=== PATIENT | male | born 1960 | race Caucasian/White ===

== ENCOUNTER → 2016-11-22 | Outpatient (CLI) | payer BC ==
--- NOTE | 2016-11-22 21:10 | XR ---
EXAMINATION TYPE: XR cervical spine comp DATE OF EXAM: 11/22/2016 4:54 PM TECHNIQUE: Frontal, lateral, oblique, and open mouth view of the cervical spine are obtained. HISTORY: Cervicalgia per order COMPARISON: MRI cervical spine May 28, 2015. FINDINGS: The cervical spine is visualized in its entirety from C1 thru the top of T1 level, it is s atisfactory in alignment without evidence of acute fracture or dislocation. The pre-vertebral soft t issue appears within normal limits. The C1-C2 articulation is within normal limits on the open mouth view. Vertebral body heights are maintained. There is mild to moderate multilevel spurring centered in the mid cervical spine. There is mild disc space narrowing at C6-C7 level. There are multilevel u ncovertebral facet degenerative changes seen bilaterally. The oblique images are within normal limits . Overlying soft tissue is unremarkable. IMPRESSION: Multilevel degenerative change as detailed above.
--- NOTE | 2016-11-22 21:14 | XR ---
EXAMINATION TYPE: XR lumbar spine 2 or 3V DATE OF EXAM: 11/22/2016 4:54 PM CLINICAL HISTORY: Low back pain for months. TECHNIQUE: Frontal and lateral images of the lumbar spine are obtained. COMPARISON: CT abdomen and pelvis January 26, 2015 FINDINGS: There are 5 lumbar type vertebral bodies identified. The lumbar spine shows persistent gr yessy 1 anterolisthesis L4 on L5 without evidence of acute fracture or dislocation. Vertebral body heig hts are within normal limits. There is mild disc space narrowing at L3-L4 and L4-L5 levels . Mild anterior spurring L3-L4 level is seen. Multilevel facet arthropathy is noted at lower lumbar levels. Some vascular calcification in the overlying soft tissue is seen. IMPRESSION: Multilevel degenerative changes in the lumbar spine as detailed above, no significant suellen nge from prior CT is identified.
== END | disposition home or self-care (01) ==
LOC: RADXRMAIN 16:21
PROVIDERS: ATTEND Physician Assistant
DX: M47.816 Spondylosis without myelopathy or radiculopathy, lumbar region (principal); M47.812 Spondylosis without myelopathy or radiculopathy, cervical region
CPT/HCPCS: 72050; 72100

== ENCOUNTER → 2017-03-01 | Outpatient (CLI) | payer BC ==
--- NOTE | 2017-03-01 13:08 | MR ---
EXAMINATION TYPE: MR cervical spine wo con DATE OF EXAM: 03/01/2017 9:45 AM COMPARISON: Previous exam 28 May 2015 HISTORY: Cervical disc degeneration TECHNIQUE: Multiplanar, multisequence images of the cervical spine were acquired. C2-C3: There is foraminal encroachment right greater than left. No evident disc herniation or central canal stenosis. C3-C4: Small central posterior disc protrusion causes minimal anterior mass effect on the thecal sac. Bilateral foraminal encroachment is present, some loss of disc height and signal noted. C4-C5: Bilateral foraminal encroachment is present. Broad-based posterior disc bulge causes only mini mal anterior mass effect on the thecal sac, loss of disc height is present C5-C6: Posterior extension of central disc herniation causes anterior mass effect on the thecal sac. No significant central stenosis. There is some loss of disc height and signal compatible with disc de siccation and degenerative disc disease. Foraminal encroachment is stable right greater than left. C6-C7: Similar to prior exam there is posterior extension of endplate disc complex resulting in moder ate to severe central canal stenosis, bilateral foraminal encroachment is present lateral extension e ndplate disc complex, loss of disc height and signal, there is associated spondylosis. C7-T1: No evidence for degenerative disc disease. No disc bulge/herniation or protrusion. No Canal stenosis. Foramina are patent bilaterally. Cervical segments are intact. There is normal alignment. Cervical spinal cord is of normal signal. Craniovertebral junction relationships are within normal limits. Cervical vertebral bodies show pre served height and alignment. IMPRESSION: Findings are essentially stable. Multilevel degenerative disc disease and facet arthropathy. Spinal s tenosis greatest at C6-7 as on prior exam.
== END | disposition home or self-care (01) ==
LOC: RADMRIMAIN 09:17
PROVIDERS: ATTEND Family Medicine
DX: M48.02 Spinal stenosis, cervical region (principal); M50.30 Other cervical disc degeneration, unspecified cervical region; M46.92 Unspecified inflammatory spondylopathy, cervical region
CPT/HCPCS: 72141

== ENCOUNTER → 2017-09-11 | Outpatient (CLI) | payer BC ==
--- NOTE | 2017-09-11 07:31 | MR ---
EXAMINATION TYPE: MR lumbar spine wo con DATE OF EXAM: 09/11/2017 COMPARISON: X-ray dated 11/22/2016 HISTORY: Lumbago TECHNIQUE: T1 and T2 axial and sagittal images of the lumbar spine are submitted. FINDINGS: There is no abnormal signal seen within the visualized spinal cord or paraspinal soft tissu es. Vertebral hemangioma T12 and L1. At L1-2 there is no disc herniation or canal stenosis. No foraminal encroachment. Vertebral body felicita ngioma of L1. At L2-3 there is hypertrophic change of the facets with no disc herniation or canal stenosis. No fora edith encroachment. At L3-4 there is degenerative disc disease and facet arthropathy. Broad-based central disc bulging. M ild effacement of thecal sac. There is mild bilateral foraminal encroachment. At L4-5 there is facet arthropathy there is marked. Remote trauma involving the left facet joint not excluded. There is diffuse circumferential disc bulging. Moderate bilateral foraminal encroachment an d borderline to mild central stenosis. At L5-S1 there is marked facet arthropathy. There is circumferential disc bulging and mild bilateral foraminal encroachment. No Canal stenosis. IMPRESSION: 1. Multilevel degenerative disc disease with facet arthropathy particularly noted at L4-5 and L5-S1 a s discussed above. Results in grade 1 anterolisthesis of L4 on L5 with bilateral foraminal encroachme nt and borderline to mild canal stenosis. 2. Multilevel foraminal encroachment as discussed above with no evidence of discrete herniation.
== END | disposition home or self-care (01) ==
LOC: RADMRIMAIN 06:32
PROVIDERS: ATTEND Psychiatry & Neurology Pain Medicine
DX: M48.061 Spinal stenosis, lumbar region without neurogenic claudication (principal); M43.16 Spondylolisthesis, lumbar region; M51.37 Other intervertebral disc degeneration, lumbosacral region; M46.97 Unspecified inflammatory spondylopathy, lumbosacral region; Z88.2 Allergy status to sulfonamides
CPT/HCPCS: 72148

== ENCOUNTER → 2018-03-28 | Outpatient (CLI) | payer BC ==
--- NOTE | 2018-03-28 11:02 | XR ---
EXAMINATION TYPE: XR chest 2V DATE OF EXAM: 03/28/2018 COMPARISON: 01/26/2015 HISTORY: Cough and wheezing for 4 months TECHNIQUE: Frontal and lateral views of the chest are obtained. FINDINGS: There is no focal air space opacity, pleural effusion, or pneumothorax seen. The cardiac silhouette size is within normal limits. The osseous structures are intact. Degenerative changes of the thoracic spine are slightly progressed in comparison to the prior. IMPRESSION: No acute cardiopulmonary process.
== END | disposition home or self-care (01) ==
LOC: RADXRMAIN 10:30
PROVIDERS: ATTEND Physician Assistant
DX: R05 Cough (principal)
CPT/HCPCS: 71046

== ENCOUNTER → 2018-09-19 | Outpatient (CLI) | payer BC ==
--- NOTE | 2018-09-19 14:51 | XR ---
EXAMINATION TYPE: XR tibia fibula LT DATE OF EXAM: 09/19/2018 CLINICAL HISTORY: pain TECHNIQUE: AP and lateral images of the left tibia and fibula are obtained. COMPARISON: None. FINDINGS: There is no acute fracture/dislocation evident. The joint spaces appear within normal garcia its. The overlying soft tissue appears unremarkable. IMPRESSION: There is no acute fracture or dislocation seen. ICD 10 NO FRACTURE, INITIAL EVALUATION
== END ==
LOC: RADXRMAIN 13:47
PROVIDERS: ATTEND Physician Assistant
DX: M79.605 Pain in left leg (principal)

== ENCOUNTER → 2018-10-15 | Outpatient (CLI) | payer BC ==
--- NOTE | 2018-10-15 10:54 | US ---
EXAMINATION TYPE: US liver DATE OF EXAM: 10/15/2018 COMPARISON: CT 2014. CLINICAL HISTORY: R94.5 Abnormal results of liver function studies. EXAM MEASUREMENTS: Liver Length: 11.5 cm Gallbladder Wall: 0.3 cm CBD: 0.5 cm Right Kidney: 11.1 x 6.3 x 5.4 cm Pancreas: not visualized due to midline bowel gas Liver: Increased attenuation Gallbladder: No stones seen Evidence for sonographic Fried's sign: No CBD: wnl Right Kidney: No hydronephrosis or masses seen Suboptimal evaluation of pancreas on images saved secondary to shadowing from overlying bowel gas. Vi sualized liver is heterogeneously hyperechoic in appearance. Evaluation for focal masses is suboptima l due to the heterogeneity. No intrahepatic ductal dilatation is seen. IMPRESSION: Marked heterogeneous hyperechoic appearance of liver identified could reflect product of diffuse fatty infiltration or underlying hepatocellular disease. Imaging guided random biopsy for tis norris analysis can be performed if desired.
== END ==
LOC: RADUSWWP 10:26
PROVIDERS: ATTEND Family Medicine
DX: R94.5 Abnormal results of liver function studies (principal)
CPT/HCPCS: 76705

== ENCOUNTER → 2018-11-06 | Outpatient (CLI) | payer BC ==
[2018-11-06 15:29] VITALS: BMI 30.4
== END | disposition home or self-care (01) ==
LOC: LABWHC1 13:01
PROVIDERS: ATTEND Family Medicine
DX: E78.5 Hyperlipidemia, unspecified (principal)
CPT/HCPCS: 97802

== ENCOUNTER 2019-07-09 19:07 | Observation (INO) | payer BC ==
[2019-07-09] MEDS ORDERED: ONDANSETRON 4 MG/2 ML VIAL IVP STA (20:54)
[2019-07-09] MEDS ORDERED: KETOROLAC 30 MG/ML 1 ML VIAL IVP STA (20:54)
[2019-07-09] MEDS ORDERED: SODIUM CHLORIDE 0.9% 1,000 ML IV ONE (20:54)
--- NOTE | 2019-07-09 21:37 | XR ---
EXAMINATION TYPE: XR chest 2V DATE OF EXAM: 07/09/2019 COMPARISON: 03/28/2018 HISTORY: The right of the breathing TECHNIQUE: Frontal and lateral views of the chest are obtained. FINDINGS: Heart and mediastinum are normal. Lungs are clear. Diaphragm is normal. There are chest le ads. Bony thorax is intact. IMPRESSION: Normal chest. No change.
[2019-07-09 21:38] LABS: Basophils # (A) 0.3 k/uL (0-0.2); Basophils % (A) 2 %; Eosinophils # (A) 0.1 k/uL (0-0.7); Eosinophils % (A) 1 %; HCT 46.1 % (39.0-53.0); HGB 15.3 gm/dL (13.0-17.5); Lymphocytes # (A) 0.7 k/uL (1.0-4.8); Lymphocytes % (A) 6 %; MCH 29.6 pg (25.0-35.0); MCHC 33.1 g/dL (31.0-37.0); MCV 89.4 fL (80.0-100.0); Mean Platelet Volume 7.1; Monocytes # (A) 0.8 k/uL (0-1.0); Monocytes % (A) 7 %; Neutrophils # (A) 10.3 k/uL (1.3-7.7); Neutrophils % (A) 84 %; Platelet Count 310 k/uL (150-450); RBC 5.16 m/uL (4.30-5.90); RDW 12.9 % (11.5-15.5); WBC 12.3 k/uL (3.8-10.6)
[2019-07-09 21:52] LABS: D-Dimer 0.35 mg/L FEU (<0.60); INR 0.9 (<1.2); Partial Thromboplastin Time 22.6 sec (22.0-30.0); Prothrombin Time 9.4 sec (9.0-12.0)
[2019-07-09 22:02] LABS: ALT 34 U/L (21-72); AST 34 U/L (17-59); African American GFR (CKD) >90 (>60 ml/min/1.73 sqM); Albumin 4.9 g/dL (3.5-5.0); Alkaline Phosphatase 93 U/L (38-126); Amylase 41 U/L (30-110); Anion Gap 11 mmol/L; Blood Urea Nitrogen 22 mg/dL (9-20); Calcium 9.9 mg/dL (8.4-10.2); Carbon Dioxide 26 mmol/L (22-30); Chloride 104 mmol/L (98-107); Glucose 128 mg/dL (74-99); Potassium 4.9 mmol/L (3.5-5.1); Sodium 141 mmol/L (137-145); Total Bilirubin 0.3 mg/dL (0.2-1.3); Total Protein 8.1 g/dL (6.3-8.2)
[2019-07-09] MEDS ORDERED: HYDROcodone/APAP 10-325MG 1 EACH TAB PO ONE (23:58)
--- NOTE | 2019-07-09 23:59 | CT ---
EXAMINATION TYPE: CT brain wo con DATE OF EXAM: 07/09/2019 COMPARISON: None HISTORY: Headache CT DLP: mGycm Automated exposure control for dose reduction was used. FINDINGS: Ventricles have normal size. There is no mass effect nor midline shift. There is no sign of intracran ial hemorrhage. The calvarium is intact. IMPRESSION: NEGATIVE HEAD CT SCAN.
[2019-07-10] MEDS ORDERED: NALOXONE 0.4 MG/ML 1 ML VIAL IV PRN (00:05)
[2019-07-10] MEDS ORDERED: ONDANSETRON 4 MG/2 ML VIAL IVP PRN (00:05)
--- NOTE | 2019-07-10 00:05 | ED ---
SOB HPI - General Chief Complaint: Shortness of Breath Stated Complaint: syncope Time Seen by Provider: 07/09/19 20:00 Source: patient Mode of arrival: wheelchair Limitations: no limitations - History of Present Illness Initial Comments: 59-year-old male patient presents to the emergency department today for evaluation after experiencing episode of shortness of breath at work. Patient states that around 7 PM this evening he developed acute onset of dizziness, sweats, shortness of breath, chest pain, and vomiting. Patient states he is having discomfort and bloating in his abdomen. He states that he is currently being treated for upper respiratory infection with Augmentin and prednisone. Patient states he took these medications approximately 2 hours prior to symptom onset. Patient states that he left work and went to his car where he passed out. Patient is unsure how long he was out for. Patient is also reporting severe headache. Denies history of headaches. Denies recent head injury. Denies any blurred or double vision. States he is dizzy. Denies any numbness or tingling to his extremities. Patient denies any recent rash, back pain, numbness, tingling, dizziness, weakness, hematuria, dysuria, urinary urgency, urinary frequency, or any other complaints. - Related Data Home Medications Medication Instructions Recorded Confirmed amLODIPine [Norvasc] 10 mg PO DAILY 02/06/15 07/09/19 Amoxic-Pot Clav 875-125Mg 1 tab PO Q12HR 07/09/19 07/09/19 [Augmentin 875-125] Cyclobenzaprine [Flexeril] 10 mg PO TID 07/09/19 07/09/19 Hydrocodone Bitartrate [Hysingla 40 mg PO BID 07/09/19 07/09/19 ER] Losartan Potassium 50 mg PO HS 07/09/19 07/09/19 methylPREDNISolone [Medrol Dose See Taper PO DIRECTED 07/09/19 07/09/19 Pack] Previous Rx's Medication Instructions Recorded Metoprolol Tartrate [Lopressor] 50 mg PO BID #60 tab 01/30/15 Allergies Allergy/AdvReac Type Severity Reaction Status Date / Time Sulfa (Sulfonamide Allergy Severe Anaphylaxis Verified 07/09/19 20:06 Antibiotics) Review of Systems ROS Statement: Those systems with pertinent positive or pertinent negative responses have been documented in the HPI. ROS Other: All systems not noted in ROS Statement are negative. Past Medical History Past Medical History: Cancer, GERD/Reflux, Hyperlipidemia, Hypertension, Osteoarthritis (OA), Skin Disorder Additional Past Medical History / Comment(s): PSORIASIS. HAD REACTION TO SULFA AFTER DOG BITE, he developed Alzo-Juan Manuel syndrome. History of Any Multi-Drug Resistant Organisms: None Reported Past Surgical History: Appendectomy, Tonsillectomy Additional Past Surgical History / Comment(s): RT HAND I&D D/T DOG BITE. NOSE FX REPAIR. EGD 01/2015. skin cancer to thumb with rmoval Past Anesthesia/Blood Transfusion Reactions: No Reported Reaction Past Psychological History: Depression Smoking Status: Never smoker Past Alcohol Use History: Occasional Past Drug Use History: None Reported - Past Family History Father Family Medical History: Cancer, Coronary Artery Disease (CAD) General Exam Limitations: no limitations General appearance: alert, in no apparent distress, other (This is a well- developed, well-nourished adult male patient in no acute distress. Vital signs upon presentation are temperature 98.6F, pulse 112, respirations 20, blood pressure 146/98, pulse ox 99% on room air.) Eye exam: Present: normal appearance, PERRL, EOMI. Absent: scleral icterus, conjunctival injection, periorbital swelling ENT exam: Present: normal exam, normal oropharynx, mucous membranes moist Respiratory exam: Present: normal lung sounds bilaterally. Absent: respiratory distress, wheezes, rales, rhonchi, stridor Cardiovascular Exam: Present: regular rate, normal rhythm, normal heart sounds. Absent: systolic murmur, diastolic murmur, rubs, gallop, clicks GI/Abdominal exam: Present: soft, normal bowel sounds. Absent: distended, tenderness, guarding, rebound, rigid Neurological exam: Present: alert, oriented X3, CN II-XII intact, other (Strength in all 4 extremities is 5/5) Psychiatric exam: Present: normal affect, normal mood Skin exam: Present: warm, dry, intact, normal color. Absent: rash Course Vital Signs 07/09/19 07/09/19 07/09/19 19:40 20:06 21:24 Temperature 98.6 F Pulse Rate 112 H 107 H 93 Respiratory 20 18 18 Rate Blood Pressure 146/98 114/64 134/95 O2 Sat by Pulse 99 99 96 Oximetry 07/09/19 07/09/19 23:00 23:30 Temperature Pulse Rate 105 H 101 H Respiratory 17 19 Rate Blood Pressure 137/97 134/96 O2 Sat by Pulse 98 99 Oximetry Medical Decision Making - Medical Decision Making 59-year-old male patient presents to the emergency department today for multiple complaints. Chief among them are headache, shortness of breath, and chest discomfort. Patient also reports vomiting, abdominal distention, and abdominal tenderness. Physical examination revealed mild tenderness over the lower abdomen. White blood cell count at 12. Chest x-ray showed no acute cardiopulmonary process. CT brain without contrast was unremarkable. Labs r eviewed and did reveal evidence for dehydration. I did discuss findings and results with the patient. Upon reevaluation he states he is not feeling any better. Continue 6 red shortness of breath and headache. He'll be admitted for serial troponins evaluation by cardiology. He verbalizes understanding and agrees with this plan. - Lab Data Result diagrams: 07/09/19 21:15 07/09/19 21:15 Lab Results 07/09/19 07/09/19 07/09/19 Range/Units 21:15 21:15 21:15 WBC 12.3 H (3.8-10.6) k/uL RBC 5.16 (4.30-5.90) m/uL Hgb 15.3 (13.0-17.5) gm/dL Hct 46.1 (39.0-53.0) % MCV 89.4 (80.0-100.0) fL MCH 29.6 (25.0-35.0) pg MCHC 33.1 (31.0-37.0) g/dL RDW 12.9 (11.5-15.5) % Plt Count 310 (150-450) k/uL Neutrophils % 84 % Lymphocytes % 6 % Monocytes % 7 % Eosinophils % 1 % Basophils % 2 % Neutrophils # 10.3 H (1.3-7.7) k/uL Lymphocytes # 0.7 L (1.0-4.8) k/uL Monocytes # 0.8 (0-1.0) k/uL Eosinophils # 0.1 (0-0.7) k/uL Basophils # 0.3 H (0-0.2) k/uL PT 9.4 (9.0-12.0) sec INR 0.9 (<1.2) APTT 22.6 (22.0-30.0) sec D-Dimer 0.35 (<0.60) mg/L FEU Sodium 141 (137-145) mmol/L Potassium 4.9 (3.5-5.1) mmol/L Chloride 104 (98-107) mmol/L Carbon Dioxide 26 (22-30) mmol/L Anion Gap 11 mmol/L BUN 22 H (9-20) mg/dL Creatinine 0.89 (0.66-1.25) mg/dL Est GFR (CKD-EPI)AfAm >90 (>60 ml/min/1.73 sqM) Est GFR (CKD-EPI)NonAf >90 (>60 ml/min/1.73 sqM) Glucose 128 H (74-99) mg/dL Calcium 9.9 (8.4-10.2) mg/dL Total Bilirubin 0.3 (0.2-1.3) mg/dL AST 34 (17-59) U/L ALT 34 (21-72) U/L Alkaline Phosphatase 93 (38-126) U/L Troponin I (0.000-0.034) ng/mL Total Protein 8.1 (6.3-8.2) g/dL Albumin 4.9 (3.5-5.0) g/dL Amylase 41 (30-110) U/L Lipase 50 (23-300) U/L 07/09/19 Range/Units 21:15 WBC (3.8-10.6) k/uL RBC (4.30-5.90) m/uL Hgb (13.0-17.5) gm/dL Hct (39.0-53.0) % MCV (80.0-100.0) fL MCH (25.0-35.0) pg MCHC (31.0-37.0) g/dL RDW (11.5-15.5) % Plt Count (150-450) k/uL Neutrophils % % Lymphocytes % % Monocytes % % Eosinophils % % Basophils % % Neutrophils # (1.3-7.7) k/uL Lymphocytes # (1.0-4.8) k/uL Monocytes # (0-1.0) k/uL Eosinophils # (0-0.7) k/uL Basophils # (0-0.2) k/uL PT (9.0-12.0) sec INR (<1.2) APTT (22.0-30.0) sec D-Dimer (<0.60) mg/L FEU Sodium (137-145) mmol/L Potassium (3.5-5.1) mmol/L Chloride (98-107) mmol/L Carbon Dioxide (22-30) mmol/L Anion Gap mmol/L BUN (9-20) mg/dL Creatinine (0.66-1.25) mg/dL Est GFR (CKD-EPI)AfAm (>60 ml/min/1.73 sqM) Est GFR (CKD-EPI)NonAf (>60 ml/min/1.73 sqM) Glucose (74-99) mg/dL Calcium (8.4-10.2) mg/dL Total Bilirubin (0.2-1.3) mg/dL AST (17-59) U/L ALT (21-72) U/L Alkaline Phosphatase (38-126) U/L Troponin I <0.012 (0.000-0.034) ng/mL Total Protein (6.3-8.2) g/dL Albumin (3.5-5.0) g/dL Amylase (30-110) U/L Lipase (23-300) U/L - EKG Data -: EKG Interpreted by Nm EKG Comments: EKG obtained at 2108 shows normal sinus rhythm with a ventricular rate of 89, MI interval 138, QRS duration 102, QT 348, QTC 423. No evidence of ST elevation or depression. - Radiology Data Radiology results: report reviewed, image reviewed Two-view x-ray of the chest is obtained. Report was reviewed in its entirety. Impression by Dr. Palacios shows normal chest with no change. CT brain without contrast was obtained. Report was reviewed in its entirety. Impression by Dr. Palacios shows negative head CT scan. Disposition Clinical Impression: Chest pain, Dyspnea, Headache Disposition: ADMITTED IP TO THIS [facility] Condition: Serious Referrals: Dayo Luo MD [Primary Care Provider] - 1-2 days Decision to Admit Reason: Admit from EC Decision Date: 07/10/19 Decision Time: 00:05
[2019-07-10 07:00] VITALS: BMI 30.8
--- NOTE | 2019-07-10 08:12 | P.CRDCN ---
History of Present Illness Consult date: 07/10/19 Requesting physician: Dayo Luo Chief complaint: diaphoresis, dizziness History of present illness: This is a pleasant 59-year-old gentleman with multiple medical issues. The patient states he has disc problems in his back for which she is treated at the pain clinic, he also has some nerve issues in his fingers and toes, also states he has several ALLERGIES to medications. He states he was told to have had a myocardial infarction in the past however he never underwent cardiac catheterization or intervention. Patient states that he has been dealing with an upper respiratory infection, he's been coughing up green sputum, and was initiated on Augmentin. Prior to this patient states he was also started on any medication at the pain clinic, he forgets the name. Patient was at work yesterday, states that he got extremely diaphoretic, developed chills and was shaking. Patient also states that he had a headache which initially started on Monday. He states that he walked out to his car to change his shirt because it was soaking wet, he knows that he needed to the car, but the next thing he recalls is waking up to one of his coworkers. Patient was then brought to the emergency room. On arrival to the emergency room, patient states he had some lower abdominal pain and continues to have chills. He denies having any chest discomfort. Patient does state that he felt short of breath, he's not sure if it was related to anxiety but he was unable to take a deep breath. Chest x-ray on admission was normal. CAT scan of the brain was negative. EKG shows normal sinus rhythm with no acute changes. Blood pressure ranges from 120 systolic to 160s systolic over 90, heart rate in the 70s, 99% on room air. White blood cell count 12.3, hemoglobin 15.3, beta count 310. D-dimer 0.3. Sodium 141, potassium 4.9, BUN 22, creatinine 0.8. Troponins are negative 2. Past Medical History Past Medical History: Cancer, GERD/Reflux, Hyperlipidemia, Hypertension, Osteoarthritis (OA), Skin Disorder Additional Past Medical History / Comment(s): PSORIASIS. HAD REACTION TO SULFA AFTER DOG BITE, he developed Lazo-Juan Manuel syndrome. History of Any Multi-Drug Resistant Organisms: None Reported Past Surgical History: Appendectomy, Tonsillectomy Additional Past Surgical History / Comment(s): RT HAND I&D D/T DOG BITE. NOSE FX REPAIR. EGD 01/2015. skin cancer to thumb with rmoval Past Anesthesia/Blood Transfusion Reactions: No Reported Reaction Past Psychological History: Depression Additional Psychological History / Comment(s): IN PAST Smoking Status: Never smoker Past Alcohol Use History: Occasional Past Drug Use History: None Reported - Past Family History Father Family Medical History: Cancer, Coronary Artery Disease (CAD) Medications and Allergies Home Medications Medication Instructions Recorded Confirmed Type Metoprolol Tartrate [Lopressor] 50 mg PO BID #60 tab 01/30/15 07/09/19 Rx amLODIPine [Norvasc] 10 mg PO DAILY 02/06/15 07/09/19 History Amoxic-Pot Clav 875-125Mg 1 tab PO Q12HR 07/09/19 07/09/19 History [Augmentin 875-125] Cyclobenzaprine [Flexeril] 10 mg PO TID 07/09/19 07/09/19 History Hydrocodone Bitartrate [Hysingla 40 mg PO BID 07/09/19 07/09/19 History ER] Losartan Potassium 50 mg PO HS 07/09/19 07/09/19 History methylPREDNISolone [Medrol Dose See Taper PO DIRECTED 07/09/19 07/09/19 History Pack] Allergies Allergy/AdvReac Type Severity Reaction Status Date / Time Sulfa (Sulfonamide Allergy Severe Anaphylaxis Verified 07/09/19 20:06 Antibiotics) Physical Exam Vitals: Vital Signs Temp Pulse Pulse Resp BP BP Pulse Ox 07/10/19 06:50 97.9 F 79 16 160/97 99 07/10/19 06:17 98.7 F 88 18 123/95 98 07/10/19 05:06 90 19 126/95 100 07/10/19 02:00 99 17 134/94 97 07/10/19 01:00 98 17 135/90 98 07/10/19 00:31 106 H 18 135/90 98 07/10/19 00:00 99 18 134/96 99 07/09/19 23:30 101 H 19 134/96 99 07/09/19 23:00 105 H 17 137/97 98 07/09/19 21:24 93 18 134/95 96 07/09/19 20:06 107 H 18 114/64 99 07/09/19 19:40 98.6 F 112 H 20 146/98 99 Intake and Output 07/09/19 07/10/19 07/10/19 22:59 06:59 14:59 Other: Weight 87.997 kg PHYSICAL EXAMINATION: GENERAL: 59-year-old gentleman in no acute distress at the time of my examination HEENT: Head is atraumatic, normocephalic. Pupils equal, round. Sclera anicteric. Conjunctiva are clear. Mucous membranes of the mouth are moist. Neck is supple. There is no elevated jugular venous pressure. No carotid bruit is heard. HEART EXAMINATION: Heart S1, S2 normal. No murmur or gallop heard. CHEST EXAMINATION: Lungs are clear to auscultation and precussion. No chest wall tenderness is noted on palpation or with deep breathing. ABDOMEN: Soft, mild lower abdominal tenderness . Bowel sounds are heard. No organomegaly noted. EXTREMITIES: 2+ peripheral pulses with no evidence of peripheral edema and no calf tenderness noted. NEUROLOGIC patient is awake, alert and oriented 3 . . Results 07/09/19 21:15 07/09/19 21:15 Cardiac Enzymes 07/09/19 07/09/19 07/10/19 Range/Units 21:15 21:15 03:24 AST 34 (17-59) U/L Troponin I <0.012 <0.012 (0.000-0.034) ng/mL Coagulation 07/09/19 Range/Units 21:15 PT 9.4 (9.0-12.0) sec APTT 22.6 (22.0-30.0) sec CBC 07/09/19 Range/Units 21:15 WBC 12.3 H (3.8-10.6) k/uL RBC 5.16 (4.30-5.90) m/uL Hgb 15.3 (13.0-17.5) gm/dL Hct 46.1 (39.0-53.0) % Plt Count 310 (150-450) k/uL Comprehensive Metabolic Panel 07/09/19 Range/Units 21:15 Sodium 141 (137-145) mmol/L Potassium 4.9 (3.5-5.1) mmol/L Chloride 104 (98-107) mmol/L Carbon Dioxide 26 (22-30) mmol/L BUN 22 H (9-20) mg/dL Creatinine 0.89 (0.66-1.25) mg/dL Glucose 128 H (74-99) mg/dL Calcium 9.9 (8.4-10.2) mg/dL AST 34 (17-59) U/L ALT 34 (21-72) U/L Alkaline Phosphatase 93 (38-126) U/L Total Protein 8.1 (6.3-8.2) g/dL Albumin 4.9 (3.5-5.0) g/dL Current Medications Generic Name Dose Route Start Last Admin Trade Name Freq PRN Reason Stop Dose Admin Hydrocodone Bitart/Acetaminophen 1 each 07/10/19 00:08 [place] 10 PO Q6H PRN Pain Amlodipine Besylate 10 mg 07/10/19 09:00 Norvasc PO DAILY RAJENDRA Losartan Potassium 50 mg 07/10/19 21:00 Cozaar PO HS RAJENDRA Metoprolol Tartrate 50 mg 07/10/19 09:00 Lopressor PO BID RAJENDRA Naloxone HCl 0.2 mg 07/10/19 00:05 Narcan IV Q2M PRN Opioid Reversal Ondansetron HCl 4 mg 07/10/19 00:05 Zofran IVP Q8HR PRN Nausea And Vomiting Intake and Output 07/09/19 07/10/19 07/10/19 22:59 06:59 14:59 Other: Weight 87.997 kg 07/09/19 21:15 07/09/19 21:15 EKG Interpretations (text) EKG shows normal sinus rhythm with no acute changes. Assessment and Plan Plan: Assessment and plan #1 symptoms of diaphoresis with associated chills and shaking, recently started on Augmentin for upper respiratory infection #2 episode of shortness of breath, inability to take a deep breath, no chest discomfort. Troponins negative 2. EKG shows normal sinus rhythm with no acute changes. #3 hypertension #4 chronic back problems, with chronic pain Plan Patient's presentation does not appear to be cardiac in nature. We will obtain an echocardiogram with Doppler study as well as third troponin. Further recommendations to follow. DNP note has been reviewed, I agree with a documented findings and plan of care. Patient was seen and examined.
[2019-07-10] MEDS: HYDROcodone/APAP 10-325MG 1 EACH TAB PO PRN ×3 (08:31→20:29)
[2019-07-10] MEDS: METOPROLOL TARTRATE 50 MG TAB PO SCH ×2 (08:31→20:29)
[2019-07-10] MEDS: amLODIPine 10 MG TAB PO SCH (08:31)
[2019-07-10] MEDS ORDERED: TRIMETHOBENZAMIDE 300 MG CAP PO PRN (11:51)
--- NOTE | 2019-07-10 11:52 | P.HPIM ---
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 Bebe ent was admitted from emergency room for chest pain as per emergency room doctor who discussed the case with me, however on evaluating the patient he states he did not have chest pain in his stated he came because of feeling well. He says about one-week ago he had some neck pain when he takes 3 pills of Medora which usually he takes, however Monday and Monday about 4-5 days ago he started to have it headache with runny nose and cough and with green phlegm, and burning in his throat. patient did not feel well so he went to see his PCP Dr. Luo on Monday about 2 days ago when he prescribed him steroids on Augmentin but he did not become sometime next day which is yesterday, patient states after couple hours from taking his pills he starts feeling pale sweating with shaking. He was at work and wanted to leave but he passed out in his van and has a friend help him out of the van so he came to the hospital where that time he is having headache and slurred just being with light bothering him with a little short of breath. Currently patient feels better with more symptoms improving including headache. But he denies dizziness or chest pain. He denies dyspnea currently. His runny nose has stopped. He still have coughing and he has lower abdominal pain. He states that he feels uncomfortable when he piece with some burning. Patient states is been constipated and his last bowel movement was about 3 days ago, no diarrhea. Patient has decreased appetite. Vitas looks stable. Showing mild leukocytosis of 12.3 K, ptosis of d-dimer were negative at 0.35 and 0.26, creatinine within normal limits at 0.8, serial troponins were negative. Liver enzymes not elevated. Negative CAT scan of the brain and chest x-ray for acute process per Radiologist. EKG showing normal sinus rhythm at [address]-T changes and QTC is 423. In the emergency room he was given fluid resuscitation and Toradol, Medora, Review of Systems CONSTITUTIONAL: No fever, no malaise, no fatigue. HEENT: No recent visual problems or hearing problems. Denied any sore throat. CARDIOVASCULAR: No orthopnea, PND, no palpitations, no syncope. PULMONARY: No shortness of breath, no cough, no hemoptysis. GASTROINTESTINAL: No diarrhea, no nausea, no vomiting, no abdominal pain. Normoactive bowel sounds. NEUROLOGICAL: No headaches, no weakness, no numbness. HEMATOLOGICAL: Denies any bleeding or petechiae. GENITOURINARY: Denies any burning micturition, frequency, or urgency. MUSCULOSKELETAL/RHEUMATOLOGICAL: Denies any joint pain, swelling, or any muscle pain. ENDOCRINE: Denies any polyuria or polydipsia. Past Medical History Past Medical History: Cancer, GERD/Reflux, Hyperlipidemia, Hypertension, Osteoarthritis (OA), Skin Disorder Additional Past Medical History / Comment(s): PSORIASIS. HAD REACTION TO SULFA AFTER DOG BITE, he developed Lazo-Juan Manuel syndrome. History of Any Multi-Drug Resistant Organisms: None Reported Past Surgical History: Appendectomy, Tonsillectomy Additional Past Surgical History / Comment(s): RT HAND I&D D/T DOG BITE. NOSE FX REPAIR. EGD 01/2015. skin cancer to thumb with rmoval Past Anesthesia/Blood Transfusion Reactions: No Reported Reaction Past Psychological History: Depression Additional Psychological History / Comment(s): IN PAST Smoking Status: Never smoker Past Alcohol Use History: Occasional Past Drug Use History: None Reported - Past Family History Father Family Medical History: Cancer, Coronary Artery Disease (CAD) Medications and Allergies Home Medications Medication Instructions Recorded Confirmed Type Metoprolol Tartrate [Lopressor] 50 mg PO BID #60 tab 01/30/15 07/09/19 Rx amLODIPine [Norvasc] 10 mg PO DAILY 02/06/15 07/09/19 History Amoxic-Pot Clav 875-125Mg 1 tab PO Q12HR 07/09/19 07/09/19 History [Augmentin 875-125] Cyclobenzaprine [Flexeril] 10 mg PO TID 07/09/19 07/09/19 History Hydrocodone Bitartrate [Hysingla 40 mg PO BID 07/09/19 07/09/19 History ER] Losartan Potassium 50 mg PO HS 07/09/19 07/09/19 History methylPREDNISolone [Medrol Dose See Taper PO DIRECTED 07/09/19 07/09/19 History Pack] Allergies Allergy/AdvReac Type Severity Reaction Status Date / Time Sulfa (Sulfonamide Allergy Severe Anaphylaxis Verified 07/09/19 20:06 Antibiotics) Physical Exam Vitals: Vital Signs Temp Pulse Pulse Resp BP BP Pulse Ox 07/10/19 08:00 98 F 95 18 166/100 99 07/10/19 06:50 97.9 F 79 16 160/97 99 07/10/19 06:17 98.7 F 88 18 123/95 98 07/10/19 05:06 90 19 126/95 100 07/10/19 02:00 99 17 134/94 97 07/10/19 01:00 98 17 135/90 98 07/10/19 00:31 106 H 18 135/90 98 07/10/19 00:00 99 18 134/96 99 07/09/19 23:30 101 H 19 134/96 99 07/09/19 23:00 105 H 17 137/97 98 07/09/19 21:24 93 18 134/95 96 07/09/19 20:06 107 H 18 114/64 99 07/09/19 19:40 98.6 F 112 H 20 146/98 99 Intake and Output 07/09/19 07/10/19 07/10/19 22:59 06:59 14:59 Other: Weight 87.997 kg GENERAL: The patient is alert and oriented x3, not in any acute distress. Well developed, well nourished. HEENT: Pupils are round and equally reacting to light. EOMI. No scleral icterus. No conjunctival pallor. Normocephalic, atraumatic. No pharyngeal erythema. No thyromegaly. CARDIOVASCULAR: S1 and S2 present. No murmurs, rubs, or gallops. PULMONARY: Chest is clear to auscultation, no wheezing or crackles. -ABDOMEN: Soft, suprapubic tenderness, no rebound tenderness or guarding, nondistended, normoactive bowel sounds. No palpable organomegaly. MUSCULOSKELETAL: No joint swelling or deformity. EXTREMITIES: No cyanosis, clubbing, or pedal edema. NEUROLOGICAL: Gross neurological examination did not reveal any focal deficits. SKIN: No rashes. Results CBC & Chem 7: 07/09/19 21:15 07/09/19 21:15 Labs: Abnormal Lab Results - Last 24 Hours (Table) 07/09/19 07/09/19 Range/Units 21:15 21:15 WBC 12.3 H (3.8-10.6) k/uL Neutrophils # 10.3 H (1.3-7.7) k/uL Lymphocytes # 0.7 L (1.0-4.8) k/uL Basophils # 0.3 H (0-0.2) k/uL BUN 22 H (9-20) mg/dL Glucose 128 H (74-99) mg/dL Thrombosis Risk Factor Assmnt - Choose All That Apply Any of the Below Risk Factors Present?: Yes Each Factor Represents 1 point: Age 41-60 years, Obesity (BMI >25) Thrombosis Risk Factor Assessment Total Risk Factor Score: 2 Thrombosis Risk Factor Assessment Level: Low Risk Assessment and Plan Assessment: Syncope Periods of slurred speech and headache Lower abdominal pain and tenderness with urinary discomfort Hyperlipidemia Hypertension GERD Chronic psoriasis Primary osteoarthritis Previous history of Ben Juan Manuel syndrome secondary to sulfa medication Plan: This is a pleasant 59 years old male who presents with several nonspecific symptoms including syncope, abdominal pain and period Of slurred speech. Call cardiology and neurology consult. We'll check for influenza and urine analysis. Repeat labs. We'll put the patient on telemetry. We'll check carotid duplex as well. Start patient on parenteral hydration . check bladder scan. We'll keep monitoring Labs and medication were reviewed.. Continue same treatment. Continue with symptomatic treatment. Resume home medication. Monitor lytes and vitals. DVT and GI prophylaxis. Further recommendations of the clinical course of the patient DVT prophylaxis: Subcutaneous heparin GI Prophylaxis: Pepcid Prognosis is guarded
[2019-07-10] MEDS: DEXTROSE 5%-0.9% NACL 1,000 ML IV SCH (12:01)
[2019-07-10 12:14] LABS: Basophils # (A) 0.1 k/uL (0-0.2); Basophils % (A) 1 %; Eosinophils # (A) 0.1 k/uL (0-0.7); Eosinophils % (A) 2 %; HCT 44.2 % (39.0-53.0); HGB 14.8 gm/dL (13.0-17.5); Lymphocytes # (A) 1.3 k/uL (1.0-4.8); Lymphocytes % (A) 18 %; MCH 30.7 pg (25.0-35.0); MCHC 33.6 g/dL (31.0-37.0); MCV 91.3 fL (80.0-100.0); Mean Platelet Volume 7.7; Monocytes # (A) 0.4 k/uL (0-1.0); Monocytes % (A) 6 %; Neutrophils # (A) 5.2 k/uL (1.3-7.7); Neutrophils % (A) 72 %; Platelet Count 274 k/uL (150-450); RBC 4.84 m/uL (4.30-5.90); RDW 12.9 % (11.5-15.5); WBC 7.3 k/uL (3.8-10.6)
--- NOTE | 2019-07-10 13:01 | ECHOF ---
Referral Reason:sob MEASUREMENTS -------- HEIGHT: 180.3 cm WEIGHT: 88.0 kg BP: 160/97 IVSd: 1.5 cm (0.6 - 1.1) LVIDd: 4.7 cm (3.9 - 5.3) LVPWd: 1.5 cm (0.6 - 1.1) IVSs: 1.7 cm LVIDs: 2.8 cm LVPWs: 1.8 cm LAESV Index (A-L): 17.50 ml/m Ao Diam: 3.2 cm (2.0 - 3.7) AV Cusp: 2.1 cm (1.5 - 2.6) LA Diam: 3.4 cm (2.7 - 3.8) MV EXCURSION: 16.312 mm (> 18.000) MV EF SLOPE: 115 mm/s (70 - 150) EPSS: 0.7 cm MV E Otilio: 0.60 m/s MV DecT: 188 ms MV A Otilio: 0.83 m/s MV E/A Ratio: 0.72 RAP: 5.00 mmHg RVSP: 21.14 mmHg FINDINGS -------- Sinus rhythm. This was a technically adequate study. The left ventricular size is normal. There is moderate concentric left ventricular hypertrophy. O verall left ventricular systolic function is normal with, an EF between 55 - 60 %. The diastolic fi lling pattern is normal for the age of the patient 11.55. The right ventricle is normal in size. Normal LA size by volume 22+/-6 ml/m2. The right atrial size is normal. Interatrial and interventricular septum intact. The aortic valve is trileaflet, and appears structurally normal. No aortic stenosis or regurgitation. The mitral valve leaflets are mildly thickened. Mild mitral regurgitation is present. The tricuspid valve appears structurally normal. Mild tricuspid regurgitation present. Right vent ricular systolic pressure is normal at < 35 mmHg. There is no pulmonic regurgitation present. The aortic root size is normal. Normal inferior vena cava with normal inspiratory collapse consistent with estimated right atrial pre ssure of 5 mmHg. The flow patterns, measured by Doppler, appear normal. There is no pericardial effusion. CONCLUSIONS -------- 1. Sinus rhythm. 2. This was a technically adequate study. 3. The left ventricular size is normal. 4. There is moderate concentric left ventricular hypertrophy. 5. Overall left ventricular systolic function is normal with, an EF between 55 - 60 %. 6. The diastolic filling pattern is normal for the age of the patient 11.55 7. Normal LA size by volume 22+/-6 ml/m2. 8. The aortic valve is trileaflet, and appears structurally normal. No aortic stenosis or regurgitati on. 9. The mitral valve leaflets are mildly thickened. 10. Mild mitral regurgitation is present. 11. The tricuspid valve appears structurally normal. 12. Mild tricuspid regurgitation present. 13. Right ventricular systolic pressure is normal at < 35 mmHg. 14. There is no pulmonic regurgitation present. 15. The aortic root size is normal. 16. Normal inferior vena cava with normal inspiratory collapse consistent with estimated right atrial pressure of 5 mmHg. 17. The flow patterns, measured by Doppler, appear normal. 18. There is no pericardial effusion. BREAK OFF WORKER: Fiorella Meade RDCS
[2019-07-10 13:02] LABS: African American GFR (CKD) >90 (>60 ml/min/1.73 sqM); Anion Gap 12 mmol/L; Blood Urea Nitrogen 21 mg/dL (9-20); Calcium 9.1 mg/dL (8.4-10.2); Carbon Dioxide 25 mmol/L (22-30); Chloride 103 mmol/L (98-107); Glucose 98 mg/dL (74-99); Potassium 4.2 mmol/L (3.5-5.1); Sodium 140 mmol/L (137-145)
--- NOTE | 2019-07-10 14:04 | US ---
EXAMINATION TYPE: US carotid duplex BILAT DATE OF EXAM: 07/10/2019 COMPARISON: NONE CLINICAL HISTORY: Syncope with slurred speech. Patient states passing out yesterday, HTN controlled w [facility] meds EXAM MEASUREMENTS: RIGHT: Peak Systolic Velocity (PSV) cm/sec ----- Right CCA: 49.4 ----- Right ICA: 59.2 ----- Right ECA: 43.3 ICA/CCA ratio: 1.2 RIGHT: End Diastole cm/sec ----- Right CCA: 16.4 ----- Right ICA: 18.6 ----- Right ECA: 7.8 LEFT: Peak Systolic Velocity (PSV) cm/sec ----- Left CCA: 105.6 ----- Left ICA: 97.8 ----- Left ECA: 62.5 ICA/CCA ratio: 0.9 LEFT: End Diastole cm/sec ----- Left CCA: 34.4 ----- Left ICA: 31.8 ----- Left ECA: 11.9 VERTEBRALS (direction of flow): Right Vertebral: Antegrade Left Vertebral: Antegrade Rhythm: Normal Lazaro scale images show some minimal hyperplasia bilaterally without significant plaque at carotid bul b level. Velocity measurements and ratios in the visualized portions of both internal carotid arterie s is within normal limits. IMPRESSION: No hemodynamically significant stenosis is seen involving either internal carotid artery . Criteria for Assigning % of Stenosis / Diameter reduction (Estimation based on the indirect measurements of the internal carotid artery velocities (ICA PSV). 1. Normal (no stenosis)=ICA PSV < 125 cm/s: ratio < 2.0: ICA EDV<40 cm/s. 2. Less than 50% stenosis=ICA PSV < 125 cm/s: ratio < 2.0: ICA EDV<40 cm/s. 3. 50 to 69% stenosis=ICA PSV of 125 to 230 cm/s: ration 2.0 ? 4.0: ICA EDV 40-100 cm/s. 4. Greater than 70% stenosis to near occlusion= ICA PSV > 230 cm/s: ratio > 4.0: ICA EDV > 100 cm/s. 5. Near occlusion= ICA PSV velocities may be low or undetectable: variable ratio and ICA EDV. 6. Total occlusion=unable to detect flow.
[2019-07-10 14:43] LABS: Appearance,Urine Clear (Clear); Bilirubin,Urine Negative (Negative); Blood,Urine Negative (Negative); Color,Urine Yellow; Glucose,Urine (UA) Trace (Negative); Ketones,Urine Trace (Negative); Leukocyte Esterase,Urine Negative (Negative); Nitrite,Urine Negative (Negative); Protein,Urine Trace (Negative); Urobilinogen,Urine <2.0 mg/dL (<2.0)
--- NOTE | 2019-07-10 14:44 | P.CNNES ---
History of Present Illness Consult date: 07/10/19 Requesting physician: Mynor Yeboah Reason for Consult: Syncope/slurred speech Chief complaint: [place] faint/sick History of Present Illness: This is a 59 RH male who is an excellent historian. He suffers from chronic neck pain for which he took [place]. His opiate was recently switched to a long-acting one. He took it for 3 days, after which he developed rhinorrhea and a productive cough of green sputum. He was at work last Monday07/05/19 and his coworker saw that he looked rather pale. He also developed a pressure-like pain squeezing his entire head. He did not feel well over the weekend, so went to see his PCP who prescribed him Augmentin. He has a sulfa allergy but not a penicillin one, but he states his father did have a severe pencillin allergy from which he almost . He took one Augmentin tablet yesterday and developed uncontrollable chills, shaking, diaphoresis and shortness of breath. There was report that he passed out at the work van and that his speech was slurred. He did not have any antecedent visual, auditory, olfactory, gustatory or visceral aura, tonic-clonic activity, tongue biting, bowel/bladder incontinence or post-ictal confusion. No witnessed repetitive behavior suspicious for automatism. He came to the ER because of how poorly he felt, and continued to feel sick for 7 hours until 0130am today. He is still coughing up green sputum. He did not recall having any fevers. Neurologically, patient denies head or neck trauma, diplopia, amaurosis, facial numbness or droop, vertigo, dysphagia, aphasia, focal numbness/weakness or ataxia. He does feel better overall now. He has been seen by cardiology who feels this presentation is not cardiac in nature. CT head, carotid duplex and TTE have been done. Review of Systems I have performed a 14-point organ ROS with patient; pertinents are as per HPI. Past Medical History Past Medical History: Cancer, GERD/Reflux, Hyperlipidemia, Hypertension, Osteoarthritis (OA), Skin Disorder Additional Past Medical History / Comment(s): PSORIASIS. HAD REACTION TO SULFA AFTER DOG BITE, he developed Lazo-Juan Manuel syndrome. History of Any Multi-Drug Resistant Organisms: None Reported Past Surgical History: Appendectomy, Tonsillectomy Additional Past Surgical History / Comment(s): RT HAND I&D D/T DOG BITE. NOSE FX REPAIR. EGD 01/2015. skin cancer to thumb with rmoval Past Anesthesia/Blood Transfusion Reactions: No Reported Reaction Past Psychological History: Depression Additional Psychological History / Comment(s): IN PAST Smoking Status: Never smoker Past Alcohol Use History: Occasional Past Drug Use History: None Reported - Past Family History Father Family Medical History: Cancer, Coronary Artery Disease (CAD) Medications and Allergies Home Medications Medication Instructions Recorded Confirmed Type Metoprolol Tartrate [Lopressor] 50 mg PO BID #60 tab 01/30/15 07/09/19 Rx amLODIPine [Norvasc] 10 mg PO DAILY 02/06/15 07/09/19 History Amoxic-Pot Clav 875-125Mg 1 tab PO Q12HR 07/09/19 07/09/19 History [Augmentin 875-125] Cyclobenzaprine [Flexeril] 10 mg PO TID 07/09/19 07/09/19 History Hydrocodone Bitartrate [Hysingla 40 mg PO BID 07/09/19 07/09/19 History ER] Losartan Potassium 50 mg PO HS 07/09/19 07/09/19 History methylPREDNISolone [Medrol Dose See Taper PO DIRECTED 07/09/19 07/09/19 History Pack] Allergies Allergy/AdvReac Type Severity Reaction Status Date / Time Sulfa (Sulfonamide Allergy Severe Anaphylaxis Verified 07/09/19 20:06 Antibiotics) Physical Examination - Vital Signs Vital Signs: Vital Signs Temp Pulse Pulse Resp BP BP Pulse Ox 07/10/19 11:34 18 07/10/19 11:32 97.8 F 77 18 153/99 97 07/10/19 08:00 98 F 95 18 166/100 99 07/10/19 06:50 97.9 F 79 16 160/97 99 07/10/19 06:17 98.7 F 88 18 123/95 98 07/10/19 05:06 90 19 126/95 100 07/10/19 02:00 99 17 134/94 97 07/10/19 01:00 98 17 135/90 98 07/10/19 00:31 106 H 18 135/90 98 07/10/19 00:00 99 18 134/96 99 07/09/19 23:30 101 H 19 134/96 99 07/09/19 23:00 105 H 17 137/97 98 07/09/19 21:24 93 18 134/95 96 07/09/19 20:06 107 H 18 114/64 99 07/09/19 19:40 98.6 F 112 H 20 146/98 99 Intake and Output 07/09/19 07/10/19 07/10/19 22:59 06:59 14:59 Other: Weight 87.997 kg Gen NAD Pleasant and cooperative HEENT NCAT Sclera without icterus O/P clear Neck Supple No carotid bruit Cor RRR no m/r/g Lungs CTAB Abd Soft NTND +BS Ext Warm to touch No edema Neuro MS A+Ox4 Normal fluency Able to follow all commands and articulate a detailed medical history CN PERRL VFF no APD EOMI no nystagmus or GREGORY No facial asymmetry Masseter's symmetric Hearing intact to normal voice bilaterally Speech not dysarthric Equal elevation of palate Tongue midline Sym shrug and SCM bilaterally Motor Normal bulk/tone No pronator drift or tremors Strength 5/5 sym throughout Sens Intact to LT x4 No neglect Coord No dysmetria on FTN bilaterally DTRs 2+/4 sym throughout Toes downgoing bilaterally No clonus at achilles Gait Deferred NIHSS 0 Results - Laboratory Findings CBC and BMP: 07/10/19 08:49 07/10/19 08:49 Abnormal Lab Findings: Abnormal Labs 07/09/19 07/09/19 07/10/19 21:15 21:15 08:49 WBC 12.3 H Neutrophils # 10.3 H Lymphocytes # 0.7 L Basophils # 0.3 H BUN 22 H 21 H Glucose 128 H - Diagnostic Findings Additional findings: CT Head wo cont 07/09/19. Normal. Carotid duplex 07/10/19. No BICA stenosis. Antegrade flow in both vertebral arteries. TTE 07/10/19. Sinus rhythm. LV size and function normal EF 55-60%. Normal LA size. Mild MR and TR. I have reviewed neuroimages myself. Assessment and Plan Assessment: Constellation of symptoms including headache, slurred speech, shaking, diaphoresis, shortness of breath, rhinorrhea and productive cough. Agree with patient that he may have had an adverse reaction to his antibiotic and that he likely has been suffering from some type of acute respiratory infection. I do not suspect an acute primary neurological process such as TIA, seizure, migraine, etc. Plan: -Reviewed test results with patient in detail; all essentially unrevealing -Medical management per primary team -Do not recommend further neurological testing. Stable for discharge from my standpoint. Thank you for this consultation. Please call with new ?. Time with Patient: Greater than 30 (Time spent in direct patient care, greater than 50% of which was spent in [id number] counseling and coordination of care: 70 minutes)
[2019-07-10 20:28] VITALS: RESP 20
[2019-07-10] MEDS: FAMOTIDINE 20 MG/2 ML VIAL IV SCH (20:28)
[2019-07-10] MEDS: HEPARIN SODIUM,PORCINE 5,000 UNIT/ML 1 ML VIAL SQ SCH (20:28)
[2019-07-10] MEDS ORDERED: LOSARTAN 50 MG TAB PO SCH (21:00)
[2019-07-11] MEDS: DEXTROSE 5%-0.9% NACL 1,000 ML IV SCH (01:47)
[2019-07-11] MEDS: HYDROcodone/APAP 10-325MG 1 EACH TAB PO PRN ×2 (02:16→08:15)
[2019-07-11] MEDS: amLODIPine 10 MG TAB PO SCH (08:08)
[2019-07-11] MEDS: METOPROLOL TARTRATE 50 MG TAB PO SCH (08:08)
[2019-07-11] MEDS: HEPARIN SODIUM,PORCINE 5,000 UNIT/ML 1 ML VIAL SQ SCH (08:08)
[2019-07-11] MEDS: FAMOTIDINE 20 MG/2 ML VIAL IV SCH (08:08)
[2019-07-11 08:55] VITALS: BP 154/68; PULSE 86; TEMP 98.3
--- NOTE | 2019-07-11 12:12 | P.PN ---
Subjective Progress Note Date: 07/11/19 This is a pleasant 59-year-old gentleman with multiple medical issues. The patient states he has disc problems in his back for which she is treated at the pain clinic, he also has some nerve issues in his fingers and toes, also states he has several ALLERGIES to medications. He states he was told to have had a myocardial infarction in the past however he never underwent cardiac catheterization or intervention. Patient states that he has been dealing with an upper respiratory infection, he's been coughing up green sputum, and was initiated on Augmentin. Prior to this patient states he was also started on any medication at the pain clinic, he forgets the name. Patient was at work yesterday, states that he got extremely diaphoretic, developed chills and was shaking. Patient also states that he had a headache which initially started on Monday. He states that he walked out to his car to change his shirt because it was soaking wet, he knows that he needed to the car, but the next thing he recalls is waking up to one of his coworkers. Patient was then brought to the emergency room. On arrival to the emergency room, patient states he had some lower abdominal pain and continues to have chills. He denies having any chest discomfort. Patient does state that he felt short of breath, he's not sure if it was related to anxiety but he was unable to take a deep breath. Chest x-ray on admission was normal. CAT scan of the brain was negative. EKG shows normal sinus rhythm with no acute changes. Blood pressure ranges from 120 systolic to 160s systolic over 90, heart rate in the 70s, 99% on room air. White blood cell count 12.3, hemoglobin 15.3, beta count 310. D-dimer 0.3. Sodium 141, potassium 4.9, BUN 22, creatinine 0.8. Troponins are negative 2. 07/11/2019 Patient was seen and examined this morning, he's been up ambulating without any difficulty. Echocardiogram with Doppler study revealed a normal left ventricular systolic function. Blood pressure 140/80 with a heart rate in the 80s, 97% on room air. Objective - Vital Signs Vital signs: Vital Signs Temp 98.3 F 07/11/19 08:20 Pulse 86 07/11/19 08:20 Resp 20 09/19/19 08:20 BP 154/68 07/11/19 08:20 Pulse Ox 98 07/11/19 08:20 Intake & Output 07/10/19 07/11/19 07/11/19 18:59 06:59 18:59 Intake Total 120 590 240 Balance 120 590 240 Weight 85.4 kg Intake: Intake, IV Titration 370 Amount Dextrose 5%-0.9% NaCl 1, 370 000 ml @ 75 mls/hr IV . [id number] Rx#:[id number] Oral 120 220 240 Other: # Voids 1 - Exam PHYSICAL EXAMINATION: GENERAL: 59-year-old gentleman in no acute distress at the time of my examination HEENT: Head is atraumatic, normocephalic. Pupils equal, round. Sclera ani cteric. Conjunctiva are clear. Mucous membranes of the mouth are moist. Neck is supple. There is no elevated jugular venous pressure. No carotid bruit is heard. HEART EXAMINATION: Heart S1, S2 normal. No murmur or gallop heard. CHEST EXAMINATION: Lungs are clear to auscultation and precussion. No chest wall tenderness is noted on palpation or with deep breathing. ABDOMEN: Soft, mild lower abdominal tenderness . Bowel sounds are heard. No organomegaly noted. EXTREMITIES: 2+ peripheral pulses with no evidence of peripheral edema and no calf tenderness noted. NEUROLOGIC patient is awake, alert and oriented 3 . - Labs CBC & Chem 7: 07/10/19 08:49 07/10/19 08:49 Labs: Abnormal Lab Results - Last 24 Hours (Table) 07/10/19 07/10/19 Range/Units 08:49 14:24 BUN 21 H (9-20) mg/dL Urine Protein Trace H (Negative) Urine Glucose (UA) Trace H (Negative) Urine Ketones Trace H (Negative) Assessment and Plan Plan: Assessment and plan #1 symptoms of diaphoresis with associated chills and shaking, recently started on Augmentin for upper respiratory infection #2 episode of shortness of breath, inability to take a deep breath, no chest d iscomfort. Troponins negative 2. EKG shows normal sinus rhythm with no acute changes. #3 hypertension #4 chronic back problems, with chronic pain Plan Patient's presentation does not appear to be cardiac in nature. Echo revealed normal left ventricular systolic function. From our perspective the patient may be able to be discharged home today, we'll make him a follow-up appointment in the office post discharge. DNP note has been reviewed, I agree with a documented findings and plan of care. Patient was seen and examined.
--- NOTE | 2019-07-11 21:56 | P.DS ---
Providers Date of admission: 07/10/19 00:56 Attending physician: Dayo Luo Consults: 07/10/19 00:06 Consult Physician Routine Consulting Provider: [facility] Consult Reason/Comments: Chest Pain; Dyspnea Do you want consulting provider notified?: Yes 07/10/19 11:48 Consult Physician Urgent Consulting Provider: Que Neri Consult Reason/Comments: Syncope and. Slurred speech Do you want consulting provider notified?: Yes Primary care physician: Dayo Luo Hospital Course: Diagnoses: Most likely ALLERGIC reaction to Augmentin none specific symptoms like Syncope, Periods of slurred speech and headache. Mostly secondary to above. Resolved Mild abdominal pain and tenderness, could be related to constipation or recent vomiting, improving. 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 Patient most likely presents because of ALLERGIC reaction to Augmentin, after he had upper respiratory signs and symptoms and he wanted to his PCP who prescribed him Augmentin and prednisone and within 2 hours of taking his medication history to have an none specific symptoms of syncope, periods of slurred speech, headache, feeling pale sweating with shaking. He was at work and wanted to leave but he passed out in his van and has a friend help him out of the van so he came to the hospital where at that time he is having headache and slurred just being with light bothering him with a little short of breath. All his symptoms has resolved now and his back to his usual state. Patient has been evaluated by distribution systems serviceperson and the neurologist, both services recommended no further workup and cleared the patient for discharge. He still have some mild abdominal pain and tenderness, with no rebound tenderness or guarding. No nausea vomiting and he tolerated his breakfast this morning with no problems, he had regular bowel movements. I offered to do workup for the patient like CAT scan of the abdomen bu he declined, he also declined other alternative like abdominal x-ray. Patient's wants to be discharged today and he will follow-up with his PCP Dr. Luo/Chasidy whom he sees in the office especially his abdominal pain is improving as per patient. Risks benefits and alternatives were explained to the patient. Patient was instructed to come to emergency room and call 911 if the patient does not resolve or getting worse and he verbalized understanding and acceptance. Based upon my evaluation patient has capacity to make medical decision and he is interested in follow-up with his PCP. No other complaints by the patient and he thinks is back to baseline Problems and management plan were discussed with the patient and he verbalized understanding and acceptance Patient was found stable and can be discharged home however he needs follow-up as an outpatient. an appointment made for him with Chasidy with office on this coming monday07/15/19, he agrees with appointment and its timing and states he will f/u. pt is informed to come to ED (call 911) if abd pain get worse and he agrees pt agree with cardiology appointment as well pt is told he has augmentin allergy and to avoid it and other penicillin in the future Gen: patient is a AAOx3, no distress CVS: S1-S2, RRR, no murmur Lungs: B/L CTA, no wheezing Abdomen: soft, no distention, positive bowel sounds, mild periumbilical tenderness, no rebound tenderness or guarding Extremity: no leg edema or induration Time spent more than 35 minutes Patient Condition at Discharge: Stable Plan - Discharge Summary New Discharge Prescriptions: Continue Metoprolol Tartrate [Lopressor] 50 mg PO BID #60 tab amLODIPine [Norvasc] 10 mg PO DAILY Hydrocodone Bitartrate [Hysingla ER] 40 mg PO BID Losartan Potassium 50 mg PO HS Cyclobenzaprine [Flexeril] 10 mg PO TID Discontinued methylPREDNISolone [Medrol Dose Pack] See Taper PO DIRECTED Amoxic-Pot Clav 875-125Mg [Augmentin 875-125] 1 tab PO Q12HR Discharge Medication List Metoprolol Tartrate [Lopressor] 50 mg PO BID #60 tab 01/30/15 [Rx] amLODIPine [Norvasc] 10 mg PO DAILY 02/06/15 [History] Cyclobenzaprine [Flexeril] 10 mg PO TID 07/09/19 [History] Hydrocodone Bitartrate [Hysingla ER] 40 mg PO BID 07/09/19 [History] Losartan Potassium 50 mg PO HS 07/09/19 [History] Follow up Appointment(s)/Referral(s): Dayo Luo MD [Primary Care Provider] - 07/15/19 1:00 pm (Monday) Anahi Ge MD [STAFF PHYSICIAN] - 07/24/19 8:45 am (Monday) Patient Instructions/Handouts: Syncope (DC) Activity/Diet/Wound Care/Special Instructions: Discharge instructions: -Try to avoid Augmentin as you might be ALLERGIC to it Discharge Disposition: HOME SELF-CARE
== END 2019-07-11 10:34 | disposition home or self-care (01) ==
LOC: EC 19:07 → 1SOBS 07-10 00:56 → 3SCARD 07-10 05:34
PROVIDERS: ADMIT Family Medicine; ATTEND Family Medicine
DX: R55 Syncope and collapse (principal); R47.81 Slurred speech; R51 Headache; R06.02 Shortness of breath; R10.30 Lower abdominal pain, unspecified; R05 Cough; R68.83 Chills (without fever); R11.10 Vomiting, unspecified; R14.0 Abdominal distension (gaseous); D72.829 Elevated white blood cell count, unspecified; E86.0 Dehydration; K59.00 Constipation, unspecified; E78.5 Hyperlipidemia, unspecified; I10 Essential (primary) hypertension; K21.9 Gastro-esophageal reflux disease without esophagitis; L40.9 Psoriasis, unspecified; M19.91 Primary osteoarthritis, unspecified site; G89.29 Other chronic pain; M54.2 Cervicalgia; E66.9 Obesity, unspecified; Z68.27 Body mass index [BMI] 27.0-27.9, adult; R29.700 NIHSS score 0; Z88.0 Allergy status to penicillin; Z88.2 Allergy status to sulfonamides; Z79.891 Long term (current) use of opiate analgesic; Z79.899 Other long term (current) drug therapy; Z87.898 Personal history of other specified conditions; Z85.828 Personal history of other malignant neoplasm of skin; Z82.49 Family history of ischemic heart disease and other diseases of the circulatory system; Z80.9 Family history of malignant neoplasm, unspecified
CPT/HCPCS: 36415; 70450; 71046; 80048; 80053; 81003; 82150; 83690; 84484; 85025; 85379; 85610; 85730; 87502; 93005; 93306; 93880; 94760; 96372; 96374; 96375; 96376; 99285

== ENCOUNTER → 2019-07-26 | Outpatient (CLI) | payer BC ==
[2019-07-26 13:41] LABS: Basophils # (A) 0.1 k/uL (0-0.2); Basophils % (A) 1 %; Eosinophils # (A) 0.4 k/uL (0-0.7); Eosinophils % (A) 4 %; HCT 44.5 % (39.0-53.0); HGB 14.6 gm/dL (13.0-17.5); Lymphocytes # (A) 3.1 k/uL (1.0-4.8); Lymphocytes % (A) 30 %; MCH 30.3 pg (25.0-35.0); MCHC 32.9 g/dL (31.0-37.0); MCV 92.2 fL (80.0-100.0); Mean Platelet Volume 6.2; Monocytes # (A) 0.6 k/uL (0-1.0); Monocytes % (A) 6 %; Neutrophils # (A) 6.1 k/uL (1.3-7.7); Neutrophils % (A) 58 %; Platelet Count 356 k/uL (150-450); RBC 4.82 m/uL (4.30-5.90); RDW 12.4 % (11.5-15.5); WBC 10.4 k/uL (3.8-10.6)
[2019-07-26 18:44] LABS: African American GFR (CKD) 107.2 (60.0-200.0); Albumin 4.5 g/dL (3.80-4.90); Albumin/Globulin Ratio 2.25 (1.60-3.17); Anion Gap 9.2 mmol/L (4.00-12.00); BUN/Creat Ratio 17.78 Ratio (12.00-20.00); Calcium 9.2 mg/dL (8.7-10.3); Carbon Dioxide 25.8 mmol/L (21.6-31.8); Potassium 4.5 mmol/L (3.5-5.5); Total Bilirubin 0.3 mg/dL (0.3-1.2); Total Protein 6.5 g/dL (6.2-8.2)
== END | disposition home or self-care (01) ==
LOC: LABWHC1 13:03
PROVIDERS: ATTEND Psychiatry & Neurology Pain Medicine
DX: Z51.81 Encounter for therapeutic drug level monitoring (principal)
CPT/HCPCS: 36415; 80053; 85025

== ENCOUNTER → 2019-11-16 | Outpatient (CLI) | payer BC ==
--- NOTE | 2019-11-18 13:58 | PE ---
Nuclear medicine PET/CT HISTORY: Squamous cell carcinoma nasopharynx initial, renal lesion Small [id number] imaging obtained through the head and neck. Patient received 11.7 mCi F-18 FDG in travenously in delayed scanning performed through the skull base and through the body into the mid th ighs region. No previous abnormal exams are available for correlation of the patient's renal lesion Head and neck: There is no suspicious hypermetabolic uptake. No evident adenopathy along the cervical or supraclavicular regions. Mild asymmetry in the uptake along the tonsillar pillars left greater th an right. CHEST: No evident mass. No pleural or pericardial effusion. No suspicious uptake. No mediastinal, axi llary, or hilar adenopathy. Coronary calcification is present. ABDOMEN: No evident liver mass, adrenal mass, retroperitoneal adenopathy or suspicious hypermetabolic uptake. No suspicious uptake associated with the kidneys, uptake could be obscured by underlying exc retion of the radiopharmaceutical. There is no ascites. Osseous structures are within normal limits. IMPRESSION: No suspicious hypermetabolic uptake
== END | disposition home or self-care (01) ==
LOC: RADPETMAIN 12:34
PROVIDERS: ATTEND Psychiatry & Neurology Neurology
DX: N28.9 Disorder of kidney and ureter, unspecified (principal); C44.92 Squamous cell carcinoma of skin, unspecified; C11.8 Malignant neoplasm of overlapping sites of nasopharynx
CPT/HCPCS: 78815; A9552

== ENCOUNTER → 2020-02-06 | Outpatient (CLI) | payer BC ==
--- NOTE | 2020-02-06 09:30 | CT ---
EXAMINATION TYPE: CT brain w con DATE OF EXAM: 02/06/2020 COMPARISON: 07/09/2019 HISTORY: Dizziness and giddiness x [address] DLP: 1104.4 mGycm Automated exposure control for dose reduction was used. CONTRAST: CT scan of the head is performed with IV Contrast, patient injected with 100 mL of Isovue M300. FINDINGS: There is no abnormal enhancing mass or midline shift identified. The ventricles and sulci are within normal limits in size. The globes are intact and the visualized sinuses are clear. IMPRESSION: No evidence for enhancing lesion.
[2020-02-06 09:43] LABS: ALT 29 U/L (4-49); AST 34 U/L (17-59); African American GFR (CKD) >90 (>60 ml/min/1.73 sqM); Albumin 3.9 g/dL (3.5-5.0); Alkaline Phosphatase 86 U/L (38-126); Anion Gap 6 mmol/L; Blood Urea Nitrogen 11 mg/dL (9-20); Calcium 8.9 mg/dL (8.4-10.2); Carbon Dioxide 23 mmol/L (22-30); Chloride 106 mmol/L (98-107); Cholesterol 180 mg/dL (<200); Glucose 93 mg/dL (74-99); HDL Cholesterol 54 mg/dL (40-60); LDL Cholesterol,Calculated 79 mg/dL (0-99); Non-African American GFR(CKD) >90 (>60 ml/min/1.73 sqM); Potassium 4.7 mmol/L (3.5-5.1); Sodium 135 mmol/L (137-145); Total Bilirubin 0.3 mg/dL (0.2-1.3); Total Protein 6.6 g/dL (6.3-8.2); Triglycerides 233 mg/dL (<150)
[2020-02-06 10:14] LABS: Basophils # (A) 0.1 k/uL (0-0.2); Basophils % (A) 1 %; Eosinophils # (A) 0.3 k/uL (0-0.7); Eosinophils % (A) 5 %; HCT 41.7 % (39.0-53.0); Lymphocytes # (A) 3.2 k/uL (1.0-4.8); Lymphocytes % (A) 46 %; MCH 29.7 pg (25.0-35.0); MCHC 33.6 g/dL (31.0-37.0); MCV 88.2 fL (80.0-100.0); Mean Platelet Volume 7.7; Monocytes # (A) 0.5 k/uL (0-1.0); Monocytes % (A) 7 %; Neutrophils # (A) 2.6 k/uL (1.3-7.7); Neutrophils % (A) 38 %; Platelet Count 293 k/uL (150-450); RBC 4.73 m/uL (4.30-5.90); RDW 12.5 % (11.5-15.5); WBC 6.9 k/uL (3.8-10.6)
== END | disposition home or self-care (01) ==
LOC: RADCTMAIN 08:39
PROVIDERS: ATTEND Family Medicine
DX: R42 Dizziness and giddiness (principal); E78.5 Hyperlipidemia, unspecified; Z12.5 Encounter for screening for malignant neoplasm of prostate
CPT/HCPCS: 84153; 80061; 80053; 85025; 70460; 36415; Q9967

== ENCOUNTER 2020-06-09 15:02 | Inpatient (IN) | payer BC ==
[2020-06-09] MEDS ORDERED: IPRATROPIUM-ALBUTEROL 3 ML NEB INHALATION STA (15:32)
[2020-06-09] MEDS ORDERED: HYDROcodone/APAP 10-325MG 1 EACH TAB PO ONE (15:33)
--- NOTE | 2020-06-09 15:48 | ED ---
General Adult HPI - General Chief complaint: Shortness of Breath Stated complaint: cough/SOB Time Seen by Provider: 06/09/20 15:13 Source: patient, RN notes reviewed Mode of arrival: wheelchair Limitations: no limitations - History of Present Illness Initial comments: 5-year-old male presents emergency department tingling or shortness breath. Patient states symptoms started this morning. Patient states that he felt some pain in his right lung. Patient states that he's been coughing very hard states he coughed up some blood-tinged material. Patient denies any fevers or chills. Patient denies any sick contacts no prior lung disease. Patient denies any current headache or dizziness no back pain. Patient states that he was treated for cancer of his left thumb in the past no history DVT or PE. - Related Data Home Medications Medication Instructions Recorded Confirmed amLODIPine [Norvasc] 10 mg PO DAILY 02/06/15 07/09/19 Cyclobenzaprine [Flexeril] 10 mg PO TID 07/09/19 07/09/19 Hydrocodone Bitartrate [[place] 40 mg PO BID 07/09/19 07/09/19 ER] Losartan Potassium 50 mg PO HS 07/09/19 07/09/19 Previous Rx's Medication Instructions Recorded Metoprolol Tartrate [Lopressor] 50 mg PO BID #60 tab 01/30/15 Allergies Allergy/AdvReac Type Severity Reaction Status Date / Time Sulfa (Sulfonamide Allergy Severe Anaphylaxis Verified 06/09/20 15:09 Antibiotics) amoxicillin [From Augmentin] AdvReac Severe Unknown Verified 06/09/20 15:09 clavulanic acid AdvReac Severe Unknown Verified 06/09/20 15:09 [From Augmentin] Review of Systems ROS Statement: Those systems with pertinent positive or pertinent negative responses have been documented in the HPI. ROS Other: All systems not noted in ROS Statement are negative. Past Medical History Past Medical History: Cancer, GERD/Reflux, Hyperlipidemia, Hypertension, Osteoarthritis (OA), Skin Disorder Additional Past Medical History / Comment(s): PSORIASIS. HAD REACTION TO SULFA AFTER DOG BITE, he developed Lazo-Juan Manuel syndrome. History of Any Multi-Drug Resistant Organisms: None Reported Past Surgical History: Appendectomy, Tonsillectomy Additional Past Surgical History / Comment(s): RT HAND I&D D/T DOG BITE. NOSE FX REPAIR. EGD 01/2015. skin cancer to thumb with rmoval Past Anesthesia/Blood Transfusion Reactions: No Reported Reaction Past Psychological History: Depression Smoking Status: Never smoker Past Alcohol Use History: Occasional Past Drug Use History: None Reported - Past Family History Father Family Medical History: Cancer, Coronary Artery Disease (CAD) General Exam Limitations: no limitations General appearance: alert, in no apparent distress Head exam: Present: atraumatic, normocephalic, normal inspection Eye exam: Present: normal appearance, PERRL, EOMI. Absent: scleral icterus, conjunctival injection, periorbital swelling ENT exam: Present: normal exam, normal oropharynx, mucous membranes moist Neck exam: Present: normal inspection, full ROM. Absent: tenderness, meningis mus, lymphadenopathy Respiratory exam: Present: wheezes, rhonchi. Absent: normal lung sounds bilaterally, respiratory distress, rales, stridor Cardiovascular Exam: Present: normal rhythm, tachycardia (Heart rate was 96 on exam), normal heart sounds. Absent: systolic murmur, diastolic murmur, rubs, gallop, clicks GI/Abdominal exam: Present: soft, normal bowel sounds. Absent: distended, tenderness, guarding, rebound, rigid Neurological exam: Present: alert, oriented X3 Skin exam: Present: warm, dry, intact, normal color. Absent: rash Course Vital Signs 06/09/20 06/09/20 06/09/20 15:05 15:35 15:44 Temperature 98.2 F Pulse Rate 120 H 86 79 Respiratory 22 16 Rate Blood Pressure 158/115 O2 Sat by Pulse 96 Oximetry 06/09/20 06/09/20 06/09/20 15:55 16:26 16:45 Temperature Pulse Rate 82 87 85 Respiratory 16 18 18 Rate Blood Pressure 133/102 154/105 O2 Sat by Pulse 98 95 Oximetry EKG Findings - EKG Comments: EKG Findings:: EKG performed at 15:42 normal sinus rhythm rate of 78 VT 166/102 QT/ QTC 384/434 Medical Decision Making - Medical Decision Making Patient continues to have wheezing x-ray shows no definite infiltrate. Labs show evidence of mild leukocytosis and lactic acidosis. Patient was started on antibiotics for tracheobronchitis will be admitted for further treatment evaluation. - Lab Data Result diagrams: 06/09/20 15:34 06/09/20 15:34 Lab Results 06/09/20 06/09/20 06/09/20 Range/Units 15:34 15:34 15:34 WBC 11.2 H (3.8-10.6) k/uL RBC 5.41 (4.30-5.90) m/uL Hgb 16.1 (13.0-17.5) gm/dL Hct 49.3 (39.0-53.0) % MCV 91.2 (80.0-100.0) fL MCH 29.8 (25.0-35.0) pg MCHC 32.7 (31.0-37.0) g/dL RDW 12.6 (11.5-15.5) % Plt Count 366 (150-450) k/uL Neutrophils % 68 % Lymphocytes % 23 % Monocytes % 4 % Eosinophils % 3 % Basophils % 1 % Neutrophils # 7.5 (1.3-7.7) k/uL Lymphocytes # 2.5 (1.0-4.8) k/uL Monocytes # 0.5 (0-1.0) k/uL Eosinophils # 0.3 (0-0.7) k/uL Basophils # 0.1 (0-0.2) k/uL PT 9.4 (9.0-12.0) sec INR 0.9 (<1.2) APTT 21.1 L (22.0-30.0) sec D-Dimer 0.37 (<0.60) mg/L FEU Sodium 138 (137-145) mmol/L Potassium 4.0 (3.5-5.1) mmol/L Chloride 103 (98-107) mmol/L Carbon Dioxide 23 (22-30) mmol/L Anion Gap 12 mmol/L BUN 15 (9-20) mg/dL Creatinine 0.82 (0.66-1.25) mg/dL Est GFR (CKD-EPI)AfAm >90 (>60 ml/min/1.73 sqM) Est GFR (CKD-EPI)NonAf >90 (>60 ml/min/1.73 sqM) Glucose 102 H (74-99) mg/dL Plasma Lactic Acid Darrin (0.7-2.0) mmol/L Calcium 10.2 (8.4-10.2) mg/dL Magnesium 1.9 (1.6-2.3) mg/dL Total Bilirubin 0.6 (0.2-1.3) mg/dL AST 31 (17-59) U/L ALT 32 (4-49) U/L Alkaline Phosphatase 93 (38-126) U/L Troponin I (0.000-0.034) ng/mL NT-Pro-B Natriuret Pep pg/mL Total Protein 8.0 (6.3-8.2) g/dL Albumin 5.1 H (3.5-5.0) g/dL 06/09/20 06/09/20 06/09/20 Range/Units 15:34 15:34 15:34 WBC (3.8-10.6) k/uL RBC (4.30-5.90) m/uL Hgb (13.0-17.5) gm/dL Hct (39.0-53.0) % MCV (80.0-100.0) fL MCH (25.0-35.0) pg MCHC (31.0-37.0) g/dL RDW (11.5-15.5) % Plt Count (150-450) k/uL Neutrophils % % Lymphocytes % % Monocytes % % Eosinophils % % Basophils % % Neutrophils # (1.3-7.7) k/uL Lymphocytes # (1.0-4.8) k/uL Monocytes # (0-1.0) k/uL Eosinophils # (0-0.7) k/uL Basophils # (0-0.2) k/uL PT (9.0-12.0) sec INR (<1.2) APTT (22.0-30.0) sec D-Dimer (<0.60) mg/L FEU Sodium (137-145) mmol/L Potassium (3.5-5.1) mmol/L Chloride (98-107) mmol/L Carbon Dioxide (22-30) mmol/L Anion Gap mmol/L BUN (9-20) mg/dL Creatinine (0.66-1.25) mg/dL Est GFR (CKD-EPI)AfAm (>60 ml/min/1.73 sqM) Est GFR (CKD-EPI)NonAf (>60 ml/min/1.73 sqM) Glucose (74-99) mg/dL Plasma Lactic Acid Darrin 3.1 H* (0.7-2.0) mmol/L Calcium (8.4-10.2) mg/dL Magnesium (1.6-2.3) mg/dL Total Bilirubin (0.2-1.3) mg/dL AST (17-59) U/L ALT (4-49) U/L Alkaline Phosphatase (38-126) U/L Troponin I <0.012 (0.000-0.034) ng/mL NT-Pro-B Natriuret Pep 67 pg/mL Total Protein (6.3-8.2) g/dL Albumin (3.5-5.0) g/dL Disposition Clinical Impression: Tracheobronchitis, Bronchospasm, Hemoptysis Disposition: ADMITTED IP TO THIS HOSP Condition: Fair Referrals: Dayo Luo MD [Primary Care Provider] - 1-2 days
[2020-06-09 15:58] LABS: Basophils # (A) 0.1 k/uL (0-0.2); Basophils % (A) 1 %; Eosinophils # (A) 0.3 k/uL (0-0.7); Eosinophils % (A) 3 %; HCT 49.3 % (39.0-53.0); HGB 16.1 gm/dL (13.0-17.5); Lymphocytes # (A) 2.5 k/uL (1.0-4.8); Lymphocytes % (A) 23 %; MCH 29.8 pg (25.0-35.0); MCHC 32.7 g/dL (31.0-37.0); MCV 91.2 fL (80.0-100.0); Mean Platelet Volume 7.9; Monocytes # (A) 0.5 k/uL (0-1.0); Monocytes % (A) 4 %; Neutrophils # (A) 7.5 k/uL (1.3-7.7); Neutrophils % (A) 68 %; Platelet Count 366 k/uL (150-450); RBC 5.41 m/uL (4.30-5.90); RDW 12.6 % (11.5-15.5); WBC 11.2 k/uL (3.8-10.6)
[2020-06-09 16:06] LABS: ALT 32 U/L (4-49); AST 31 U/L (17-59); African American GFR (CKD) >90 (>60 ml/min/1.73 sqM); Albumin 5.1 g/dL (3.5-5.0); Alkaline Phosphatase 93 U/L (38-126); Anion Gap 12 mmol/L; Blood Urea Nitrogen 15 mg/dL (9-20); Calcium 10.2 mg/dL (8.4-10.2); Carbon Dioxide 23 mmol/L (22-30); Chloride 103 mmol/L (98-107); Glucose 102 mg/dL (74-99); Magnesium 1.9 mg/dL (1.6-2.3); Non-African American GFR(CKD) >90 (>60 ml/min/1.73 sqM); Sodium 138 mmol/L (137-145); Total Bilirubin 0.6 mg/dL (0.2-1.3)
--- NOTE | 2020-06-09 16:13 | XR ---
EXAMINATION TYPE: XR chest 2V DATE OF EXAM: 06/09/2020 CLINICAL HISTORY: Difficulty breathing. Shortness of breath and cough for one day. TECHNIQUE: Frontal and lateral views of the chest are obtained. COMPARISON: 07/09/2019 chest radiograph FINDINGS: The cardiomediastinal silhouette is within normal limits for size. Pulmonary vasculature i s normal. There is no focal air space opacity, pleural effusion, or pneumothorax seen. The osseous st ructures are intact. IMPRESSION: No acute cardiopulmonary process.
[2020-06-09 16:17] LABS: D-Dimer 0.37 mg/L FEU (<0.60); INR 0.9 (<1.2); Prothrombin Time 9.4 sec (9.0-12.0)
[2020-06-09 16:25] LABS: Partial Thromboplastin Time 21.1 sec (22.0-30.0)
[2020-06-09] MEDS ORDERED: methylPREDNISolone SOD SUCCI 125 MG/2 ML VIAL IV STA (17:00)
[2020-06-09] MEDS ORDERED: cefTRIAXone IN SWFI 1,000 MG/10 ML SYRINGE IVP STA (17:00)
[2020-06-09] MEDS ORDERED: AZITHROMYCIN 500 MG in SODIUM CHLORIDE 0.9% 250 ML IVPB STA (17:03)
[2020-06-09] MEDS ORDERED: LABETALOL 5 MG/ML VIAL MDV IVP STA (18:10)
[2020-06-09] MEDS: IPRATROPIUM-ALBUTEROL 3 ML NEB INHALATION SCH (19:03)
[2020-06-09] MEDS: HYDROcodone/APAP 10-325MG 1 EACH TAB PO PRN (22:09)
[2020-06-09] MEDS: CYCLOBENZAPRINE 10 MG TAB PO PRN (22:10)
[2020-06-09] MEDS ORDERED: ACETAMINOPHEN TAB 325 MG TAB PO PRN (23:00)
[2020-06-10] MEDS: IPRATROPIUM-ALBUTEROL 3 ML NEB INHALATION PRN (01:29)
[2020-06-10] MEDS: HYDROcodone/APAP 10-325MG 1 EACH TAB PO PRN ×3 (05:16→18:20)
[2020-06-10 06:00] LABS: Basophils % (A) 0 %; Eosinophils % (A) 0 %; HCT 46.4 % (39.0-53.0); HGB 14.9 gm/dL (13.0-17.5); Lymphocytes % (A) 9 %; MCH 29.6 pg (25.0-35.0); MCHC 32.1 g/dL (31.0-37.0); Mean Platelet Volume 7.9; Monocytes # (A) 0.2 k/uL (0-1.0); Monocytes % (A) 2 %; Neutrophils # (A) 10.9 k/uL (1.3-7.7); Neutrophils % (A) 89 %; Platelet Count 320 k/uL (150-450); RBC 5.04 m/uL (4.30-5.90); RDW 12.6 % (11.5-15.5); WBC 12.2 k/uL (3.8-10.6)
[2020-06-10] MEDS: IPRATROPIUM-ALBUTEROL 3 ML NEB INHALATION SCH ×4 (08:15→19:43)
[2020-06-10] MEDS: METOPROLOL TARTRATE 50 MG TAB PO SCH ×2 (09:11→22:07)
[2020-06-10] MEDS: amLODIPine 10 MG TAB PO SCH (09:12)
--- NOTE | 2020-06-10 10:59 | P.HPIM ---
History of Present Illness This is a pleasant 59 years old male with past medical history of hypertension, hyperlipidemia, GERD, osteoarthritis, psoriasis, depression. Presents because of dyspnea on coughing. Yesterday patient started having shortness of breath and he was covering green phlegm and while he was riding he was severe bouts of coughing where he noticed blood in his phlegm. Associated with chest tightness and pain anteriorly, felt like mild increased by deep coughing. Patient has audible wheezing when talking, yesterday he said that given he was worse but now is much better after using a bronchodilator. He said that breathing treatment and follow-up and he feels much better now. He denies leg pain or swelling. No dizziness. Patient denies sick contacts or recent travel. Patient is been tachycardic with heart rate 120-128 this morning, however his heart rate was in the ED yesterday. Breathing rate is 16, saturating 93% on room air. Labs showing leukocytosis of 11.2 on 12.2, rest of CBC is unremarkable, d-dimer is negative as 0.37, BMP is unremarkable, elevated lactic acid 3.1, came back to normal to 1.6. Liver enzymes were not elevated. Troponins negative less than 0.012, proBNP 67. In the emergency room patient was started on Zithromax and ceftriaxone and he got 1 dose of Solu-Medrol 125 mg Review of Systems CONSTITUTIONAL: No fever, no malaise, no fatigue. HEENT: No recent visual problems or hearing problems. Denied any sore throat. CARDIOVASCULAR: No orthopnea, PND, no palpitations, no syncope. PULMONARY: No shortness of breath, no cough, no hemoptysis. GASTROINTESTINAL: No diarrhea, no nausea, no vomiting, no abdominal pain. Normoactive bowel sounds. NEUROLOGICAL: No headaches, no weakness, no numbness. HEMATOLOGICAL: Denies any bleeding or petechiae. GENITOURINARY: Denies any burning micturition, frequency, or urgency. MUSCULOSKELETAL/RHEUMATOLOGICAL: Denies any joint pain, swelling, or any muscle pain. ENDOCRINE: Denies any polyuria or polydipsia. Past Medical History Past Medical History: Cancer, GERD/Reflux, Hyperlipidemia, Hypertension, Osteoarthritis (OA), Skin Disorder Additional Past Medical History / Comment(s): PSORIASIS. HAD REACTION TO SULFA AFTER DOG BITE, he developed Lazo-Juan Manuel syndrome. History of Any Multi-Drug Resistant Organisms: None Reported Past Surgical History: Appendectomy, Tonsillectomy Additional Past Surgical History / Comment(s): RT HAND I&D D/T DOG BITE. NOSE FX REPAIR. EGD 01/2015. skin cancer to left thumb with removal. Past Anesthesia/Blood Transfusion Reactions: No Reported Reaction Past Psychological History: Depression Additional Psychological History / Comment(s): IN PAST, situational Smoking Status: Never smoker Past Alcohol Use History: Occasional Past Drug Use History: None Reported - Past Family History Father Family Medical History: Cancer, Coronary Artery Disease (CAD) Medications and Allergies Home Medications Medication Instructions Recorded Confirmed Type Cyclobenzaprine [Flexeril] 10 mg PO TID PRN 07/09/19 06/09/20 History Acetaminophen [Tylenol] 500 mg PO BID PRN 06/09/20 06/09/20 History Hydrocodone/Acetaminophen [[place] 1 tab PO QID PRN 06/09/20 06/09/20 History 10-325] Metoprolol Tartrate [Lopressor] 100 mg PO BID 06/09/20 06/09/20 History amLODIPine [Norvasc] 10 mg PO DAILY 06/09/20 06/09/20 History Allergies Allergy/AdvReac Type Severity Reaction Status Date / Time Sulfa (Sulfonamide Allergy Severe Anaphylaxis Verified 06/09/20 17:22 Antibiotics) amoxicillin [From Augmentin] AdvReac Severe Unknown Verified 06/09/20 17:22 clavulanic acid AdvReac Severe Unknown Verified 06/09/20 17:22 [From Augmentin] Physical Exam Vitals: Vital Signs Temp Pulse Pulse Resp BP BP Pulse Ox 06/10/20 09:14 97.9 F 120 H 16 117/74 93 L 06/10/20 08:29 124 H 06/10/20 08:15 128 H 06/10/20 03:05 97.9 F 100 18 115/66 95 06/10/20 01:53 84 06/10/20 01:29 96 06/09/20 21:07 98.1 F 86 17 151/96 95 06/09/20 19:40 86 149/95 96 06/09/20 19:35 83 144/94 95 06/09/20 19:30 89 137/94 94 L 06/09/20 19:25 87 149/110 94 L 06/09/20 19:20 83 140/97 96 06/09/20 19:15 82 144/99 97 06/09/20 19:13 81 16 06/09/20 19:10 83 142/100 99 06/09/20 19:05 81 128/100 99 06/09/20 19:03 81 18 06/09/20 19:00 87 12 144/100 95 06/09/20 18:55 82 16 137/100 95 06/09/20 18:50 82 16 140/102 94 L 06/09/20 18:45 89 18 147/104 98 06/09/20 18:40 84 18 152/100 95 06/09/20 18:35 86 17 154/104 95 06/09/20 18:30 85 21 155/112 95 06/09/20 18:25 87 18 06/09/20 18:20 85 16 155/112 98 06/09/20 17:55 82 18 06/09/20 17:50 79 16 157/108 95 06/09/20 17:30 81 19 161/111 94 L 06/09/20 17:00 93 18 154/105 95 06/09/20 16:45 85 18 154/105 95 06/09/20 16:30 85 16 133/102 96 06/09/20 16:26 87 18 133/102 98 06/09/20 16:00 81 16 93 L 06/09/20 15:55 82 16 06/09/20 15:47 78 18 99 06/09/20 15:44 79 16 06/09/20 15:35 86 06/09/20 15:05 98.2 F 120 H 22 158/115 96 Intake and Output 06/09/20 06/10/20 06/10/20 22:59 06:59 14:59 Other: Voiding Method Toilet Toilet # Voids 1 1 Weight 95.254 kg GENERAL: The patient is alert and oriented x3, not in any acute distress. Well developed, well nourished. HEENT: Pupils are round and equally reacting to light. EOMI. No scleral icterus. No conjunctival pallor. Normocephalic, atraumatic. No pharyngeal erythema. No thyromegaly. CARDIOVASCULAR: S1 and S2 present. No murmurs, rubs, or gallops. PULMONARY: Chest is clear to auscultation, no wheezing or crackles. ABDOMEN: Soft, nontender, nondistended, normoactive bowel sounds. No palpable organomegaly. MUSCULOSKELETAL: No joint swelling or deformity. EXTREMITIES: No cyanosis, clubbing, or pedal edema. NEUROLOGICAL: Gross neurological examination did not reveal any focal deficits. SKIN: No rashes. No petechiae Results CBC & Chem 7: 06/10/20 05:25 06/09/20 15:34 Labs: Abnormal Lab Results - Last 24 Hours (Table) 06/09/20 06/09/20 06/09/20 Range/Units 15:34 15:34 15:34 WBC 11.2 H (3.8-10.6) k/uL Neutrophils # (1.3-7.7) k/uL APTT 21.1 L (22.0-30.0) sec Glucose 102 H (74-99) mg/dL Plasma Lactic Acid Darrin (0.7-2.0) mmol/L Albumin 5.1 H (3.5-5.0) g/dL 06/09/20 06/10/20 Range/Units 15:34 05:25 WBC 12.2 H (3.8-10.6) k/uL Neutrophils # 10.9 H (1.3-7.7) k/uL APTT (22.0-30.0) sec Glucose (74-99) mg/dL Plasma Lactic Acid Darrin 3.1 H* (0.7-2.0) mmol/L Albumin (3.5-5.0) g/dL Thrombosis Risk Factor Assmnt - Choose All That Apply Any of the Below Risk Factors Present?: Yes Each Factor Represents 1 point: Age 41-60 years, Obesity (BMI >25) Other Risk Factors: No Other congenital or acquired thrombophilia - If yes, enter type in comment: No Thrombosis Risk Factor Assessment Total Risk Factor Score: 2 Thrombosis Risk Factor Assessment Level: Low Risk Assessment and Plan Assessment: acute tracheobronchitis, with one episode of blood in the phlegm. Chest x-ray didn't show evidence of consultation or infiltrate. Covid test is pending Elevated lactic acid, came back to normal Hypertension Hyperlipidemia Osteoarthritis Psoriasis History of depression, not an active issue Plan: This is a pleasant 59 years old male who presents with acute tracheobronchitis. Continue with ceftriaxone, Zithromax, Solu-Medrol. Pulmonary consult, cough medicine. Labs and medication were reviewed.. Continue same treatment. Continue with symptomatic treatment. Resume home medication. Monitor lytes and vitals. DVT and GI prophylaxis. Further recommendations of the clinical course of the patient DVT prophylaxis: Subcutaneous heparin GI Prophylaxis: Pepcid
[2020-06-10] MEDS ORDERED: guaiFENesin-DM 100-10MG/5ML 10 ML CUP PO PRN (11:00)
[2020-06-10] MEDS: methylPREDNISolone SOD SUCCI 40 MG/ML 1 ML VIAL IV SCH ×3 (12:06→23:56)
[2020-06-10] MEDS: AZITHROMYCIN 500 MG in SODIUM CHLORIDE 0.9% 250 ML IVPB SCH (18:11)
[2020-06-10] MEDS: CYCLOBENZAPRINE 10 MG TAB PO PRN (18:20)
[2020-06-10] MEDS: HEPARIN SODIUM,PORCINE 5,000 UNIT/ML 1 ML VIAL SQ SCH (21:57)
[2020-06-10] MEDS: FAMOTIDINE 20 MG/2 ML VIAL IV SCH (21:57)
[2020-06-11] MEDS: HYDROcodone/APAP 10-325MG 1 EACH TAB PO PRN ×4 (00:02→21:05)
[2020-06-11 06:07] LABS: MCH 30.2 pg (25.0-35.0); MCHC 32.6 g/dL (31.0-37.0); MCV 92.6 fL (80.0-100.0); Mean Platelet Volume 7.6; Platelet Count 326 k/uL (150-450); RBC 4.96 m/uL (4.30-5.90); RDW 12.7 % (11.5-15.5); WBC 16.8 k/uL (3.8-10.6)
[2020-06-11] MEDS: IPRATROPIUM-ALBUTEROL 3 ML NEB INHALATION SCH ×4 (07:51→19:47)
[2020-06-11 07:55] LABS: Eosinophils # (M) 0.17 k/uL (0-0.7); Lymphocytes # (M) 1.18 k/uL (1.0-4.8); Neutrophils # (M) 15.46 k/uL (1.3-7.7); Neutrophils % (M) 92 %; Nucleated Red Blood Cells 0 /100 WBC (0-0); Total Cells Counted 100
[2020-06-11] MEDS: HEPARIN SODIUM,PORCINE 5,000 UNIT/ML 1 ML VIAL SQ SCH ×2 (08:55→20:44)
[2020-06-11] MEDS: methylPREDNISolone SOD SUCCI 40 MG/ML 1 ML VIAL IV SCH ×3 (08:55→23:20)
[2020-06-11] MEDS: METOPROLOL TARTRATE 50 MG TAB PO SCH ×2 (08:55→20:44)
[2020-06-11] MEDS: CYCLOBENZAPRINE 10 MG TAB PO PRN ×2 (08:55→15:21)
[2020-06-11] MEDS: amLODIPine 10 MG TAB PO SCH (08:55)
[2020-06-11] MEDS: FAMOTIDINE 20 MG/2 ML VIAL IV SCH (08:55)
--- NOTE | 2020-06-11 15:13 | P.CNPUL ---
History of Present Illness Consult date: 06/11/20 Reason for consult: dyspnea, COPD Chief complaint: Hemoptysis History of present illness: This is a 59-year-old male who was seen eval reexamined in observation area patient was admitted into the hospital with increased shortness of breath cough and found to have some hemoptysis, patient also has a history of pharyngeal tumor exact details however not available, he has followed ENT in the past and recent PET scan back in October 2019 has been negative, he has extensive degenerative joint disease required multiple injection therapy/epidural, currently patient is on bronchodilators as well as antibiotic and IV steroids he is still feel congested, no history of smoking, Review of Systems All systems: negative Past Medical History Past Medical History: Cancer, GERD/Reflux, Hyperlipidemia, Hypertension, Osteoarthritis (OA), Skin Disorder Additional Past Medical History / Comment(s): PSORIASIS. HAD REACTION TO SULFA AFTER DOG BITE, he developed Lazo-Juan Manuel syndrome. History of Any Multi-Drug Resistant Organisms: None Reported Past Surgical History: Appendectomy, Tonsillectomy Additional Past Surgical History / Comment(s): RT HAND I&D D/T DOG BITE. NOSE FX REPAIR. EGD 01/2015. skin cancer to left thumb with removal. Past Anesthesia/Blood Transfusion Reactions: No Reported Reaction Past Psychological History: Depression Additional Psychological History / Comment(s): IN PAST, situational Smoking Status: Never smoker Past Alcohol Use History: Occasional Past Drug Use History: None Reported - Past Family History Father Family Medical History: Cancer, Coronary Artery Disease (CAD) Medications and Allergies Home Medications Medication Instructions Recorded Confirmed Type Cyclobenzaprine [Flexeril] 10 mg PO TID PRN 07/09/19 06/09/20 History Acetaminophen [Tylenol] 500 mg PO BID PRN 06/09/20 06/09/20 History Hydrocodone/Acetaminophen [[place] 1 tab PO QID PRN 06/09/20 06/09/20 History 10-325] Metoprolol Tartrate [Lopressor] 100 mg PO BID 06/09/20 06/09/20 History amLODIPine [Norvasc] 10 mg PO DAILY 06/09/20 06/09/20 History Allergies Allergy/AdvReac Type Severity Reaction Status Date / Time Sulfa (Sulfonamide Allergy Severe Anaphylaxis Verified 06/09/20 17:22 Antibiotics) amoxicillin [From Augmentin] AdvReac Severe Unknown Verified 06/09/20 17:22 clavulanic acid AdvReac Severe Unknown Verified 06/09/20 17:22 [From Augmentin] Physical Exam Vitals: Vital Signs Temp Pulse Pulse Resp BP Pulse Ox 06/11/20 11:07 90 06/11/20 10:56 90 06/11/20 08:59 16 06/11/20 08:57 97.5 F L 106 H 16 133/81 98 06/11/20 08:04 89 06/11/20 07:52 88 06/11/20 04:01 97.7 F 99 14 123/82 99 06/10/20 21:59 97.7 F 118 H 16 115/75 95 06/10/20 19:56 103 H 06/10/20 19:43 106 H 06/10/20 16:10 93 06/10/20 15:56 89 96 Intake and Output 06/11/20 06/11/20 06/11/20 06:59 14:59 22:59 Other: Voiding Method Toilet # Voids 2 - Constitutional General appearance: average body habitus, cooperative, disheveled - EENT Eyes: EOMI, PERRLA Ears: bilateral: normal - Neck Neck: normal ROM Carotids: bilateral: upstroke normal Thyroid: negative: normal size - Respiratory Respiratory: bilateral: CTA - Gastrointestinal General gastrointestinal: normal bowel sounds - Integumentary Integumentary: normal turgor - Neurologic Neurologic: CNII-XII intact - Musculoskeletal Musculoskeletal: gait normal, generalized weakness, strength equal bilaterally - Psychiatric Psychiatric: A&O x's 3, appropriate affect, intact judgment & insight Results - Laboratory Findings CBC and BMP: 06/11/20 05:50 06/09/20 15:34 PT/INR, D-dimer PT 9.4 sec (9.0-12.0) 06/09/20 15:34 INR 0.9 (<1.2) 06/09/20 15:34 D-Dimer 0.37 mg/L FEU (<0.60) 06/09/20 15:34 Abnormal lab findings: Abnormal Labs 06/09/20 06/09/20 06/09/20 15:34 15:34 15:34 WBC 11.2 H Neutrophils # Neutrophils # (Manual) APTT 21.1 L Glucose 102 H Plasma Lactic Acid Darrin Albumin 5.1 H 06/09/20 06/10/20 06/11/20 15:34 05:25 05:50 WBC 12.2 H 16.8 H Neutrophils # 10.9 H Neutrophils # (Manual) 15.46 H APTT Glucose Plasma Lactic Acid Darrin 3.1 H* Albumin - Diagnostic Findings Chest x-ray: report reviewed, image reviewed Assessment and Plan Assessment: Acute COPD exacerbation Tracheobronchitis Hemoptysis Hypertension hypertensive cardiovascular disease Degenerative joint disease osteoarthritis History of upper airway tumor exact details are not available but with negative PET scan in October Plan: We'll continue antibiotics IV steroids and bronchodilator We'll get a computed tomography scan of the chest without contrast We'll schedule bronchoscopy for tomorrow Time with Patient: Greater than 30
--- NOTE | 2020-06-11 16:29 | CT ---
EXAMINATION TYPE: CT chest wo con DATE OF EXAM: 06/11/2020 COMPARISON: PET CT 11/16/2019 HISTORY: 59-year-old male Tracheobronchitis, hemoptysis, acute bronchospasms TECHNIQUE: Contiguous axial scanning of the chest without IV contrast. Coronal and sagittal reconstru ctions performed. CT DLP: 610.9 mGycm Automated exposure control for dose reduction was used. FINDINGS: Heart normal size without pericardial effusion. Mild LAD calcifications are noted. Aorta normal caliber with conventional arch vessel branching anatomy. No thoracic lymphadenopathy by CT size criteria. Some strandy dependent atelectasis right midlung. No consolidation or pleural effusion. Central airwa ys are clear. Tiny hiatal hernia. Visualized upper abdomen shows no gross abnormality. Bones: Mild degenerative disc disease lower thoracic spine. IMPRESSION: NO ACUTE PULMONARY PROCESS. SOME MINIMAL STRANDY ATELECTASIS ON THE RIGHT. TINY HIATAL HERNIA.
[2020-06-11] MEDS ORDERED: MENTHOL-CAMPHOR LOTION 222 APPLIC/222 ML BOTTLE TOPICAL PRN (17:04)
[2020-06-11] MEDS ORDERED: METHYL SALICYLATE/MENTHOL CREAM 5 OZ TOPICAL PRN (18:00)
[2020-06-11] MEDS: AZITHROMYCIN 500 MG in SODIUM CHLORIDE 0.9% 250 ML IVPB SCH (18:05)
--- NOTE | 2020-06-11 18:56 | P.PN ---
Subjective This is a pleasant 59 years old male with past medical history of hypertension, hyperlipidemia, GERD, osteoarthritis, psoriasis, depression. Presents because of dyspnea on coughing. Yesterday patient started having shortness of breath and he was covering green phlegm and while he was riding he was severe bouts of coughing where he noticed blood in his phlegm. Associated with chest tightness and pain anteriorly, felt like mild increased by deep coughing. Patient has audible wheezing when talking, yesterday he said that given he was worse but now is much better after using a bronchodilator. He said that breathing treatment and follow-up and he feels much better now. He denies leg pain or swelling. No dizziness. Patient denies sick contacts or recent travel. Patient is been tachycardic with heart rate 120-128 this morning, however his heart rate was in the ED yesterday. Breathing rate is 16, saturating 93% on room air. Labs showing leukocytosis of 11.2 on 12.2, rest of CBC is unremarkable, d-dimer is negative as 0.37, BMP is unremarkable, elevated lactic acid 3.1, came back to normal to 1.6. Liver enzymes were not elevated. Troponins negative less than 0.012, proBNP 67. In the emergency room patient was started on Zithromax and ceftriaxone and he got 1 dose of Solu-Medrol 125 mg 06/11/2020 Patient breathing continued to improve, is less wheezing and breathing more easily although he still slightly tachypneic. I still have some cough and no chest pain. He saturating 95% on room air and distal vitals are stable. He has leukocytosis but he is on steroids. pro-calcitonin is normal Pulmonary input is appreciated and they ordered a CT of the chest without contrast which was unremarkable for acute process. Patient is scheduled for bronchoscopy tomorrow as he still wheezing Review of Systems CONSTITUTIONAL: No fever, no malaise, no fatigue. HEENT: No recent visual problems or hearing problems. Denied any sore throat. CARDIOVASCULAR: No orthopnea, PND, no palpitations, no syncope. PULMONARY: No shortness of breath, no cough, no hemoptysis. GASTROINTESTINAL: No diarrhea, no nausea, no vomiting, no abdominal pain. Normoactive bowel sounds. NEUROLOGICAL: No headaches, no weakness, no numbness. HEMATOLOGICAL: Denies any bleeding or petechiae. GENITOURINARY: Denies any burning micturition, frequency, or urgency. MUSCULOSKELETAL/RHEUMATOLOGICAL: Denies any joint pain, swelling, or any muscle pain. ENDOCRINE: Denies any polyuria or polydipsia. Active Medications Generic Name Dose Route Start Last Admin Trade Name Freq PRN Reason Stop Dose Admin Acetaminophen 325 mg 06/09/20 23:00 Tylenol Tab PO Q6HR PRN Pain Hydrocodone Bitart/Acetaminophen 1 each 06/09/20 21:41 06/11/20 15:21 [place] 10 PO 1 each QID PRN Administration Pain Albuterol/Ipratropium 3 ml 06/09/20 20:00 06/11/20 15:45 Duoneb 0.5 Mg-3 Mg/3 Ml Soln INHALATION 3 ml RT-QID RAJENDRA Administration Albuterol/Ipratropium 3 ml 06/10/20 01:12 06/10/20 01:29 Duoneb 0.5 Mg-3 Mg/3 Ml Soln INHALATION 3 ml RT-Q4H PRN Administration Shortness Of Breath Or Wheezing Amlodipine Besylate 10 mg 06/10/20 09:00 06/11/20 08:55 Norvasc PO 10 mg DAILY RAJENDRA Administration Cyclobenzaprine HCl 10 mg 06/09/20 22:00 06/11/20 15:21 Flexeril PO 10 mg TID PRN Administration Muscle Pain Famotidine 20 mg 06/11/20 21:00 Pepcid PO Q12HR RAJENDRA Guaifenesin/Dextromethorphan 10 ml 06/10/20 11:00 Robitussin Dm PO Q8H PRN Cough Heparin Sodium (Porcine) 5,000 unit 06/10/20 21:00 06/11/20 08:55 Heparin SQ 5,000 unit Q12HR RAJENDRA Administration Ceftriaxone Sodium 1 gm/ 50 mls @ 100 mls/hr 06/10/20 18:00 06/11/20 17:21 Sodium Chloride IVPB 100 mls/hr Q24H RAJENDRA Administration Azithromycin 500 mg/ Sodium 250 mls @ 250 mls/hr 06/10/20 18:00 06/11/20 18:05 Chloride IVPB 250 mls/hr Q24H RAJENDRA Administration Methyl Salicylate 1 applic 06/11/20 18:00 Thera-Gesic Cream TOPICAL TID PRN Pain Methylprednisolone Sodium Succinate 40 mg 06/10/20 11:00 06/11/20 17:27 Solu-Medrol IV 40 mg Q8HR RAJENDRA Administration Metoprolol Tartrate 100 mg 06/10/20 09:00 06/11/20 08:55 Lopressor PO 100 mg BID RAJENDRA Administration Objective - Vital Signs Vital signs: Vital Signs Temp 98.3 F 06/11/20 15:00 Pulse 90 06/11/20 15:56 Resp 16 06/11/20 15:00 BP 116/78 06/11/20 15:00 Pulse Ox 95 06/11/20 15:45 Intake & Output 06/10/20 06/11/20 06/11/20 18:59 06:59 18:59 Intake Total 625 Balance 625 Intake: Oral 125 Other 500 Other: Voiding Method Toilet # Voids 1 2 - Exam GENERAL: The patient is alert and oriented x3, not in any acute distress. Well developed, well nourished. HEENT: Pupils are round and equally reacting to light. EOMI. No scleral icterus. No conjunctival pallor. Normocephalic, atraumatic. No pharyngeal erythema. No thyromegaly. CARDIOVASCULAR: S1 and S2 present. No murmurs, rubs, or gallops. PULMONARY: Chest is clear to auscultation, no wheezing or crackles. ABDOMEN: Soft, nontender, nondistended, normoactive bowel sounds. No palpable organomegaly. MUSCULOSKELETAL: No joint swelling or deformity. EXTREMITIES: No cyanosis, clubbing, or pedal edema. NEUROLOGICAL: Gross neurological examination did not reveal any focal deficits. SKIN: No rashes. No petechiae - Labs CBC & Chem 7: 06/11/20 05:50 06/09/20 15:34 Labs: Abnormal Lab Results - Last 24 Hours (Table) 06/11/20 Range/Units 05:50 WBC 16.8 H (3.8-10.6) k/uL Neutrophils # (Manual) 15.46 H (1.3-7.7) k/uL Microbiology - Last 24 Hours (Table) 06/09/20 17:53 Blood Culture - Preliminary Blood No Growth after 24 hours Assessment and Plan Assessment: acute tracheobronchitis, with one episode of blood in the phlegm. Chest x-ray didn't show evidence of consultation or infiltrate. Covid test is not detected Acute COPD exacerbation Elevated lactic acid, came back to normal Hypertension Hyperlipidemia Osteoarthritis Psoriasis History of depression, not an active issue Plan: This is a pleasant 59 years old male who presents with acute tracheobronchitis. Continue with ceftriaxone, Zithromax, Solu-Medrol. Pulmonary consult, recommended bronchoscopy, cough medicine. Labs and medication were reviewed.. Continue same treatment. Continue with symptomatic treatment. Resume home medication. Monitor lytes and vitals. DVT and GI prophylaxis. Further recommendations of the clinical course of the patient DVT prophylaxis: Subcutaneous heparin GI Prophylaxis: Pepcid
[2020-06-11] MEDS: FAMOTIDINE 20 MG TAB PO SCH (21:05)
[2020-06-12] MEDS: HYDROcodone/APAP 10-325MG 1 EACH TAB PO PRN ×3 (04:54→21:14)
[2020-06-12 06:49] LABS: Basophils % (A) 0 %; Eosinophils # (A) 0.1 k/uL (0-0.7); Eosinophils % (A) 1 %; HCT 44.3 % (39.0-53.0); HGB 14.7 gm/dL (13.0-17.5); Lymphocytes # (A) 1.2 k/uL (1.0-4.8); Lymphocytes % (A) 7 %; MCH 30.2 pg (25.0-35.0); MCHC 33.1 g/dL (31.0-37.0); MCV 91.5 fL (80.0-100.0); Mean Platelet Volume 7.9; Monocytes # (A) 0.5 k/uL (0-1.0); Monocytes % (A) 3 %; Neutrophils # (A) 13.9 k/uL (1.3-7.7); Neutrophils % (A) 88 %; Platelet Count 317 k/uL (150-450); RBC 4.85 m/uL (4.30-5.90); RDW 12.7 % (11.5-15.5); WBC 15.8 k/uL (3.8-10.6)
[2020-06-12] MEDS: LACTATED RINGERS 1,000 ML IV SCH (06:58)
[2020-06-12] MEDS: IPRATROPIUM-ALBUTEROL 3 ML NEB INHALATION SCH ×4 (07:42→19:28)
[2020-06-12] MEDS: methylPREDNISolone SOD SUCCI 40 MG/ML 1 ML VIAL IV SCH ×3 (08:24→23:49)
[2020-06-12] MEDS: amLODIPine 10 MG TAB PO SCH (08:24)
[2020-06-12] MEDS: METOPROLOL TARTRATE 50 MG TAB PO SCH ×2 (08:24→21:20)
[2020-06-12] MEDS: HEPARIN SODIUM,PORCINE 5,000 UNIT/ML 1 ML VIAL SQ SCH ×2 (08:24→21:15)
[2020-06-12] MEDS: FAMOTIDINE 20 MG TAB PO SCH ×2 (08:24→21:14)
[2020-06-12] MEDS ORDERED: MIDAZOLAM 2 MG/2 ML VIAL ONE (10:24)
[2020-06-12] MEDS ORDERED: fentaNYL (PF) 50 MCG/ML 2 ML AMP ONE (10:24)
[2020-06-12] MEDS ORDERED: KETAMINE 10 MG/ML 20 ML VIAL ONE (10:24)
[2020-06-12] MEDS ORDERED: LIDOCAINE 1% INJ 10MG/ML (20 ML MDV) ONE (10:24)
[2020-06-12] MEDS ORDERED: PROPOFOL 10 MG/ML 50 ML VIAL IV ONE (10:24)
[2020-06-12] MEDS ORDERED: LIDOCAINE 2% INJ 20 MG/ML INTRATRACH ONE (10:28)
--- NOTE | 2020-06-12 10:42 | P.PN ---
Subjective Progress Note Date: 06/12/20 Principal diagnosis: Acute COPD exacerbation Tracheobronchitis Hemoptysis Hypertension hypertensive cardiovascular disease Degenerative joint disease osteoarthritis History of upper airway tumor exact details are not available but with negative PET scan in 06/12/2020, patient seen eval examined during the rounds labs reviewed medications reviewed care plan discussed with the patient as well, CT chest scan finding reviewed with the patient, some strandy atelectatic changes at the bases more so on the right side were noted, plan is to proceed with bronchoscopy, pros and cons alternative and side effect discussed with the patient, no episodes of the hemoptysis is noted in last 24 hours This is a 59-year-old male who was seen eval reexamined in observation area patient was admitted into the hospital with increased shortness of breath cough and found to have some hemoptysis, patient also has a history of pharyngeal tumor exact details however not available, he has followed ENT in the past and recent PET scan back in October 2019 has been negative, he has extensive degenerative joint disease required multiple injection therapy/epidural, currently patient is on bronchodilators as well as antibiotic and IV steroids he is still feel congested, no history of smoking, Objective - Vital Signs Vital signs: Vital Signs Temp 97.8 F 06/12/20 08:24 Pulse 69 06/12/20 08:24 Resp 16 06/12/20 08:24 BP 113/80 06/12/20 08:24 Pulse Ox 97 06/12/20 08:24 Intake & Output 06/11/20 06/12/20 06/12/20 18:59 06:59 18:59 Intake Total 850 0 Balance 850 0 Intake: Oral 850 0 Other: Voiding Method Toilet Toilet # Voids 2 1 - Exam - Constitutional General appearance: average body habitus, cooperative, disheveled - EENT Eyes: EOMI, PERRLA Ears: bilateral: normal - Neck Neck: normal ROM Carotids: bilateral: upstroke normal Thyroid: negative: normal size - Respiratory Respiratory: bilateral: CTA - Gastrointestinal General gastrointestinal: normal bowel sounds - Integumentary Integumentary: normal turgor - Neurologic Neurologic: CNII-XII intact - Musculoskeletal Musculoskeletal: gait normal, generalized weakness, strength equal bilaterally - Psychiatric Psychiatric: A&O x's 3, appropriate affect, intact judgment & insight - Labs CBC & Chem 7: 06/12/20 06:41 06/09/20 15:34 Labs: Abnormal Lab Results - Last 24 Hours (Table) 06/12/20 Range/Units 06:41 WBC 15.8 H (3.8-10.6) k/uL Neutrophils # 13.9 H (1.3-7.7) k/uL Microbiology - Last 24 Hours (Table) 06/09/20 17:53 Blood Culture - Preliminary Blood No Growth after 48 hours Assessment and Plan Assessment: Acute COPD exacerbation Tracheobronchitis Hemoptysis likely due to airway inflammation related to above Hypertension hypertensive cardiovascular disease Degenerative joint disease osteoarthritis History of upper airway tumor exact details are not available but with negative PET scan in October Plan: We'll continue antibiotics steroids and bronchodilator Reviewed computed tomography scan of the chest without contrast Bronchoscopy later on today Time with Patient: Greater than 30
--- NOTE | 2020-06-12 10:44 | P.PCN ---
Date of Procedure: 06/12/20 Preoperative Diagnosis: Hemoptysis Postoperative Diagnosis: No source of bleeding noted Anesthesia: MAC Surgeon: Marlo Lewis Estimated Blood Loss (ml): 0 Condition: stable Disposition: observation Indications for Procedure: As above Operative Findings: As below Description of Procedure: Patient prepared and draped in a usual fashion fiberoptic bronchoscope was passed through the right nares the vocal cords were normal structure and function tip of the scope was passed beyond the vocal cords into trachea which was normal in appearance tip of the scope was passed to the right side right upper lobe middle lobe and lower lobe along with subsegment inspected no endobronchial mass or lesion seen no bleeding source identified, tip of the scope was subsequently passed on the left side left upper lobe lingular lobe and left lower lobe along with subsegment inspected no endobronchial lesion mass or the source of bleeding identified, BAL was performed on the right upper lobe right lower lobe and left lower lobe, patient tolerated procedure well no complication noted
--- NOTE | 2020-06-12 12:46 | P.PN ---
Subjective This is a pleasant 59 years old male with past medical history of hypertension, hyperlipidemia, GERD, osteoarthritis, psoriasis, depression. Presents because of dyspnea on coughing. Yesterday patient started having shortness of breath and he was covering green phlegm and while he was riding he was severe bouts of coughing where he noticed blood in his phlegm. Associated with chest tightness and pain anteriorly, felt like mild increased by deep coughing. Patient has audible wheezing when talking, yesterday he said that given he was worse but now is much better after using a bronchodilator. He said that breathing treatment and follow-up and he feels much better now. He denies leg pain or swelling. No dizziness. Patient denies sick contacts or recent travel. Patient is been tachycardic with heart rate 120-128 this morning, however his heart rate was in the ED yesterday. Breathing rate is 16, saturating 93% on room air. Labs showing leukocytosis of 11.2 on 12.2, rest of CBC is unremarkable, d-dimer is negative as 0.37, BMP is unremarkable, elevated lactic acid 3.1, came back to normal to 1.6. Liver enzymes were not elevated. Troponins negative less than 0.012, proBNP 67. In the emergency room patient was started on Zithromax and ceftriaxone and he got 1 dose of Solu-Medrol 125 mg 06/11/2020 Patient breathing continued to improve, is less wheezing and breathing more easily although he still slightly tachypneic. I still have some cough and no chest pain. He saturating 95% on room air and distal vitals are stable. He has leukocytosis but he is on steroids. pro-calcitonin is normal Pulmonary input is appreciated and they ordered a CT of the chest without contrast which was unremarkable for acute process. Patient is scheduled for bronchoscopy tomorrow as he still wheezing 06/12/2020 Patient is seen after bronchoscopy procedure, there was one well this morning with less dyspnea and scuffing and no chest pain however after the procedure he still have some sort irritation and coughing. Vitals are stable. WBC is 15.8 K which is a stable while he is on steroids. CT of the chest was unremarkable Bronchus of B show no source of bleeding noted. Is also status post post-BAL of the right upper and right lower lobe and left lower lobe. Results are pending biopsy and pending. Patient remains on Solu-Medrol, ceftriaxone and Zithromax Objective - Vital Signs Vital signs: Vital Signs Temp 98.0 F 06/12/20 12:11 Pulse 71 06/12/20 12:11 Resp 16 06/12/20 12:11 BP 125/72 06/12/20 12:11 Pulse Ox 96 06/12/20 12:11 Intake & Output 06/11/20 06/12/20 06/12/20 18:59 06:59 18:59 Intake Total 850 200 Balance 850 200 Intake: Oral 850 200 Other: Voiding Method Toilet Toilet # Voids 2 1 - Exam GENERAL: The patient is alert and oriented x3, not in any acute distress. Well developed, well nourished. HEENT: Pupils are round and equally reacting to light. EOMI. No scleral icterus. No conjunctival pallor. Normocephalic, atraumatic. No pharyngeal erythema. No thyromegaly. CARDIOVASCULAR: S1 and S2 present. No murmurs, rubs, or gallops. PULMONARY: Chest is clear to auscultation, no wheezing or crackles. ABDOMEN: Soft, nontender, nondistended, normoactive bowel sounds. No palpable organomegaly. MUSCULOSKELETAL: No joint swelling or deformity. EXTREMITIES: No cyanosis, clubbing, or pedal edema. NEUROLOGICAL: Gross neurological examination did not reveal any focal deficits. SKIN: No rashes. No petechiae - Labs CBC & Chem 7: 06/12/20 06:41 06/09/20 15:34 Labs: Abnormal Lab Results - Last 24 Hours (Table) 06/12/20 Range/Units 06:41 WBC 15.8 H (3.8-10.6) k/uL Neutrophils # 13.9 H (1.3-7.7) k/uL Microbiology - Last 24 Hours (Table) 06/09/20 17:53 Blood Culture - Preliminary Blood No Growth after 48 hours Assessment and Plan Assessment: acute tracheobronchitis, with one episode of blood in the phlegm. Chest x-ray didn't show evidence of consultation or infiltrate. Covid test is not detected Acute COPD exacerbation Elevated lactic acid, came back to normal Hypertension Hyperlipidemia Osteoarthritis Psoriasis History of depression, not an active issue Plan: This is a pleasant 59 years old male who presents with acute tracheobronchitis. Continue with ceftriaxone, Zithromax, Solu-Medrol. Pulmonary consult, recommended bronchoscopy, cough medicine. Labs and medication were reviewed.. Continue same treatment. Continue with symptomatic treatment. Resume home medication. Monitor lytes and vitals. DVT and GI prophylaxis. Further recommendations of the clinical course of the patient DVT prophylaxis: Subcutaneous heparin GI Prophylaxis: Pepcid
[2020-06-12] MEDS: CYCLOBENZAPRINE 10 MG TAB PO PRN ×2 (15:36→21:13)
[2020-06-12] MEDS: AZITHROMYCIN 500 MG in SODIUM CHLORIDE 0.9% 250 ML IVPB SCH (18:24)
[2020-06-12] MEDS ORDERED: diphenhydrAMINE 25 MG CAP PO PRN (18:48)
[2020-06-12] MEDS ORDERED: MELATONIN 5 MG TABLET PO SCH (21:00)
[2020-06-12] MEDS: IPRATROPIUM-ALBUTEROL 3 ML NEB INHALATION PRN (21:50)
[2020-06-13] MEDS: HYDROcodone/APAP 10-325MG 1 EACH TAB PO PRN ×2 (03:38→09:25)
[2020-06-13 06:03] LABS: Basophils % (A) 0 %; Eosinophils % (A) 0 %; HCT 41.6 % (39.0-53.0); HGB 13.7 gm/dL (13.0-17.5); Lymphocytes # (A) 1.1 k/uL (1.0-4.8); Lymphocytes % (A) 10 %; MCV 90.9 fL (80.0-100.0); Monocytes # (A) 0.6 k/uL (0-1.0); Monocytes % (A) 5 %; Neutrophils # (A) 9.6 k/uL (1.3-7.7); Neutrophils % (A) 84 %; Platelet Count 315 k/uL (150-450); RBC 4.58 m/uL (4.30-5.90); RDW 12.5 % (11.5-15.5); WBC 11.5 k/uL (3.8-10.6)
[2020-06-13] MEDS: IPRATROPIUM-ALBUTEROL 3 ML NEB INHALATION SCH (08:10)
[2020-06-13 09:15] VITALS: BP 154/77; PULSE 90; RESP 16; TEMP 97.7
[2020-06-13] MEDS: LACTATED RINGERS 1,000 ML IV SCH (09:16)
[2020-06-13] MEDS: methylPREDNISolone SOD SUCCI 40 MG/ML 1 ML VIAL IV SCH (09:24)
[2020-06-13] MEDS: amLODIPine 10 MG TAB PO SCH (09:24)
[2020-06-13] MEDS: METOPROLOL TARTRATE 50 MG TAB PO SCH (09:24)
[2020-06-13] MEDS: FAMOTIDINE 20 MG TAB PO SCH (09:24)
[2020-06-13] MEDS: HEPARIN SODIUM,PORCINE 5,000 UNIT/ML 1 ML VIAL SQ SCH (09:25)
--- NOTE | 2020-06-13 10:35 | P.PN ---
Subjective Progress Note Date: 06/13/20 Principal diagnosis: Acute COPD exacerbation Tracheobronchitis Hemoptysis Hypertension hypertensive cardiovascular disease Degenerative joint disease osteoarthritis History of upper airway tumor exact details are not available but with negative PET scan in 06/13/2020, patient seen and evaluated examined during the rounds labs reviewed medications reviewed care plan discussed, patient is awake and alert denies any chest pain breathing comfortably agree with discharge planning and follow-up in outpatient setting culture so far has been negative 06/12/2020, patient seen eval examined during the rounds labs reviewed medications reviewed care plan discussed with the patient as well, CT chest scan finding reviewed with the patient, some strandy atelectatic changes at the bases more so on the right side were noted, plan is to proceed with bronchoscopy, pros and cons alternative and side effect discussed with the patient, no episodes of the hemoptysis is noted in last 24 hours This is a 59-year-old male who was seen eval reexamined in observation area pat nt was admitted into the hospital with increased shortness of breath cough and found to have some hemoptysis, patient also has a history of pharyngeal tumor exact details however not available, he has followed ENT in the past and recent PET scan back in October 2019 has been negative, he has extensive degenerative joint disease required multiple injection therapy/epidural, currently patient is on bronchodilators as well as antibiotic and IV steroids he is still feel congested, no history of smoking, Objective - Vital Signs Vital signs: Vital Signs Temp 97.7 F 06/13/20 09:00 Pulse 90 06/13/20 09:00 Resp 16 06/13/20 09:00 BP 154/77 06/13/20 09:00 Pulse Ox 96 06/13/20 09:00 Intake & Output 06/12/20 06/13/20 06/13/20 18:59 06:59 18:59 Intake Total 200 120 Balance 200 120 Intake: Oral 200 120 Other: Voiding Method Toilet Toilet Toilet # Voids 1 1 - Exam - Constitutional General appearance: average body habitus, cooperative, disheveled - EENT Eyes: EOMI, PERRLA Ears: bilateral: normal - Neck Neck: normal ROM Carotids: bilateral: upstroke normal Thyroid: negative: normal size - Respiratory Respiratory: bilateral: CTA - Gastrointestinal General gastrointestinal: normal bowel sounds - Integumentary Integumentary: normal turgor - Neurologic Neurologic: CNII-XII intact - Musculoskeletal Musculoskeletal: gait normal, generalized weakness, strength equal bilaterally - Psychiatric Psychiatric: A&O x's 3, appropriate affect, intact judgment & insight - Labs CBC & Chem 7: 06/13/20 05:34 06/09/20 15:34 Labs: Abnormal Lab Results - Last 24 Hours (Table) 06/13/20 Range/Units 05:34 WBC 11.5 H (3.8-10.6) k/uL Neutrophils # 9.6 H (1.3-7.7) k/uL Microbiology - Last 24 Hours (Table) 06/12/20 10:28 Gram Stain - Preliminary Bronchial Washings - Random Bronchial Washings Culture - Preliminary 06/12/20 10:28 Acid Fast Bacilli Culture - Preliminary Bronchial Washings - Random 06/12/20 10:28 Fungal Culture - Preliminary Bronchial Washings - Random 06/09/20 17:53 Blood Culture - Preliminary Blood No Growth after 72 hours Assessment and Plan Assessment: Acute COPD exacerbation Tracheobronchitis Hemoptysis likely due to airway inflammation related to above resolved now Hypertension hypertensive cardiovascular disease Degenerative joint disease osteoarthritis History of upper airway tumor exact details are not available but with negative PET scan in October Plan: We'll continue antibiotics steroids and bronchodilator, at the time of discharge can be switched to oral antibiotics and prednisone Reviewed computed tomography scan of the chest without contrast Bronchoscopy finding reviewed with the patient Stable pulmonary standpoint for discharge follow-up in outpatient setting Time with Patient: Greater than 30
--- NOTE | 2020-06-13 23:10 | P.DS ---
Providers Date of admission: 06/11/20 15:20 Attending physician: Mynor Yeboah MD Consults: 06/09/20 17:51 Consult Physician Urgent Consulting Provider: Marlo Lewis Consult Reason/Comments: dyspnea Do you want consulting provider notified?: Yes Primary care physician: Dayo Luo Hospital Course: Diagnoses: acute tracheobronchitis, with one episode of blood in the phlegm. Chest x-ray didn't show evidence of consultation or infiltrate. Covid test is not detected Acute COPD exacerbation Elevated lactic acid, came back to normal Hypertension Hyperlipidemia Osteoarthritis Psoriasis History of depression, not an active issue Hospital course: This is a pleasant 59 years old male with past medical history of hypertension, hyperlipidemia, GERD, osteoarthritis, psoriasis, depression. Presents because of dyspnea on coughing. Also with shortness of breath and he was coughing green phlegm and he noticed blood in his phlegm. Associated with chest tightness and pain anteriorly, his chest x-ray was unremarkable, patient has been evaluated by pulmonologis, patient was treated with antibiotics with Rocephin and Zithromax, and Solu-Medrol, CT of the chest was unremarkable, he underwent bronchoscopy which could not find a lesion, is a status post BAL lavage and result is pending and patient was instructed to follow up with retort operator Dr. Lewis on 06/26 for the result and he verbalized understanding and acceptance, risks including but not limited to cancer and infection are explained for him and he understands Eventually patient is back to more close to his baseline, on the day of discharge she denies any new symptoms, his breathing quietly and he saturating 90 of from air, and scuffing and dyspnea are significantly improved, no chest pain, no change in urine or bowel habits. No fever Patient was cleared for discharge by the pulmonary service Patient will be discharged on tapering steroids and a short course of oral antibiotic Problems and management plan were discussed with the patient and he verbalized understanding and acceptance Patient was found stable and can be discharged home however he needs follow-up as an outpatient. Patient was instructed to follow up with PCP Dr. Luo within one week and patient agrees. Also patient agrees with the appointments made for him with Dr. Cabrera on 06/26 and states he will follow-up Gen: patient is a AAOx3, no distress CVS: S1-S2, RRR, no murmur Lungs: B/L CTA, no wheezing Abdomen: soft, no distention, no tenderness, positive bowel sounds Extremity: no leg edema or induration Time spent more than 35 minutes Patient Condition at Discharge: Fair Plan - Discharge Summary New Discharge Prescriptions: New Cefuroxime Axetil [Ceftin] 500 mg PO BID 7 Days #14 tab Famotidine [Pepcid] 20 mg PO BID #60 tablet predniSONE 10 mg PO DIRECTED #40 tab Albuterol Inhaler [Ventolin Hfa Inhaler] 1 puff INHALATION Q6HR PRN #1 inh PRN Reason: Shortness Of Breath Or Wheezing Azithromycin [Zithromax] 250 mg PO DAILY 3 Days #3 tab Continue Cyclobenzaprine [Flexeril] 10 mg PO TID PRN PRN Reason: Muscle Pain amLODIPine [Norvasc] 10 mg PO DAILY Metoprolol Tartrate [Lopressor] 100 mg PO BID Acetaminophen [Tylenol] 500 mg PO BID PRN PRN Reason: Pain Hydrocodone/Acetaminophen [[place] 10-325] 1 tab PO QID PRN PRN Reason: Pain Discharge Medication List Cyclobenzaprine [Flexeril] 10 mg PO TID PRN 07/09/19 [History] Acetaminophen [Tylenol] 500 mg PO BID PRN 06/09/20 [History] Hydrocodone/Acetaminophen [[place] 10-325] 1 tab PO QID PRN 06/09/20 [History] Metoprolol Tartrate [Lopressor] 100 mg PO BID 06/09/20 [History] amLODIPine [Norvasc] 10 mg PO DAILY 06/09/20 [History] Albuterol Inhaler [Ventolin Hfa Inhaler] 1 puff INHALATION Q6HR PRN #1 inh 06/13/20 [Rx] Azithromycin [Zithromax] 250 mg PO DAILY 3 Days #3 tab 06/13/20 [Rx] Cefuroxime Axetil [Ceftin] 500 mg PO BID 7 Days #14 tab 06/13/20 [Rx] Famotidine [Pepcid] 20 mg PO BID #60 tablet 06/13/20 [Rx] predniSONE 10 mg PO DIRECTED #40 tab 06/13/20 [Rx] Follow up Appointment(s)/Referral(s): Dayo Luo MD [Primary Care Provider] - 1-2 days Marlo Lewis MD [STAFF PHYSICIAN] - 06/26/20 1:15 pm Patient Instructions/Handouts: Acute Bronchitis (GEN) Activity/Diet/Wound Care/Special Instructions: Low carbohydrate diet Activity is limited till you see your doctor Discharge Disposition: HOME SELF-CARE
== END 2020-06-13 11:35 | disposition home or self-care (01) | DRG 191 ==
LOC: EC 15:02 → 1SOBS 17:51 → OBSVTOIN 06-11 15:20 → 1SOBS 06-12 18:40
PROVIDERS: ADMIT Internal Medicine; ATTEND Internal Medicine
PROC: 0B9C8ZX Drainage of Right Upper Lung Lobe, Via Natural or Artificial Opening Endoscopic, Diagnostic (ICD-10-PCS; 2020-06-12)
PROC: 0B9F8ZX Drainage of Right Lower Lung Lobe, Via Natural or Artificial Opening Endoscopic, Diagnostic (ICD-10-PCS; 2020-06-12)
PROC: 0B9J8ZX Drainage of Left Lower Lung Lobe, Via Natural or Artificial Opening Endoscopic, Diagnostic (ICD-10-PCS; principal; 2020-06-12 10:00)
DX: J44.1 Chronic obstructive pulmonary disease with (acute) exacerbation (principal); R04.2 Hemoptysis; L51.1 Stevens-Johnson syndrome; E87.2 Acidosis; J44.0 Chronic obstructive pulmonary disease with (acute) lower respiratory infection; Z20.828 Contact with and (suspected) exposure to other viral communicable diseases; I11.9 Hypertensive heart disease without heart failure; M19.90 Unspecified osteoarthritis, unspecified site; J20.9 Acute bronchitis, unspecified; E78.5 Hyperlipidemia, unspecified; K21.9 Gastro-esophageal reflux disease without esophagitis; L40.9 Psoriasis, unspecified; R00.0 Tachycardia, unspecified; E66.9 Obesity, unspecified; Z68.33 Body mass index [BMI] 33.0-33.9, adult; Z79.899 Other long term (current) drug therapy; Z87.828 Personal history of other (healed) physical injury and trauma; Z90.49 Acquired absence of other specified parts of digestive tract; Z86.59 Personal history of other mental and behavioral disorders; Z98.890 Other specified postprocedural states; Z85.828 Personal history of other malignant neoplasm of skin; Z87.81 Personal history of (healed) traumatic fracture; Z88.0 Allergy status to penicillin; Z88.2 Allergy status to sulfonamides; Z88.8 Allergy status to other drugs, medicaments and biological substances; Z82.49 Family history of ischemic heart disease and other diseases of the circulatory system
CPT/HCPCS: 31624; 36415; 71046; 71250; 80053; 83605; 83735; 83880; 84145; 84484; 85025; 85379; 85610; 85730; 87040; 87070; 87102; 87116; 87205; 87206; 87252; 88108; 88305; 93005; 94640; 94760; 96365; 96366; 96375; 99285

== ENCOUNTER 2020-09-29 09:23 | Day surgery (SDC) | payer BC ==
[2020-09-24 11:20] VITALS: BMI 34.8
[~2020-09-29 09:23] MED LIST: LACTATED RINGERS 1,000 ML IV SCH; LIDOCAINE 1% (10MG/ML) FOR IV START INTRADERMA PRN
[2020-09-29 09:59] VITALS: RESP 16; TEMP 97.3
[2020-09-29] MEDS ORDERED: LIDOCAINE 1% INJ 10MG/ML (20 ML MDV) ONE (10:45)
[2020-09-29] MEDS ORDERED: PROPOFOL 10 MG/ML 20 ML VIAL IV ONE (10:45)
--- NOTE | 2020-09-29 11:10 | P.PCN ---
Date of Procedure: 09/29/20 Description of Procedure: BRIEF HISTORY: Patient is a 60-year-old male presenting for outpatient EGD for evaluation of symptoms GERD. He reports frequent symptoms of nighttime reflux. Symptoms of been improved well on Protonix therapy. He does report eating late at night. He also reports epigastric pain. PROCEDURE PERFORMED: Esophagogastroduodenoscopy with biopsy. PREOPERATIVE DIAGNOSIS: GERD, epigastric pain. ESTIMATED BLOOD LOSS: Minimal. IV sedation per anesthesia. PROCEDURE: After informed consent was obtained, the patient was brought into the endoscopy unit. IV sedation was administered by Anesthesia under continuous monitoring. Initially the Olympus GIF-190 video endoscope was inserted into the mouth. Esophagus intubated without any difficulty. It was gradually advanced into the stomach and duodenum and carefully examined. The bulb and the second part of the duodenum appeared grossly normal, there was however a linear 3 mm nonbleeding ulcer in the second portion of the duodenum which was biopsied, there were no high risk stigmata for bleeding. The scope at this time was withdrawn to the stomach, adequately insufflated with air, and upon careful examination, mucosa of the antrum, body, cardia and the fundus appeared normal, except for some mild punctate erythema in the antrum and body suggestive of mild gastritis with biopsies taken. The scope was then withdrawn into the esophagus. The GE junction was located at 40 cm from the incisors and biopsied. The esophagus appeared normal. There were no erosions or ulcerations seen and the patient tolerated the procedure well. IMPRESSION: 1. Linear nonbleeding duodenal ulcer, biopsied. 2. Mild gastritis. 3. Biopsies of the antrum and body and GE junction. RECOMMENDATIONS: The findings of this examination were discussed with the patient and his family. Okay to resume diet. Okay to resume medications. Continue Protonix therapy. Avoid NSAID use. Await pathology from biopsies.
[2020-09-29 11:27] VITALS: BP 131/85; PULSE 63
== END 2020-09-29 11:34 | disposition home or self-care (01) ==
LOC: ORWHC2ENDO 09:23
PROVIDERS: ATTEND Internal Medicine
DX: K29.50 Unspecified chronic gastritis without bleeding (principal); K21.00 Gastro-esophageal reflux disease with esophagitis, without bleeding; K26.9 Duodenal ulcer, unspecified as acute or chronic, without hemorrhage or perforation; I10 Essential (primary) hypertension; L51.1 Stevens-Johnson syndrome; E78.5 Hyperlipidemia, unspecified; M19.90 Unspecified osteoarthritis, unspecified site; Z88.2 Allergy status to sulfonamides; Z88.0 Allergy status to penicillin; Z88.8 Allergy status to other drugs, medicaments and biological substances; Z79.899 Other long term (current) drug therapy; Z85.828 Personal history of other malignant neoplasm of skin; Z98.890 Other specified postprocedural states; Z87.891 Personal history of nicotine dependence
CPT/HCPCS: 88305; 43239; J2001; J2704

== ENCOUNTER → 2021-01-07 | Outpatient (CLI) | payer BC ==
--- NOTE | 2021-01-07 16:08 | US ---
EXAMINATION TYPE: US duplex aorta DATE OF EXAM: 01/07/2021 COMPARISON: NONE CLINICAL HISTORY: R93.89 ABN FINDINGS ON DIAGNOSTIC IMAGING. plaque seen on MRI EXAM MEASUREMENTS: Abdominal Aorta: Proximal: 2.3 x 2.2cm Mid: 2.1x 2.2cm Distal: not seen due to bowel gas Bifurcation: not seen due to bowel gas IMPRESSION: 1. Limited evaluation of the distal abdominal aorta due to bowel gas. 2. No suspicious acute changes.
== END ==
LOC: RADUSWWP 12:57
PROVIDERS: ATTEND Family Medicine
DX: R93.89 Abnormal findings on diagnostic imaging of other specified body structures (principal)
CPT/HCPCS: 93979

== ENCOUNTER → 2021-02-17 | Day surgery (SDC) | payer BC ==
[2021-02-15 15:26] VITALS: BMI 35.6
[~2021-02-17] MED LIST changes: +LACTATED RINGERS 1,000 ML IV ONE; +LIDOCAINE 1% INJ 10MG/ML (20 ML MDV) ONE; +PROPOFOL 10 MG/ML 20 ML VIAL IV ONE
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
[2021-02-17 07:57] VITALS: TEMP 97.8
--- NOTE | 2021-02-17 08:48 | P.PCN ---
Date of Procedure: 02/17/21 Description of Procedure: PREOPERATIVE DIAGNOSIS: Gastroesophageal reflux disease. History of gastric ulcers POSTOPERATIVE DIAGNOSIS: Acute gastric ulcers with recent bleed Gastritis Gastroesophageal reflux disease Presbyesophagus OPERATION: Esophagogastroduodenoscopy with biopsies along antrum. SURGEON: Magda Rivera MD ANESTHESIA: MAC. INDICATIONS: The patient is a 60-year-old male who presents with a history of reflux disease. Benefits and risks of the procedure were described. Informed consent was obtained. DESCRIPTION: The patient was brought into the endoscopy suite and laid in the left lateral decubitus position. An Olympus gastroscope was passed along the posterior oropharynx down to the distal esophagus where the squamocolumnar junction was encountered at 40 cm from the incisors. The stomach was entered and no bile reflux was found. Additional findings are listed below. Biopsies with cold forceps were obtained of the antrum. The first through third portion of the duodenum was examined and unremarkable. Retroflexion of the scope confirmed Hill grade 2 lower esophageal valve. The squamocolumnar junction demonstrated LA grade B erosive esophagitis. The stomach was desufflated. The patient tolerated the procedure well. FINDINGS: Squamocolumnar junction 40 cm from the incisors. Diaphragmatic hiatus at 40 cm. Hill grade 2 lower esophageal valve. LA grade B erosive esophagitis. No active duodenitis. Chronic gastritis with recent bleed Acute superficial gastric ulcer with recent bleed, less than 3 mm Tertiary contractions throughout the esophagus consistent with presbyesophagus RECOMMENDATIONS: 1. Omeprazole 40 mg twice a day for 2 weeks.
--- NOTE | 2021-02-17 09:12 | P.PCN ---
Date of Procedure: 02/17/21 Description of Procedure: PREOPERATIVE DIAGNOSIS: Personal history of colon polyps Colonoscopy screening POSTOPERATIVE DIAGNOSIS: Tubular adenoma descending colon Tubular adenoma transverse colon Tubular adenoma sigmoid colon Cecal diverticulosis Sigmoid diverticulosis OPERATION: Colonoscopy to the ileocecal valve and appendiceal orifice, cecum Colonoscopy with hot snare polypectomy Colonoscopy with cold forceps biopsy SURGEON: Magda Rivera MD. ANESTHESIA: MAC. INDICATIONS: The patient is an 60-year-old male who presents personal history of colon polyps. Last colonoscopy over 5 years. Benefits and risks were described and informed consent was obtained. DESCRIPTION OF PROCEDURE: The patient had undergone Sutab prep. The patient had been brought into the operating room and laid in the left lateral decubitus position. After adequate intravenous sedation, the rectum was examined with 2% lidocaine jelly. The prostate was unremarkable. No external hemorrhoids were encountered. The rectal tone was within normal limits. No lesions were palpated in the rectal vault. An Olympus colonoscope was advanced until the cecum, ileocecal valve and appendiceal orifice were clearly viewed. The prep was excellent. Severe cecal diverticulosis was found without diverticulitis. Sigmoid diverticulosis was encountered. Colonic polyps were found and removed. No evidence of focal colitis was found. Retroflexion of the scope demonstrated grade 1 internal hemorrhoids without active bleeding or inflammation. The colon was desufflated. The patient had tolerated the procedure well. Withdrawal time was over 6 minutes. FINDINGS: Aronchick preparation quality scale 1 (1-5) Internal hemorrhoids, grade 1 No external hemorrhoids No arteriovenous malformations. Severe cecal diverticulosis Sigmoid diverticulosis Removal of 3 polyps: - Snare polypectomy 25 cm from the anal verge, 5 mm tubulovillous adenoma polyp. - Cold forceps biopsy at 30 cm from the anal verge, 4 mm polyp. - Cold forceps biopsy at mid transverse colon, 5 mm polyp. No focal colitis. RECOMMENDATIONS: Reviewed colonoscopy 3 years, 2023 Plan - Discharge Summary Discharge Rx Participant: No New Discharge Prescriptions: New Omeprazole [PriLOSEC] 40 mg PO BID #28 cap Continue Cyclobenzaprine [Flexeril] 10 mg PO TID PRN PRN Reason: Muscle Pain Metoprolol Tartrate [Lopressor] 100 mg PO BID Hydrocodone/Acetaminophen [[place] 10-325] 1 tab PO QID PRN PRN Reason: Pain cloNIDine HCL [Catapres] 0.1 mg PO BID amLODIPine BESYLATE 10 mg PO QAM Discharge Medication List Cyclobenzaprine [Flexeril] 10 mg PO TID PRN 07/09/19 [History] Hydrocodone/Acetaminophen [[place] 10-325] 1 tab PO QID PRN 06/09/20 [History] Metoprolol Tartrate [Lopressor] 100 mg PO BID 06/09/20 [History] amLODIPine BESYLATE 10 mg PO QAM 09/24/20 [History] cloNIDine HCL [Catapres] 0.1 mg PO BID 09/24/20 [History] Omeprazole [PriLOSEC] 40 mg PO BID #28 cap 02/17/21 [Rx] Follow up Appointment(s)/Referral(s): Magda Rivera MD [STAFF PHYSICIAN] - 02/25/21 Patient Instructions/Handouts: *[facility] - (Anesthesia) Endoscopy Discharge Instructions, Colonoscopy (DC), Upper Endoscopy (DC), Peptic Ulcer (DC), Diverticulosis Diet (GEN), Diverticulosis (DC), Colorectal Polyps (DC) Activity/Diet/Wound Care/Special Instructions: Repeat colonoscopy 3 years, 2023. New prescription at local pharmacy. Discharge Disposition: HOME SELF-CARE
[2021-02-17 09:26] VITALS: BP 138/89; PULSE 89; RESP 17
== END | disposition home or self-care (01) ==
LOC: ORWHC2ENDO 07:24
PROVIDERS: ATTEND Surgery Plastic and Reconstructive Surgery
DX: K29.70 Gastritis, unspecified, without bleeding (principal); K31.9 Disease of stomach and duodenum, unspecified; K21.9 Gastro-esophageal reflux disease without esophagitis; Z87.11 Personal history of peptic ulcer disease; Z12.11 Encounter for screening for malignant neoplasm of colon; D12.3 Benign neoplasm of transverse colon; K63.5 Polyp of colon; K22.8 Other specified diseases of esophagus; K57.30 Diverticulosis of large intestine without perforation or abscess without bleeding; K64.0 First degree hemorrhoids; K25.3 Acute gastric ulcer without hemorrhage or perforation; Z86.010 Personal history of colon polyps; I10 Essential (primary) hypertension; E78.5 Hyperlipidemia, unspecified; M50.10 Cervical disc disorder with radiculopathy, unspecified cervical region; M19.90 Unspecified osteoarthritis, unspecified site; Z82.49 Family history of ischemic heart disease and other diseases of the circulatory system; Z80.42 Family history of malignant neoplasm of prostate; Z79.899 Other long term (current) drug therapy; Z87.891 Personal history of nicotine dependence; Z88.1 Allergy status to other antibiotic agents; Z88.2 Allergy status to sulfonamides; Z88.8 Allergy status to other drugs, medicaments and biological substances
CPT/HCPCS: 88305; 45380; 45385; 43239; J2001; J2704

== ENCOUNTER 2021-04-14 10:06 | Day surgery (SDC) | payer BC ==
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
[2021-04-14 10:33] VITALS: TEMP 97
[2021-04-14] MEDS ORDERED: LACTATED RINGERS 1,000 ML IV ONE (10:36)
[2021-04-14] MEDS ORDERED: LIDOCAINE 1% INJ 10MG/ML (20 ML MDV) ONE (11:09)
[2021-04-14] MEDS ORDERED: PROPOFOL 10 MG/ML 20 ML VIAL IV ONE (11:09)
--- NOTE | 2021-04-14 11:20 | P.PCN ---
Date of Procedure: 04/14/21 Description of Procedure: PREOPERATIVE DIAGNOSIS: Gastritis with bleeding Epigastric abdominal pain Gastroesophageal reflux disease POSTOPERATIVE DIAGNOSIS: Gastritis Gastroesophageal reflux disease OPERATION: Esophagogastroduodenoscopy with biopsies along antrum. SURGEON: Magda Rivera MD ANESTHESIA: MAC. INDICATIONS: The patient is a 60-year-old male who presents with a history of reflux disease. Benefits and risks of the procedure were described. Informed consent was obtained. DESCRIPTION: The patient was brought into the endoscopy suite and laid in the left lateral decubitus position. An Olympus gastroscope was passed along the posterior oropharynx down to the distal esophagus where the squamocolumnar junction was encountered at 41 cm from the incisors. The stomach was entered and no bile reflux was found. Additional findings are listed below. Biopsies with cold forceps were obtained of the antrum. The first through third portion of the duodenum was examined and unremarkable. Retroflexion of the scope confirmed Hill grade 2 lower esophageal valve. The squamocolumnar junction demonstrated LA grade B erosive esophagitis. The stomach was desufflated. The patient tolerated the procedure well. FINDINGS: Squamocolumnar junction 41 cm from the incisors. Diaphragmatic hiatus at 41 cm. Hill grade 2 lower esophageal valve. LA grade B erosive esophagitis. No active duodenitis. Chronic gastritis RECOMMENDATIONS: 1. Upper endoscopy as needed. 2. Continue omeprazole 40 mg daily Plan - Discharge Summary New Discharge Prescriptions: New Omeprazole [PriLOSEC] 40 mg PO DAILY #90 cap Continue Cyclobenzaprine [Flexeril] 10 mg PO TID PRN PRN Reason: Muscle Pain Metoprolol Tartrate [Lopressor] 100 mg PO BID Hydrocodone/Acetaminophen [Dana 10-325] 1 tab PO QID PRN PRN Reason: Pain cloNIDine HCL [Catapres] 0.1 mg PO BID amLODIPine BESYLATE 10 mg PO QAM Omeprazole [PriLOSEC] 40 mg PO BID #28 cap Discharge Medication List Cyclobenzaprine [Flexeril] 10 mg PO TID PRN 07/09/19 [History] Hydrocodone/Acetaminophen [Dana 10-325] 1 tab PO QID PRN 06/09/20 [History] Metoprolol Tartrate [Lopressor] 100 mg PO BID 06/09/20 [History] amLODIPine BESYLATE 10 mg PO QAM 09/24/20 [History] cloNIDine HCL [Catapres] 0.1 mg PO BID 09/24/20 [History] Omeprazole [PriLOSEC] 40 mg PO BID #28 cap 02/17/21 [Rx] Omeprazole [PriLOSEC] 40 mg PO DAILY #90 cap 04/14/21 [Rx] Follow up Appointment(s)/Referral(s): Magda Rivera MD [STAFF PHYSICIAN] - 04/20/21 Patient Instructions/Handouts: Gastritis (DC), Diet for Stomach Ulcers and Gastritis (ED) Activity/Diet/Wound Care/Special Instructions: Continue Prilosec at home Discharge Disposition: HOME SELF-CARE
[2021-04-14 11:23] VITALS: RESP 16
[2021-04-14 12:16] VITALS: BP 130/79; PULSE 79
== END 2021-04-14 12:18 | disposition home or self-care (01) ==
LOC: ORWHC2ENDO 10:06
PROVIDERS: ATTEND Surgery Plastic and Reconstructive Surgery
DX: K21.9 Gastro-esophageal reflux disease without esophagitis (principal); K29.50 Unspecified chronic gastritis without bleeding; I10 Essential (primary) hypertension; E78.5 Hyperlipidemia, unspecified; M19.90 Unspecified osteoarthritis, unspecified site; Z87.891 Personal history of nicotine dependence; Z79.899 Other long term (current) drug therapy; Z88.0 Allergy status to penicillin; Z88.2 Allergy status to sulfonamides
CPT/HCPCS: 88305; 43239; J2001; J2704

== ENCOUNTER → 2021-12-27 | Outpatient (CLI) | payer MEDICARE ==
--- NOTE | 2021-12-28 07:56 | XR ---
EXAMINATION TYPE: XR sacrum coccyx DATE OF EXAM: 12/27/2021 COMPARISON: CT dated 01/26/2015 INDICATION: Pain, history of broken sacrum/coccyx. TECHNIQUE: 3 views of the sacrum and coccyx FINDINGS: Slight backward position of the second coccygeal segment in relation to the first segment, possibly c hronic, of unknown clinical significance. No definite acute sacral or coccygeal fracture identified o therwise. Subtle nondisplaced fracture cannot be excluded. Degenerative changes of the lower lumbar s pine and sacroiliac joints. Bilateral pelvic phleboliths rather than urinary calculi. IMPRESSION: No obvious sacral or coccygeal fracture identified however a subtle nondisplaced fracture cannot be e xcluded. Further CT scan or bone scan assessment can be considered if clinically required.
== END | disposition home or self-care (01) ==
LOC: RADXRMAIN 16:54
PROVIDERS: ATTEND Family Medicine
DX: M53.3 Sacrococcygeal disorders, not elsewhere classified (principal)
CPT/HCPCS: 72220

== ENCOUNTER → 2022-01-05 | Outpatient (CLI) | payer MEDICARE ==
--- NOTE | 2022-01-05 14:56 | NM ---
EXAMINATION TYPE: NM bone 3 phase DATE OF EXAM: 01/05/2022 COMPARISON: CT dated 06/11/2020 HISTORY: M 53.3 Triple phase bone scintigraphy was performed following the injection of 23.7 mCi Tc 99m MDP. Immedia te images and 5.25 hours post injection images acquired. FINDINGS: No abnormal blood flow or blood pool activity. There is uptake at the sternoclavicular joints, shoulders, knees, feet which is likely degenerative. Uptake at the costovertebral angle of the left ninth rib is also degenerative as noted on CT. Soft ti ssue uptake is normal. Uptake in the maxilla and mandible likely due to periodontal disease. There is no significant abnormal accumulation of radiotracer to suggest metastatic disease to the bon e. IMPRESSION: There is costovertebral angle osteoarthritis No scintigraphic evidence of osseous metastatic disease.
== END | disposition home or self-care (01) ==
LOC: RADNMMAIN 07:22
PROVIDERS: ATTEND Family Medicine
DX: M53.3 Sacrococcygeal disorders, not elsewhere classified (principal)
CPT/HCPCS: 78315; A9503

== ENCOUNTER 2022-02-14 13:07 | Emergency (ER) | payer MEDICARE ==
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
[2022-02-14] MEDS ORDERED: BEBTELOVIMAB (EUA) 175 MG/2 ML VIAL IV ONE (18:30)
[2022-02-14 18:32] VITALS: TEMP 98.9
[2022-02-14 20:25] VITALS: BP 134/94; PULSE 94; RESP 18
== END 2022-02-14 20:09 | disposition home or self-care (01) ==
LOC: EC 13:07
DX: U07.1 COVID-19 (principal); K21.9 Gastro-esophageal reflux disease without esophagitis; E78.5 Hyperlipidemia, unspecified; I10 Essential (primary) hypertension; M19.90 Unspecified osteoarthritis, unspecified site; Z88.1 Allergy status to other antibiotic agents; Z88.2 Allergy status to sulfonamides; Z90.49 Acquired absence of other specified parts of digestive tract; Z85.828 Personal history of other malignant neoplasm of skin; Z87.891 Personal history of nicotine dependence
CPT/HCPCS: 99284; 87635; Q0222

== ENCOUNTER → 2022-07-29 | Outpatient (CLI) | payer MEDICARE ==
--- NOTE | 2022-07-29 14:35 | FL ---
EXAMINATION TYPE: FL barium swallow DATE OF EXAM: 07/29/2022 COMPARISON: None HISTORY: Raw throat since covid x5 months TECHNIQUE: A single contrast UGI study is performed. FINDINGS: Fluoroscopy time: 6 seconds Images: 85 Esophagus dilates to normal caliber and is normal contour to the gastroesophageal junction. Gastroeso phageal junction opens to normal caliber. No intraluminal or extramural defects are evident. IMPRESSIONS: 1. Unremarkable esophagram
== END | disposition home or self-care (01) ==
LOC: RADUSWWP 10:38
PROVIDERS: ATTEND Otolaryngology
DX: K21.9 Gastro-esophageal reflux disease without esophagitis (principal)
CPT/HCPCS: 74220

== ENCOUNTER → 2022-11-17 | Outpatient (CLI) | payer MEDICARE ==
--- NOTE | 2022-11-17 20:19 | MR ---
EXAMINATION TYPE: MR brain wo con DATE OF EXAM: 11/17/2022 COMPARISON: CT brain February 06, 2020 HISTORY: AMNESIA TECHNIQUE: Multiplanar, multisequence imaging of the brain and brainstem is performed without IV cont rast. FINDINGS: Diffusion weighted images demonstrate no evidence of a recent infarct or other diffusion abnormality. There is no extraaxial fluid collection or significant white matter signal abnormality. The ventricu lar system and cisternal spaces are normal in size and appearance. The brain volume is age appropria te. Suspect small posterior left-sided arachnoid cyst axial image 10 posterior to the cerebellum krupa uring roughly 1.3 x 1.2 cm. Midline structures demonstrate normal morphology. The craniocervical junction appears within normal limits. Normal vascular flow voids are present. Dominant left vertebral artery redemonstrated The vis ualized sinuses are clear and the globes are intact. IMPRESSION: Small posterior fossa arachnoid cyst. No acute findings are evident.
== END | disposition home or self-care (01) ==
LOC: RADMRIMAIN 10:33
PROVIDERS: ATTEND Psychiatry & Neurology Pain Medicine
DX: G93.0 Cerebral cysts (principal); R41.3 Other amnesia
CPT/HCPCS: 70551

== ENCOUNTER → 2023-05-19 | Outpatient (CLI) | payer MEDICARE ==
--- NOTE | 2023-05-20 13:34 | PE ---
EXAMINATION TYPE: PET CT fusion whole body DATE OF EXAM: 05/19/2023 CLINICAL INDICATION:Male, 62 years old with history of Z780.9 G89.3 C06.9 C40.10; TECHNIQUE: Following the intravenous administration of 12.0 mCi of F-18 FDG, whole body images are performed from the skull base to the midthigh. Images are reviewed on the computer in the coronal, a xial, and sagittal planes. Reconstructed rotating images are created on independent workstation and reviewed on the computer. A non-contrast CT is performed in conjunction with the PET scan. Glucose level mg/dL COMPARISON: CT None, PET/CT 11/16/2019, FINDINGS: Mediastinal SUV mean is 1.7. Hepatic parenchyma SUV mean is 2.4. SKULL BASE AND NECK: No suspicious radiotracer activity. CHEST, MEDIASTINUM, AND HILAR REGION: No suspicious radiotracer activity. ABDOMEN AND PELVIS: No suspicious radiotracer activity. MUSCULOSKELETAL STRUCTURES: No suspicious radiotracer activity. OTHER CT: Atherosclerosis of the arterial vasculature. The prostate gland is enlarged measuring up to 4.7 cm. Bilateral fat-containing inguinal hernias. IMPRESSION: No suspicious radiotracer activity.
== END | disposition home or self-care (01) ==
LOC: RADPETMAIN 11:17
PROVIDERS: ATTEND Psychiatry & Neurology Neurology
DX: C06.9 Malignant neoplasm of mouth, unspecified (principal); C40.1 Malignant neoplasm of short bones of upper limb; G89.3 Neoplasm related pain (acute) (chronic); Z80.9 Family history of malignant neoplasm, unspecified
CPT/HCPCS: 78816; A9552

== ENCOUNTER → 2023-06-07 | Outpatient (CLI) | payer MEDICARE ==
--- NOTE | 2023-06-08 08:07 | US ---
EXAMINATION TYPE: US scrotum with doppler. Grayscale and color Doppler Duplex imaging performed of nate mahan scrotum. DATE OF EXAM: 06/07/2023 COMPARISON: NONE CLINICAL INDICATION: Male, 62 years old with history of N50.89 OTHER SPECIFIED DISORDERS OF THE MALE GENIT; lump EXAM MEASUREMENTS: TESTICLES: Right Testicle: 4.0 x 2.3 x 3.2 cm Left Testicle: 4.5 x 2.0 x 2.9 cm EPIDIDYMIS HEAD: Right Epididymis: 1.1 x 0.8 x 1.3 cm Cystic area 1.2 x 0.6 x 0.6 cm. Left Epididymis: Complex cystic area 4.7 x 2.4 x 4.6 cm Doppler performed to assess for testicular vascularity; good bilateral color flow and waveforms are s een. There is no evidence of testicular torsion. Presence of hydroceles: no Presence of varicoceles: no IMPRESSION: 1. Complex cystic lesion within the left epididymis measuring up to 4.7 cm and on the right measurin g up to 1.2 cm. Findings likely correlate with patient's palpable abnormality. 2. No evidence for testicular mass. 3. Appropriate arterial and central venous spectral waveforms to the testes.
== END | disposition home or self-care (01) ==
LOC: RADUSWWP 15:42
PROVIDERS: ATTEND Family Medicine
DX: N50.3 Cyst of epididymis (principal); N50.89 Other specified disorders of the male genital organs
CPT/HCPCS: 76870; 93975

== ENCOUNTER → 2023-08-01 | Outpatient (CLI) | payer MEDICARE | LOC: CPPFTMAIN 13:30 | PROVIDERS: ATTEND Family Medicine | DX: J45.20 Mild intermittent asthma, uncomplicated (principal); Z88.2 Allergy status to sulfonamides; Z88.0 Allergy status to penicillin; Z88.8 Allergy status to other drugs, medicaments and biological substances | CPT/HCPCS: 94060; 94726; 94729 ==

== ENCOUNTER → 2023-08-05 | Outpatient (CLI) | payer MEDICARE ==
--- NOTE | 2023-08-06 21:36 | MR ---
EXAMINATION TYPE: MR cervical spine wo con DATE OF EXAM: 08/05/2023 11:25 AM CLINICAL INDICATION:Male, 63 years old with history of R51.9 headache, M50.30 cervical disc generatio n; PHH, prior on synapse, HAs with pressure and pain to head and neck for about 1 month COMPARISON: 03/01/2017. TECHNIQUE: Multi planar, multi sequence imaging was performed utilizing: T1-weighted, T2-weighted, an d turbo inversion recovery imaging of the cervical spine. IV Contrast: (none if empty) FINDINGS: Alignment: The cervical vertebral bodies have preserved heights. Alignment is within normal limits gi milan patient positioning. Bones: Scattered Modic endplate changes with osteophytes and disc space narrowing. Multilevel degener ative disc disease is noted and most pronounced at the C5-C7 vertebral levels. Cord: The spinal cord is unremarkable with regards to their signal intensity and morphology. Discs: Multilevel disc desiccation is present. C2-C3: No significant disc pathology. The spinal canal is patent. Bilateral facet and uncovertebral joint arthropathy are present with mild bilateral neural foraminal stenosis. C3-C4: A disc osteophyte complex is present which minimally narrows the ventral subarachnoid space. Bilateral facet and uncovertebral joint arthropathy are present with moderate right and moderate sev ere left neural foraminal stenosis. C4-C5: No significant disc pathology. The spinal canal is patent. Bilateral facet and uncovertebral joint arthropathy are present with mild to moderate right and moderate left neural foraminal stenosis . C5-C6: No significant disc pathology. The spinal canal is patent. Bilateral facet and uncovertebral joint arthropathy are present with moderate bilateral neural foraminal stenosis. C6-C7: A disc osteophyte complex is present with moderate spinal canal stenosis. Bilateral facet and uncovertebral joint arthropathy are present with moderate to severe bilateral neural foraminal steno sis. C7-T1: No significant disc pathology. The spinal canal is patent. No neural foraminal stenosis. Other: None. IMPRESSION: C6-C7 moderate spinal canal and moderate to severe bilateral neural foraminal stenosis. Cord signal i s maintained.
--- NOTE | 2023-08-06 21:49 | MR ---
EXAMINATION TYPE: MR angio head wo con DATE OF EXAM: 08/05/2023 11:26 AM CLINICAL INDICATION:Male, 63 years old with history of R51.9 headache, M50.30 cervical disc generatio n; PHH, NO prior MRA prior MRI brain on synapse, HAs with pressure and pain to head and neck for abo ut 1 month COMPARISON: 11/17/2022, MRI same day. Technical: 3-D [id number] Axial with MIP reconstruction created on a separate workstation.. IV Contrast: None cc Findings: Vertebral arteries: The vertebral arteries are patent. Vertebral arteries are: Left dominant and atrophic right Basilar artery: The basilar artery is intact. The basilar artery bifurcation is normal. Internal Carotid arteries: The cervical, petrous, cavernous and supraclinoid segments are normal. PEACE: Patent with no evidence of aneurysm. ACOM: Present without evidence of aneurysm. MCA: Patent with no evidence of aneurysm. MELTING OPERATOR: Patent with no evidence of aneurysm. PCOM: Hypoplastic bilaterally. IMPRESSION: No evidence of aneurysm or significant stenosis.
== END | disposition home or self-care (01) ==
LOC: RADMRIMAIN 10:13
PROVIDERS: ATTEND Family Medicine
DX: M99.71 Connective tissue and disc stenosis of intervertebral foramina of cervical region (principal); M48.02 Spinal stenosis, cervical region; M50.30 Other cervical disc degeneration, unspecified cervical region
CPT/HCPCS: 70544; 72141

== ENCOUNTER 2024-08-07 04:21 | Emergency (ER) | payer MEDICARE ==
[2024-08-07 04:29] VITALS: RESP 18; TEMP 97.5
[2024-08-07] MEDS: SODIUM CHLORIDE 0.9% 1,000 ML IV STA (04:51)
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
[2024-08-07 05:05] LABS: Basophils # (A) 0.1 k/uL (0-0.2); Basophils % (A) 1 %; Eosinophils # (A) 0.5 k/uL (0-0.7); Eosinophils % (A) 7 %; HCT 41.7 % (39.0-53.0); HGB 14.2 gm/dL (13.0-17.5); Lymphocytes # (A) 3.1 k/uL (1.0-4.8); Lymphocytes % (A) 43 %; MCH 30.8 pg (25.0-35.0); MCV 90.5 fL (80.0-100.0); Mean Platelet Volume 7.7; Monocytes # (A) 0.4 k/uL (0-1.0); Monocytes % (A) 5 %; Neutrophils % (A) 42 %; Platelet Count 306 k/uL (150-450); RDW 12.9 % (11.5-15.5); WBC 7.2 k/uL (3.8-10.6)
[2024-08-07 05:11] LABS: INR 0.8 (<1.2); Partial Thromboplastin Time 22.1 sec (22.0-30.0); Prothrombin Time 9.6 sec (10.0-12.5)
[2024-08-07 05:12] LABS: ALT 25 U/L (4-49); AST 48 U/L (17-59); African American GFR (CKD) >90 (>60 ml/min/1.73 sqM); Alkaline Phosphatase 109 U/L (38-126); Anion Gap 4 mmol/L; Blood Urea Nitrogen 9 mg/dL (9-20); Calcium 9.2 mg/dL (8.4-10.2); Carbon Dioxide 29 mmol/L (22-30); Chloride 107 mmol/L (98-107); Glucose 95 mg/dL (74-99); Non-African American GFR(CKD) >90 (>60 ml/min/1.73 sqM); Potassium 4.2 mmol/L (3.5-5.1); Sodium 140 mmol/L (137-145); Total Bilirubin 0.4 mg/dL (0.2-1.3); Total Protein 6.4 g/dL (6.3-8.2)
[2024-08-07 06:09] VITALS: BP 129/83; PULSE 84
--- NOTE | 2024-08-07 06:26 | XR ---
ADDENDUM - Added by Davonte Bella MD on 08/07/2024 6:40 AM (-04:00) EXAM: XR Abdomen, 1 View CLINICAL HISTORY: ITS.REASON XR Reason: abdominal pain TECHNIQUE: Frontal supine view of the abdomen/pelvis. COMPARISON: No relevant prior studies available. IMPRESSION: 1. Evaluation for free air limited by supine imaging. 2. Mildly dilated loops of small bowel measuring up to 3.7 within the right hemiabdomen. No visualized transition point detected. If there is further concern for bowel obstruction, consider cross-sectional imaging. 3. Spinal cord stimulator in situ with tip of distal lead at T8. EXAM: XR Abdomen, 1 View CLINICAL HISTORY: ITS.REASON XR Reason: abdominal pain TECHNIQUE: Frontal supine view of the abdomen/pelvis. COMPARISON: No relevant prior studies available. IMPRESSION: 1. Evaluation for free air noted by supine imaging. 2. Mildly dilated loops of small bowel measuring up to 3.7 within the right hemiabdomen. No visualized transition point detected. If there is further concern for bowel obstruction, consider cross-sectional imaging. 3. Spinal cord stimulator in situ with tip of distal lead at T8. <MYCVCSECTION> Communications: 08/07/24 06:39 Call From Sourav Bhakta on 08/07 06:38 (-04:00) 08/07/24 06:55 Verify Receipt Verified receipt with JOY Doherty on 08/07 06: 54 (-04:00)
== END 2024-08-07 06:30 | disposition home or self-care (01) ==
LOC: EC 04:21
CPT/HCPCS: 36415; 74018; 80053; 85025; 85610; 85730; 93005; 96360; 99284

== ENCOUNTER → 2024-08-21 | Day surgery (SDC) | payer MEDICARE ==
[~2024-08-21] MED LIST changes: -LACTATED RINGERS 1,000 ML IV ONE
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
[2024-08-21] MEDS: IV FLUID CONTINUATION 1,000 ML IV ONE (09:24)
[2024-08-21 09:36] VITALS: TEMP 96.9
--- NOTE | 2024-08-21 11:01 | P.PCN ---
Date of Procedure: 08/21/24 Description of Procedure: PREOPERATIVE DIAGNOSIS: Personal history of colon polyps Colonoscopy screening POSTOPERATIVE DIAGNOSIS: Tubular adenoma sigmoid colon Pandiverticulosis Sigmoid diverticulosis Internal hemorrhoids, grade 2 OPERATION: Colonoscopy to the ileocecal valve and appendiceal orifice, cecum Colonoscopy with hot snare polypectomy SURGEON: Magda Rivera MD. ANESTHESIA: MAC. INDICATIONS: The patient is an 64-year-old male who presents personal history of colon polyps. Last colonoscopy 5 years. Benefits and risks were described and informed consent was obtained. DESCRIPTION OF PROCEDURE: The patient had undergone GoLytely prep. The patient had been brought into the operating room and laid in the left lateral decubitus position. After adequate intravenous sedation, the rectum was examined with 2% lidocaine jelly. The prostate was unremarkable. External hemorrhoids were encountered. The rectal tone was within normal limits. No lesions were palpated in the rectal vault. An Olympus colonoscope was advanced until the cecum, ileocecal valve and appendiceal orifice were clearly viewed. The prep was good. Sigmoid diverticulosis with pandiverticulosis was encountered. Abdominal wall pressure was used to advance the scope. Colonic polyps were found and removed. No evidence of focal colitis was found. Retroflexion of the scope demonstrated grade 2 internal hemorrhoids without active bleeding or inflammation. The colon was desufflated. The patient had tolerated the procedure well. Withdrawal time was over 6 minutes. FINDINGS: Aronchick preparation quality scale 2 (1-5) Internal hemorrhoids, grade 2 External hemorrhoids, grade 2. No arteriovenous malformations. Sigmoid diverticulosis with pandiverticulosis Abdominal pressure used to advance the scope Removal of 1 polyps: - Snare polypectomy at mid transverse colon, 5 mm tubulovillous adenoma No focal colitis. RECOMMENDATIONS: Repeat colonoscopy 3 years, 2026. Plan - Discharge Summary Discharge Rx Participant: No New Discharge Prescriptions: Continue Cyclobenzaprine [Flexeril] 10 mg PO QID Metoprolol Tartrate [Lopressor] 100 mg PO BID Hydrocodone/Acetaminophen [[place] 10-325] 1 tab PO QID PRN PRN Reason: Pain amLODIPine BESYLATE 10 mg PO QAM Omeprazole [PriLOSEC] 40 mg PO BID #28 cap Discharge Medication List Cyclobenzaprine [Flexeril] 10 mg PO QID 07/09/19 [History] Hydrocodone/Acetaminophen [[place] 10-325] 1 tab PO QID PRN 06/09/20 [History] Metoprolol Tartrate [Lopressor] 100 mg PO BID 06/09/20 [History] amLODIPine BESYLATE 10 mg PO QAM 09/24/20 [History] Omeprazole [PriLOSEC] 40 mg PO BID #28 cap 02/17/21 [Rx] Follow up Appointment(s)/Referral(s): Magda Rivera MD [STAFF PHYSICIAN] - As Needed Patient Instructions/Handouts: Diverticulosis Diet (GEN), Diverticulosis (GEN), Colorectal Polyps (GEN) Activity/Diet/Wound Care/Special Instructions: Repeat colonoscopy in 3 years, 2026 Discharge Disposition: HOME SELF-CARE
[2024-08-21 11:06] VITALS: BP 116/70; PULSE 70; RESP 14
== END | disposition home or self-care (01) ==
LOC: ORWHC2ENDO 09:16
PROVIDERS: ATTEND Surgery Plastic and Reconstructive Surgery
DX: Z12.11 Encounter for screening for malignant neoplasm of colon (principal); K63.5 Polyp of colon; K57.30 Diverticulosis of large intestine without perforation or abscess without bleeding; K64.1 Second degree hemorrhoids; K64.4 Residual hemorrhoidal skin tags; Z86.0100 Personal history of colon polyps, unspecified; K21.9 Gastro-esophageal reflux disease without esophagitis; E78.5 Hyperlipidemia, unspecified; I10 Essential (primary) hypertension; M19.90 Unspecified osteoarthritis, unspecified site; Z79.899 Other long term (current) drug therapy; Z88.0 Allergy status to penicillin; Z88.2 Allergy status to sulfonamides; Z88.8 Allergy status to other drugs, medicaments and biological substances; Z87.891 Personal history of nicotine dependence; Z80.42 Family history of malignant neoplasm of prostate
CPT/HCPCS: 88305; 45385; J2003; J2704

== ENCOUNTER 2025-04-22 05:24 | Emergency (ER) | payer MEDICARE ==
[2025-04-22 06:08] LABS: Basophils # (A) 0.14 10*3/uL (0.00-0.10); Basophils % (A) 1.0 %; Eosinophils # (A) 0.79 10*3/uL (0.04-0.35); Eosinophils % (A) 5.5 %; HCT 42.3 % (39.6-50.0); HGB 14.5 g/dL (13.0-17.0); Lymphocytes # (A) 2.73 10*3/uL (0.90-5.00); Lymphocytes % (A) 19.1 %; MCH 30.4 pg (27.0-32.0); MCHC 34.3 g/dL (32.0-37.0); MCV 88.7 fL (80.0-97.0); Monocytes # (A) 1.68 10*3/uL (0.20-1.00); Monocytes % (A) 11.7 %; Neutrophils # (A) 8.86 10*3/uL (1.80-7.70); Neutrophils % (A) 61.9 %; Platelet Count 315 10*3/uL (140-440); RBC 4.77 10*6/uL (4.40-5.60); RDW 12.2 % (11.5-14.5); WBC 14.31 10*3/uL (4.50-10.00)
--- NOTE | 2025-04-22 06:26 | XR ---
EXAM: XR Chest, 2 Views CLINICAL HISTORY: ITS.REASON XR Reason: difficulty breathing TECHNIQUE: Frontal and lateral views of the chest. COMPARISON: 03/28/2018 FINDINGS: Lungs: Lungs are underinflated. No consolidation. Pleural space: Unremarkable. Mediastinum: Unremarkable. Normal mediastinal contour. Bones/joints: No acute findings. Tubes, lines and devices: Neurostimulator is new, reaching midthoracic level. IMPRESSION: No acute findings in the chest.
[2025-04-22 06:27] LABS: ALT 41 U/L (4-49); African American GFR (CKD) >90 (>60 ml/min/1.73 sqM); Anion Gap 11 mmol/L; Blood Urea Nitrogen 9 mg/dL (9-20); Calcium 9.5 mg/dL (8.4-10.2); Carbon Dioxide 24 mmol/L (22-30); Chloride 102 mmol/L (98-107); Glucose 102 mg/dL (74-99); Non-African American GFR(CKD) >90 (>60 ml/min/1.73 sqM); Sodium 137 mmol/L (137-145)
[2025-04-22 06:28] LABS: AST 46 U/L (17-59); Albumin 4.2 g/dL (3.5-5.0); Alkaline Phosphatase 173 U/L (38-126); Potassium 5.2 mmol/L (3.5-5.1); Total Protein 7.2 g/dL (6.3-8.2)
[2025-04-22 06:43] LABS: RSV Not Detected (Not Detectd)
[2025-04-22 06:50] LABS: INR 0.8 (<1.2); Partial Thromboplastin Time 22.1 sec (22.0-30.0); Prothrombin Time 9.5 sec (10.0-12.5)
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
[2025-04-22] MEDS: HYDROmorphone 0.5 MG/0.5 ML SYRINGE IVP STA (08:01)
[2025-04-22] MEDS: IPRATROPIUM-ALBUTEROL 3 ML NEB INHALATION STA (08:50)
--- NOTE | 2025-04-22 10:43 | CT ---
EXAMINATION TYPE: CT chest angio for PE DATE OF EXAM: 04/22/2025 COMPARISON: CLINICAL INDICATION: Male, 64 years old with history of pain,sob; PHH, Pain, SOB, SOB or PAIN TECHNIQUE: Ct angiogram of the chest performed with without and with IV Contrast, patient injected with 100 ml m L of Isovue 370. MIP images are created and reviewed. CT DLP: 379.[address] CTDI: mGy Automated exposure control for dose reduction was used. FINDINGS: LUNGS: The lungs are grossly clear, there is no concerning parenchymal mass or nodule identified. T here is no pleural effusion or pneumothorax seen. The tracheobronchial tree is patent. MEDIASTINUM: There is satisfactory enhancement of the pulmonary artery and its branches, there is no CT evidence for pulmonary embolism. There are no greater than 1 cm hilar or mediastinal lymph nodes. No pericardial effusion is seen. HEART: Size within normal limits. No significant coronary artery calcifications. OTHER: No additional significant abnormality is seen. IMPRESSION: EXAMINATION TYPE: CT chest angio for PE DATE OF EXAM: 04/22/2025 10:14 AM COMPARISON: None. CLINICAL INDICATION: Male, 64 years old with history of pain,sob, Pain, SOB, TECHNIQUE: Axial CT was performed with sagittal and coronal reformats. 3D reconstruction and/or MIP imaging was also performed on a separate workstation. IV CONTRAST: without and with IV Contrast, patient injected with 100 ml mL of Isovue 370. (None if em pty) CT DLP: 379.6 mGycm, Automated exposure control for dose reduction was used. FINDINGS: PULMONARY ARTERIES: The pulmonary arteries and their major tributaries are patent. I do not see christiano dence for sizable filling defect to suggest pulmonary embolic process. LUNGS: Scattered pulmonary nodules are noted the largest is seen within the right upper lobe measurin g 1.6 cm. The nodules appear to be mildly spiculated and may be related to metastatic disease. Metast atic workup advised. Small effusions and compressive atelectasis seen. Right paratracheal adenopathy measuring 1.4 cm. MEDIASTINUM: Thoracic aorta is of normal caliber,however, evaluation is limited given timing of the contrast bolus. If there is concern for thoracic aortic pathology consider TRUDY. Correlate clinicall y. No evidence for mediastinal mass. Right paratracheal lymph node measuring 1.4 cm. HEART: Size within normal limits. No significant coronary artery calcifications. HILAR STRUCTURES: No evidence for mass. No hilar lymph nodes greater than 1 cm. UPPER ABDOMEN: No significant abnormality is seen. IMPRESSION: 1. No evidence for Pulmonary embolism at this time. 2. Pulmonary nodules are suspicious for metastatic disease. Appropriate workup advised. Follow-up recommendations for incidental pulmonary nodules are per [employer] or [employer]. [facility], , 04/22/2025 10:41 AM
[2025-04-22] MEDS: SODIUM CHLORIDE 0.9% 1,000 ML IV ONE (11:47)
[2025-04-22] MEDS: METOPROLOL TARTRATE 5 MG/5 ML VIAL IVP STA ×2 (11:48→12:23)
[2025-04-22] MEDS: KETOROLAC 15 MG/ML 1 ML VIAL IVP STA (12:22)
[2025-04-22 12:27] VITALS: TEMP 98
[2025-04-22 12:57] VITALS: BP 161/96; PULSE 113; RESP 16
== END 2025-04-22 12:57 | disposition home or self-care (01) ==
LOC: EC 05:24
DX: J40 Bronchitis, not specified as acute or chronic (principal); Z87.891 Personal history of nicotine dependence; Z88.0 Allergy status to penicillin; Z88.1 Allergy status to other antibiotic agents; Z88.2 Allergy status to sulfonamides; Z88.8 Allergy status to other drugs, medicaments and biological substances
CPT/HCPCS: 36415; 94640; 93005; 85379; 80053; 84484; 85025; 85610; 85730; 87636; 71046; 71275; 99285; 96374; 96375 ×2; 96376; 96361; J1885; J1171; Q9967; J0616

== ENCOUNTER → 2025-05-01 | Outpatient (CLI) | payer MEDICARE ==
--- NOTE | 2025-05-01 08:19 | US ---
EXAMINATION TYPE: US abdomen complete DATE OF EXAM: 05/01/2025 COMPARISON: PET CT - 05/19/2023 US Liver - 10/15/2018 CLINICAL INDICATION: Male, 64 years old with history of R14.0 ABDOMINAL DISTENSION (GASEOUS); Lung di sease? Causing vomiting TECHNIQUE: Grayscale and color Doppler imaging of the abdomen was performed. FINDINGS: EXAM MEASUREMENTS: Liver Length: 16.2 cm Gallbladder Wall: 0.3 cm CBD: 0.5 cm, color Doppler imaging was utilized to isolate the common bile duct for measurement. Spleen: 11.4 x 4.2 x 4.1 cm Right Kidney: 10.6 x 6.2 x 5.9 cm Left Kidney: 10.8 x 6.3 x 5.2 cm SHIRT TURNER NOTES: Pancreas: Obscured by bowel gas Liver: Limited visualization due to overlying bowel gas and patient tolerance Gallbladder: Limited visualization due to overlying bowel gas and patient tolerance Evidence for sonographic Fried's sign: No CBD: wnl Spleen: wnl Right Kidney: wnl, No hydronephrosis, calculi or masses seen Left Kidney: wnl, No hydronephrosis, calculi or masses seen Upper IVC: Obscured by overlying bowel gas Abd Aorta: Obscured by overlying bowel gas IMPRESSION: 1. No evidence for acute process. 2. Hepatic steatosis. [facility], , 05/01/2025 8:17 AM
== END | disposition home or self-care (01) ==
LOC: RADUSWWP 07:34
PROVIDERS: ATTEND Family Medicine
DX: K76.0 Fatty (change of) liver, not elsewhere classified (principal)
CPT/HCPCS: 76700

== ENCOUNTER 2025-05-03 03:14 | Inpatient (IN) | payer MEDICARE ==
[2025-05-03] MEDS: SODIUM CHLORIDE 0.9% 1,000 ML IV ONE (04:00)
[2025-05-03] MEDS: methylPREDNISolone SOD SUCCI 125 MG/2 ML VIAL IV STA (04:01)
[2025-05-03 04:06] LABS: Basophils # (A) 0.09 10*3/uL (0.00-0.10); Basophils % (A) 0.5 %; Eosinophils # (A) 0.01 10*3/uL (0.04-0.35); Eosinophils % (A) 0.1 %; HCT 42.5 % (39.6-50.0); HGB 14.4 g/dL (13.0-17.0); Lymphocytes # (A) 2.10 10*3/uL (0.90-5.00); Lymphocytes % (A) 11.1 %; MCH 31.0 pg (27.0-32.0); MCHC 33.9 g/dL (32.0-37.0); MCV 91.6 fL (80.0-97.0); Monocytes # (A) 2.07 10*3/uL (0.20-1.00); Monocytes % (A) 11.0 %; Neutrophils # (A) 14.41 10*3/uL (1.80-7.70); Neutrophils % (A) 76.2 %; Platelet Count 608 10*3/uL (140-440); RBC 4.64 10*6/uL (4.40-5.60); RDW 12.5 % (11.5-14.5); WBC 18.89 10*3/uL (4.50-10.00)
[2025-05-03] MEDS: IPRATROPIUM-ALBUTEROL 3 ML NEB INHALATION STA ×2 (04:10→07:48)
[2025-05-03 04:17] LABS: ALT 248 U/L (4-49); AST 126 U/L (17-59); African American GFR (CKD) >90 (>60 ml/min/1.73 sqM); Albumin 3.5 g/dL (3.5-5.0); Alkaline Phosphatase 392 U/L (38-126); Anion Gap 13 mmol/L; Blood Urea Nitrogen 24 mg/dL (9-20); Calcium 9.1 mg/dL (8.4-10.2); Carbon Dioxide 22 mmol/L (22-30); Chloride 103 mmol/L (98-107); Glucose 78 mg/dL (74-99); Magnesium 2.3 mg/dL (1.6-2.3); Non-African American GFR(CKD) 83 (>60 ml/min/1.73 sqM); Potassium 5.1 mmol/L (3.5-5.1); Sodium 138 mmol/L (137-145); Total Protein 6.8 g/dL (6.3-8.2)
[2025-05-03 04:26] LABS: INR 0.9 (<1.2); NT-Pro-B-Type Natriuretic Pept 362 pg/mL; Partial Thromboplastin Time 20.4 sec (22.0-30.0); Prothrombin Time 10.2 sec (10.0-12.5)
[2025-05-03] MEDS ORDERED: VANCOMYCIN IV PER PHARMACY 1 EACH MISC MISCELLANE PRN (04:27)
[2025-05-03 05:01] LABS: RSV Not Detected (Not Detectd)
[2025-05-03] MEDS: CEFEPIME 2 GM in SODIUM CHLORIDE 0.9% 100 ML IVPB SCH (05:17)
[2025-05-03] MEDS: LACTATED RINGERS 1,000 ML IV ONE (05:17)
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
[2025-05-03] MEDS: VANCOMYCIN 1,500 MG in SODIUM CHLORIDE 0.9% 500 ML 500 ML IVPB ONE (05:51)
[2025-05-03] MEDS: LACTATED RINGERS 1,000 ML IV SCH (05:52)
--- NOTE | 2025-05-03 06:11 | XR ---
EXAM: XR Chest, 1 View CLINICAL HISTORY: ITS.REASON XR Reason: cough TECHNIQUE: Frontal view of the chest. COMPARISON: No relevant prior studies available. FINDINGS: Lungs: Left lower lobe consolidation. Pleural space: Unremarkable. No pneumothorax. Heart: Unremarkable. No cardiomegaly. Mediastinum: Unremarkable. Normal mediastinal contour. Bones/joints: Unremarkable. No acute fracture. IMPRESSION: Left lower lobe consolidation.
--- NOTE | 2025-05-03 06:21 | CT ---
EXAM: CT Abdomen and Pelvis With Intravenous Contrast CLINICAL HISTORY: ITS.REASON CT Reason: abd distention TECHNIQUE: Axial computed tomography images of the abdomen and pelvis with intravenous contrast. CTDI is 12.8 mGy and DLP is 546.2 mGy-cm. This CT exam was performed using one or more of the following dose reduction techniques: automated exposure control, adjustment of the mA and/or kV according to patient size, and/or use of iterative reconstruction technique. COMPARISON: No relevant prior studies available. FINDINGS: Lung bases: 7.7 x 5.5 cm air-fluid collection within the left lower tez thorax. Compressive atelectasis of the left lower lobe. 1.1 cm cavitary lesion right middle lobe. ABDOMEN: Liver: Unremarkable. No mass. Gallbladder and bile ducts: Unremarkable. No calcified stones. No ductal dilation. Pancreas: Unremarkable. No mass. No ductal dilation. Spleen: Unremarkable. No splenomegaly. Adrenals: Unremarkable. No mass. Kidneys and ureters: Unremarkable. No solid mass. No hydronephrosis. Stomach and bowel: Diverticulosis without evidence of diverticulitis. No obstruction. PELVIS: Appendix: No findings to suggest acute appendicitis. Bladder: Unremarkable. No mass. Reproductive: Unremarkable as visualized. ABDOMEN and PELVIS: Intraperitoneal space: Unremarkable. No free air. No significant fluid collection. Bones/joints: No acute fracture. No dislocation. Soft tissues: Unremarkable. Vasculature: Unremarkable. No abdominal aortic aneurysm. Lymph nodes: Unremarkable. No enlarged lymph nodes. IMPRESSION: No acute findings in the abdomen or pelvis. 7.7 cm left lower lobe empyema better evaluated on the dedicated CT of the chest.
--- NOTE | 2025-05-03 06:35 | CT ---
EXAM: CT Angiography Chest With Intravenous Contrast CLINICAL HISTORY: ITS.REASON CT Reason: eval for PE TECHNIQUE: Axial computed tomographic angiography images of the chest with intravenous contrast. CTDI is 17.8 mGy and DLP is 1529 mGy-cm. This CT exam was performed using one or more of the following dose reduction techniques: automated exposure control, adjustment of the mA and/or kV according to patient size, and/or use of iterative reconstruction technique. MIP reconstructed images were created and reviewed. COMPARISON: No relevant prior studies available. FINDINGS: Exam limited secondary to patient respiratory motion. Pulmonary arteries: Patchy nodular opacities within the right upper lobe. No large central pulmonary embolus. Nodular opacity within the right middle lobe. Aorta: No acute findings. No thoracic aortic aneurysm. Lungs: 10.8 x 5.9 x 16 cm left lower lobe air-fluid collection with compressive atelectasis of the left lower lobe. Exam somewhat limited secondary to patient respiratory motion. No mass. Pleural space: Unremarkable. No significant effusion. No pneumothorax. Heart: Unremarkable. No cardiomegaly. No significant pericardial effusion. No evidence of RV dysfunction. Bones/joints: No acute fracture. No dislocation. Soft tissues: Unremarkable. Lymph nodes: Unremarkable. No enlarged lymph nodes. IMPRESSION: 16 cm left lower lobe empyema Exam limited secondary to patient respiratory motion No large central pulmonary embolus Nodular opacity scattered throughout the right upper and middle lobes likely of infectious or inflammatory etiology.
[2025-05-03] MEDS ORDERED: NALOXONE 0.4 MG/ML 1 ML VIAL IV PRN (06:49)
[2025-05-03] MEDS ORDERED: IPRATROPIUM-ALBUTEROL 3 ML NEB INHALATION PRN (08:12)
[2025-05-03] MEDS: ENOXAPARIN 40 MG/0.4 ML SYRINGE SQ SCH (09:02)
[2025-05-03] MEDS: BENZONATATE 100 MG CAP PO SCH (09:02)
--- NOTE | 2025-05-03 10:42 | P.CNPUL ---
History of Present Illness Consult date: 05/03/25 Requesting physician: Mynor Yeboah Reason for consult: other (Hemoptysis) Chief complaint: Coughing up blood History of present illness: This is a very pleasant 64-year-old male patient with a known history of hyperlipidemia, gastroesophageal reflux disease, skin cancer of the thumb with previous surgery and radiation in 2017, former smoker. He has been having issues with cough and congestion for approximately 1 month now. He had been treated with antibiotics and steroids in the outpatient setting without much improvement. He was seen here in the ER in April 22 and given a Z-Rajesh. He co ntinued with significant cough and phlegm production. He states the phlegm taste very metallic like and gross. He came back to the emergency room early this morning. Chest x-ray reveals a left lower lobe consolidation. ET scan of the chest reveals a 16 cm left lower lobe empyema. Nodular opacities scattered throughout the right upper and middle lobes likely infectious or inflammatory. No evidence of pulmonary embolism. White count 18.8. Hemoglobin 14.4. Platelets 608. D-dimer 1.02. Sodium 138. Potassium 5.1. Bicarb 22. BUN 24. Creatinine 0.96. Glucose 78. AST 126. ALT 248. Troponin negative x 1. proBNP 362. Viral screen negative for influenza A/B, RSV, COVID. He is seen in consultation in the emergency department. He is currently sitting up in a chair. He is afebrile. Hemodynamically stable. Maintaining O2 saturations in the low 90s on 5 L/min per nasal cannula. Review of Systems REVIEW OF SYSTEMS: CONSTITUTIONAL: Denies any recent significant weight loss or weight gain. EYES: Denies change in vision. EARS, NOSE, MOUTH, THROAT: Denies headaches, denies sore throat. CARDIOVASCULAR: Denies chest pain, palpitations or syncopal episodes. RESPIRATORY: Positive for shortness of breath, cough, congestion no hemoptysis. GASTROINTESTINAL: Denies change in appetite, denies abdominal pain GENITOURINARY: Denies hematuria, denies infections. MUSKULOSKELETAL: Denies pain, denies swelling. INTEGUMENTARY: Denies rash, denies eczema. NEUROLOGICAL: Denies recent memory loss, no recent seizure activity. PSYCHIATRIC: Denies anxiety, denies depression. HEMATOLOGIC/LYMPHATIC: Denies anemia, denies enlarged lymph nodes. Past Medical History Past Medical History: GERD/Reflux, Hyperlipidemia Additional Past Medical History / Comment(s): vomitng and severe acid reflux, HX OF THUMB CANCER ([place]URGERY & RADIATION [place] 2017)., Hx of burn right calf., TAILBONE & NECK PAIN- SEES DR MUSTAFA . History of Any Multi-Drug Resistant Organisms: None Reported Past Surgical History: Appendectomy, Tonsillectomy Additional Past Surgical History / Comment(s): RT HAND I&D D/T DOG BITE. NOSE FX REPAIR. EGD , skin cancer to left thumb with removal., bronchoscopy. stimulator Past Anesthesia/Blood Transfusion Reactions: No Reported Reaction Past Psychological History: No Psychological Hx Reported Smoking Status: Former smoker Past Alcohol Use History: Occasional Past Drug Use History: None Reported - Past Family History Father Family Medical History: Cancer, Coronary Artery Disease (CAD) Additional Family Medical History / Comment(s): prostate cancer Medications and Allergies Home Medications Medication Instructions Recorded Confirmed Type Cyclobenzaprine [Flexeril] 10 mg PO BID-W/MEALS 07/09/19 05/03/25 History Hydrocodone/Acetaminophen [[place] 1 tab PO Q6H PRN 06/09/20 05/03/25 History 10-325] Metoprolol Tartrate [Lopressor] 100 mg PO BID 06/09/20 05/03/25 History amLODIPine BESYLATE 10 mg PO DAILY 09/24/20 05/03/25 History Omeprazole [PriLOSEC] 40 mg PO BID #28 cap 02/17/21 05/03/25 Rx Cyclobenzaprine [Flexeril] 20 mg PO HS 04/22/25 05/03/25 History Hydrocortisone Cream 1 applic TOPICAL BID PRN 04/22/25 05/03/25 History [Hydrocortisone 2.5% Cream] Ketoconazole 2% Cream [Nizoral 2%] 1 applic TOPICAL DAILY PRN 04/22/25 05/03/25 History Azithromycin [Zithromax Z Pack] See Taper PO DIRECTED 05/03/25 05/03/25 H istory Evolocumab [Repatha Sureclick] 140 mg SQ Q14D 05/03/25 05/03/25 History SUMAtriptan succinate [Imitrex] 50 mg PO QID PRN 05/03/25 05/03/25 History methylPREDNISolone Dose Pack See Taper PO DIRECTED 05/03/25 05/03/25 History [Medrol Dose Pack] Allergies Allergy/AdvReac Type Severity Reaction Status Date / Time Sulfa (Sulfonamide Allergy Severe Anaphylaxis, Verified 05/03/25 09:42 Antibiotics) FEVER, AFFECTED LIVER hydralazine Allergy Rash/Hives Verified 05/03/25 09:42 hydrochlorothiazide Allergy Rash/Hives Verified 05/03/25 09:42 lisinopril Allergy Rash/Hives Verified 05/03/25 09:42 Penicillins Allergy Respitory Verified 05/03/25 09:42 Distress amoxicillin [From Augmentin] AdvReac Severe DIZZINESS,S Verified 05/03/25 09:42 HAKINESS clavulanic acid AdvReac Severe DIZZINESS,S Verified 05/03/25 09:42 [From Augmentin] HAKINESS chlorthalidone AdvReac BLADDER Verified 05/03/25 09:42 PAIN clonidine AdvReac STOMACH Verified 05/03/25 09:42 ULCERS escitalopram [From Lexapro] AdvReac Diarrhea Verified 05/03/25 09:42 losartan AdvReac STOMACH Verified 05/03/25 09:42 ULCERS Physical Exam Vitals: Vital Signs Temp Pulse Resp BP Pulse Ox 05/03/25 08:07 101 H 05/03/25 07:48 105 H 05/03/25 06:16 97.4 F L 88 20 90 L 05/03/25 04:23 92 05/03/25 04:13 91 05/03/25 03:47 105 H 22 98 05/03/25 03:16 125 H 22 158/85 91 L Intake and Output 05/02/25 05/03/25 05/03/25 22:59 06:59 14:59 Other: Weight 87.997 kg GENERAL EXAM: Alert, 64-year-old male, on 5 L nasal cannula, fairly comfortable in no apparent distress. HEAD: Normocephalic. EYES: Normal reaction of pupils, equal size. NOSE: Clear with pink turbinates. THROAT: No erythema or exudates. NECK: No masses, no JVD. CHEST: No chest wall deformity. LUNGS: Equal air entry with bilateral scattered rhonchi. CVS: S1 and S2 normal with no audible murmur, regular rhythm. ABDOMEN: No hepatosplenomegaly, normal bowel sounds, no guarding or rigidity. SPINE: No scoliosis or deformity SKIN: No rashes CENTRAL NERVOUS SYSTEM: No focal deficits, tone is normal in all 4 extremities. EXTREMITIES: There is no peripheral edema. No clubbing, no cyanosis. Peripheral pulses are intact. Results - Laboratory Findings CBC and BMP: 05/03/25 03:30 05/03/25 03:30 PT/INR, D-dimer PT 10.2 sec (10.0-12.5) 05/03/25 03:30 INR 0.9 (<1.2) 05/03/25 03:30 D-Dimer 1.02 mg/L FEU (<0.60) H 05/03/25 03:30 Abnormal lab findings: Abnormal Labs 05/03/25 05/03/25 05/03/25 03:30 03:30 03:30 WBC 18.89 H Plt Count 608 H Immature Gran # 0.21 H Neutrophils # 14.41 H Monocytes # 2.07 H Eosinophils # 0.01 L APTT 20.4 L D-Dimer 1.02 H BUN 24 H Plasma Lactic Acid Darrin AST 126 H ALT 248 H Alkaline Phosphatase 392 H 05/03/25 03:30 WBC Plt Count Immature Gran # Neutrophils # Monocytes # Eosinophils # APTT D-Dimer BUN Plasma Lactic Acid Darrin 3.4 H* AST ALT Alkaline Phosphatase - Diagnostic Findings Chest x-ray: image reviewed CT scan - chest: image reviewed Assessment and Plan Assessment: Acute hypoxic respiratory failure secondary to suspected empyema of the left lung. Failed outpatient treatment Marijuana use Hyperlipidemia Gastroesophageal reflux disease History of skin cancer of the left thumb postsurgery Former smoker Plan: The patient was seen and evaluated Imaging, labs and medications reviewed Currently on 5 L nasal cannula Titrate the FiO2 as tolerated Initiate Tessalon Perles Initiate Robitussin Continue DuoNeb inhalations Could add Pulmicort and Perforomist inhalations Add Solu-Medrol Add salt and soda mouthwash Continue vancomycin and cefepime Obtain a sputum culture Consult to interventional radiology for pigtail catheter placement Consult to cardiothoracic surgery for possible lytic infusions We will continue to follow and make further recommendations based on his clinical status I have personally seen and examined the patient, performed the documentation and the assessment and plan as written. Number of minutes spent on the visit: 20 Dictation was produced using [employer] software. Please excuse any grammatical, word or spelling errors.
--- NOTE | 2025-05-03 10:51 | P.GSCN ---
History of Present Illness Consult date: 05/03/25 Reason for Consult: Empyema Requesting physician: Kasia Granados History of present illness: This is a 64-year-old gentleman who follows outpatient with Dr. Dayo Luo for primary care and nurse practitioner Mike Farias out of Dr. Leon's office for pain management. He has a previous medical history of hypertension, hyperlipidemia, chronic pain, GERD, previous marijuana use, daily EtOH use although has not had any alcohol in the last 2 1/2 weeks. He also reports questionable [place] and CVA, however upon further questioning it is hard to elicit symptoms or therapeutic treatments administered. Apparently this gentleman has had complaints of progressive shortness of breath and productive cough for the last couple of weeks. He was seen in the emergency room here on April 22, was diagnosed with bronchitis, offered admission but patient declined, and he was discharged to home with prescription for Zithromax. Unfortunately the patient feels he has not gotten any better and has gotten progressively worse. He is not sure if he has had any fevers. He presented back to the emergency room this morning. EKG demonstrated sinus rhythm. Chest x-ray revealed left lower lobe consolidation. Chest CTA revealed left lower lobe consolidation consistent with empyema. Lab work revealed WBC 18.89, platelet count 608, D-dimer 1.02, creatinine 0.96, lactic acid 3.4, AST 126, ALT 248, troponin negative, BNP 362, and viral screen negative. Because of elevated liver enzymes abdomen/pelvis CT was also completed which showed no acute findings. The patient is to be admitted with IV antibiotics as well as IV Solu-Medrol. Consultation was placed to pulmonology who then placed consultation to thoracic surgery for rec ommendations regarding empyema. Review of Systems Review of systems was completed and was negative except as noted - Respiratory Reports cough with sputum, Reports dyspnea Past Medical History Past Medical History: Cancer, GERD/Reflux, Hyperlipidemia, Hypertension Additional Past Medical History / Comment(s): vomitng and severe acid reflux, HX OF THUMB CANCER ([place]URGERY & RADIATION [place] 2017)., Hx of burn right calf., TAILBONE & NECK PAIN- SEES DR LEON . History of Any Multi-Drug Resistant Organisms: None Reported Past Surgical History: Appendectomy, Tonsillectomy Additional Past Surgical History / Comment(s): RT HAND I&D D/T DOG BITE. NOSE FX REPAIR. EGD , skin cancer to left thumb with removal., bronchoscopy. stimulator Past Anesthesia/Blood Transfusion Reactions: No Reported Reaction Past Psychological History: No Psychological Hx Reported Smoking Status: Never smoker Past Alcohol Use History: Occasional Additional Past Alcohol Use History / Comment(s): Used to drink beer daily but has not drank in the last 2 weeks since he has been sick Past Drug Use History: Marijuana Additional Drug Use History / Comment(s): Denies any tobacco use although does state he used to smoke marijuana regularly - Past Family History Father Family Medical History: Cancer, Coronary Artery Disease (CAD) Additional Family Medical History / Comment(s): prostate cancer Medications and Allergies Home Medications Medication Instructions Recorded Confirmed Type Cyclobenzaprine [Flexeril] 10 mg PO BID-W/MEALS 07/09/19 05/03/25 History Hydrocodone/Acetaminophen [[place] 1 tab PO Q6H PRN 06/09/20 05/03/25 History 10-325] Metoprolol Tartrate [Lopressor] 100 mg PO BID 06/09/20 05/03/25 History amLODIPine BESYLATE 10 mg PO DAILY 09/24/20 05/03/25 History Omeprazole [PriLOSEC] 40 mg PO BID #28 cap 02/17/21 05/03/25 Rx Cyclobenzaprine [Flexeril] 20 mg PO HS 04/22/25 05/03/25 History Hydrocortisone Cream 1 applic TOPICAL BID PRN 04/22/25 05/03/25 History [Hydrocortisone 2.5% Cream] Ketoconazole 2% Cream [Nizoral 2%] 1 applic TOPICAL DAILY PRN 04/22/25 05/03/25 History Azithromycin [Zithromax Z Pack] See Taper PO DIRECTED 05/03/25 05/03/25 History Evolocumab [Repatha Sureclick] 140 mg SQ Q14D 05/03/25 05/03/25 History SUMAtriptan succinate [Imitrex] 50 mg PO QID PRN 05/03/25 05/03/25 History methylPREDNISolone Dose Pack See Taper PO DIRECTED 05/03/25 05/03/25 History [Medrol Dose Pack] Allergies Allergy/AdvReac Type Severity Reaction Status Date / Time Sulfa (Sulfonamide Allergy Severe Anaphylaxis, Verified 05/03/25 09:42 Antibiotics) FEVER, AFFECTED LIVER hydralazine Allergy Rash/Hives Verified 05/03/25 09:42 hydrochlorothiazide Allergy Rash/Hives Verified 05/03/25 09:42 lisinopril Allergy Rash/Hives Verified 05/03/25 09:42 Penicillins Allergy Respitory Verified 05/03/25 09:42 Distress amoxicillin [From Augmentin] AdvReac Severe DIZZINESS,S Verified 05/03/25 09:42 HAKINESS clavulanic acid AdvReac Severe DIZZINESS,S Verified 05/03/25 09:42 [From Augmentin] HAKINESS chlorthalidone AdvReac BLADDER Verified 05/03/25 09:42 PAIN clonidine AdvReac STOMACH Verified 05/03/25 09:42 ULCERS escitalopram [From Lexapro] AdvReac Diarrhea Verified 05/03/25 09:42 losartan AdvReac STOMACH Verified 05/03/25 09:42 ULCERS Surgical - Exam Vital Signs Pulse Resp BP Pulse Ox 125 H 22 158/85 91 L 05/03/25 03:16 05/03/25 03:16 05/03/25 03:16 05/03/25 03:16 CONSTITUTIONAL: Awake and alert, cooperative, well-developed, well-nourished, no pain, no acute distress EYES: Pupils equal, round, reactive to light, normal ocular movement ENT: Moist mucous membranes without oral lesions present NECK: No masses, no bruits, trachea midline RESPIRATORY: Lungs sounds coarse bilaterally, diminished in the left base. Respirations even, nonlabored. Currently on 12 L high flow nasal cannula. Strong cough. No chest wall deformities. No clubbing or cyanosis present CARDIOVASCULAR: S1, S2 present. Regular rate and rhythm, sinus rhythm on telemetry. Palpable peripheral pulses bilaterally. No edema present. No calf pain or tenderness noted GASTROINTESTINAL: Abdomen soft, nontender, nondistended, obese without masses or organomegaly noted. There is no rebound or guarding present. Active bowel sounds present 4 quadrants. GENITOURINARY: Deferred INTEGUMENTARY: Skin is warm and dry NEUROLOGIC: Cranial nerves II through XII intact, normal coordination, no obvious motor or sensory deficits, speech is normal MUSKULOSKELETAL: Able to move all extremities, strength equal bilaterally, normal posture PSYCHIATRIC: Alert and oriented to person place and time Results - Labs 05/03/25 03:30 05/03/25 03:30 Abnormal Lab Results - Last 24 Hours (Table) 05/03/25 05/03/25 05/03/25 Range/Units 03:30 03:30 03:30 WBC 18.89 H (4.50-10.00) 10*3/uL Plt Count 608 H (140-440) 10*3/uL Immature Gran # 0.21 H (0.00-0.04) 10*3/uL Neutrophils # 14.41 H (1.80-7.70) 10*3/uL Monocytes # 2.07 H (0.20-1.00) 10*3/uL Eosinophils # 0.01 L (0.04-0.35) 10*3/uL APTT 20.4 L (22.0-30.0) sec D-Dimer 1.02 H (<0.60) mg/L FEU BUN 24 H (9-20) mg/dL Plasma Lactic Acid Darrin (0.7-2.0) mmol/L AST 126 H (17-59) U/L ALT 248 H (4-49) U/L Alkaline Phosphatase 392 H (38-126) U/L 05/03/25 Range/Units 03:30 WBC (4.50-10.00) 10*3/uL Plt Count (140-440) 10*3/uL Immature Gran # (0.00-0.04) 10*3/uL Neutrophils # (1.80-7.70) 10*3/uL Monocytes # (0.20-1.00) 10*3/uL Eosinophils # (0.04-0.35) 10*3/uL APTT (22.0-30.0) sec D-Dimer (<0.60) mg/L FEU BUN (9-20) mg/dL Plasma Lactic Acid Darrin 3.4 H* (0.7-2.0) mmol/L AST (17-59) U/L ALT (4-49) U/L Alkaline Phosphatase (38-126) U/L Diabetes panel 05/03/25 Range/Units 03:30 Sodium 138 (137-145) mmol/L Potassium 5.1 (3.5-5.1) mmol/L Chloride 103 (98-107) mmol/L Carbon Dioxide 22 (22-30) mmol/L BUN 24 H (9-20) mg/dL Creatinine 0.96 (0.66-1.25) mg/dL Glucose 78 (74-99) mg/dL Calcium 9.1 (8.4-10.2) mg/dL AST 126 H (17-59) U/L ALT 248 H (4-49) U/L Alkaline Phosphatase 392 H (38-126) U/L Total Protein 6.8 (6.3-8.2) g/dL Albumin 3.5 (3.5-5.0) g/dL Calcium panel 05/03/25 Range/Units 03:30 Calcium 9.1 (8.4-10.2) mg/dL Albumin 3.5 (3.5-5.0) g/dL Pituitary panel 05/03/25 Range/Units 03:30 Sodium 138 (137-145) mmol/L Potassium 5.1 (3.5-5.1) mmol/L Chloride 103 (98-107) mmol/L Carbon Dioxide 22 (22-30) mmol/L BUN 24 H (9-20) mg/dL Creatinine 0.96 (0.66-1.25) mg/dL Glucose 78 (74-99) mg/dL Calcium 9.1 (8.4-10.2) mg/dL Adrenal panel 05/03/25 Range/Units 03:30 Sodium 138 (137-145) mmol/L Potassium 5.1 (3.5-5.1) mmol/L Chloride 103 (98-107) mmol/L Carbon Dioxide 22 (22-30) mmol/L BUN 24 H (9-20) mg/dL Creatinine 0.96 (0.66-1.25) mg/dL Glucose 78 (74-99) mg/dL Calcium 9.1 (8.4-10.2) mg/dL Total Bilirubin 0.6 (0.2-1.3) mg/dL AST 126 H (17-59) U/L ALT 248 H (4-49) U/L Alkaline Phosphatase 392 H (38-126) U/L Total Protein 6.8 (6.3-8.2) g/dL Albumin 3.5 (3.5-5.0) g/dL - Imaging Chest x-ray: report reviewed, image reviewed CT scan - chest: report reviewed, image reviewed EKG: image reviewed Assessment and Plan Assessment: Left-sided empyema Leukocytosis Lactic acidosis Transaminitis Shortness of breath, productive cough History of hypertension Hyperlipidemia Chronic pain with stimulator and chronic narcotic use GERD Previous marijuana use Daily EtOH use although has not had any alcohol in the last 2 1/2 weeks Plan: The patient was seen and examined sitting up in recliner in the emergency room in no acute distress although he does state he feels terrible. Does complain of shortness of breath and sore scratchy throat. Also asking for his chronic pain medication which he states he is overdue for. Chart/diagnostics reviewed. Case was reviewed with Dr. Irving. Agree with pulmonology recommendations of pigtail catheter placement, interventional radiology has been consulted. Once placed we will instill lytic therapy. Continue antibiotics, steroids. Wean oxygen as tolerated. Incentive spirometry ordered and should be encouraged. Increase activity as tolerated. Home medications ordered. Medical management of other comorbidities per internal medicine, pulmonology. Thank you Dr. Granados for this consult. We will continue to follow along and make further recommendations as appropriate. I have personally seen and examined the patient, performed the documentation and the assessment and plan as written. Number of minutes spent on the visit: 30. LESLIE Hernandez
[2025-05-03] MEDS: METOPROLOL TARTRATE 50 MG TAB PO SCH (11:38)
[2025-05-03] MEDS: HYDROcodone/APAP 10-325MG 1 EACH TAB PO PRN (11:38)
[2025-05-03] MEDS: amLODIPine 10 MG TAB PO SCH (11:38)
[2025-05-03] MEDS: IPRATROPIUM-ALBUTEROL 3 ML NEB INHALATION SCH (11:39)
[2025-05-03] MEDS: SALT AND SODA MOUTHWASH 1,000 ML PO SCH (13:13)
[2025-05-03] MEDS: methylPREDNISolone SOD SUCCI 125 MG/2 ML VIAL IV SCH (13:55)
[2025-05-03] MEDS: methylPREDNISolone SOD SUCCI 40 MG/ML 1 ML VIAL IV SCH (14:34)
--- NOTE | 2025-05-03 15:49 | P.HPIM ---
History of Present Illness H&P Date: 05/03/25 History of present illness; patient 64-year-old gentleman with past medical history significant for hypertension, hyperlipidemia, GERD who presented the ER because of shortness of breath for the last 2 weeks patient stated that he was all right 2 weeks back when he initially came to the ER with symptoms of cough and congestion. Patient said that he was at that time getting short of breath on exertion. Patient denied any fever or chills at the time. Patient was worked up in the ER and was discharged on oral antibiotics and steroids. Patient stated that he continued to have shortness of breath which progressed from only present on exertion to even at rest. Patient was complaining of productive cough. There was no complaint of fever or chills. Patient was complaining of malaise and generalized weakness. Patient denied any chest pain. Patient denies any palpitation. Patient also complaining of orthopnea . Denies any nausea, vomiting abdominal pain. Patient denies any complaint of dizziness. There is no complaint of headache. Initial lab work done in the ER showed WBC 18.89, hemoglobin 14.4, platelet count 608, D-dimer 1.02, sodium 138, potassium 5.1, BUN 24, creatinine 0.96, lactate 3.4, bilirubin 0.6, AST 126, ALT 248, troponin 0.012 Influenza A not detected Influenza B not detected RSV not detected COVID-19 not detected EKG done in the ER showed heart rate of 99, no ST segment elevation or depression seen, no T-wave inversions seen. Chest x-ray done in the ER showed left lower lobe consolidation CT head done showed no acute intracranial process CTA head and neck done showed no evidence of of dissection of the cervical internal carotid arteries or vertebral arteries, no evidence of significant stenosis at the carotid bifurcations, no evidence of intracranial high-grade stenosis or aneurysm CT abdomen pelvis done showed no acute abdominal process CT chest done showed 10.8 x 5.9 x 16 cm left lower lobe air-filled collection with compressive atelectasis of the left lower lobe Patient admitted to internal medicine service REVIEW OF SYSTEMS: CONSTITUTIONAL: No fever, no malaise, no fatigue. HEENT: No recent visual problems or hearing problems. Denied any sore throat. CARDIOVASCULAR: As mentioned above PULMONARY: As mentioned above. GASTROINTESTINAL: No diarrhea, no nausea, no vomiting, no abdominal pain. NEUROLOGICAL: No headaches, no weakness, no numbness. HEMATOLOGICAL: Denies any bleeding or petechiae. GENITOURINARY: Denies any burning micturition, frequency, or urgency. MUSCULOSKELETAL/RHEUMATOLOGICAL: Denies any joint pain, swelling, or any muscle pain. ENDOCRINE: Denies any polyuria or polydipsia. The rest of the 14-point review of systems is negative. PHYSICAL EXAMINATION: GENERAL: The patient is alert and oriented x3, ill looking HEENT: Pupils are round and equally reacting to light. EOMI. No scleral icterus. No conjunctival pallor. Normocephalic, atraumatic. No pharyngeal erythema. No thyromegaly. CARDIOVASCULAR: S1 and S2 present. No murmurs, rubs, or gallops. PULMONARY: Coarse breath sound bilaterally, diminished at the bases mostly in the left lung, rhonchi audible ABDOMEN: Soft, nontender, nondistended, normoactive bowel sounds. No palpable organomegaly. MUSCULOSKELETAL: No joint swelling or deformity. EXTREMITIES: No cyanosis, clubbing, or pedal edema. NEUROLOGICAL: Gross neurological examination did not reveal any focal deficits. SKIN: No rashes. Assessment and plan Empyema Sepsis Lactic acidosis Acute hypoxic respiratory failure Acute transaminitis Marijuana use Hyperlipidemia Gastroesophageal reflux disease History of skin cancer of the left thumb postsurgery Former smoker Monitor vital signs Monitor CBC Monitor CMP Continue telemetry monitoring Ordered blood cultures ordered sputum cultures Aggressive bronchopulmonary hygiene Encourage use of I-S Continue DuoNeb inhalations Could add Pulmicort and Perforomist inhalations Start IV Solu-Medrol Start IV cefepime and vancomycin Consult pulmonar consult CT surgery Consult ID Labs and medication were reviewed.. Continue same treatment. Continue with symptomatic treatment. Resume home medication. Monitor labs and vitals. DVT and GI prophylaxis. Further recommendations as per clinical course of the patient Dictation was produced using [employer] dictation software. please excuse any grammatical, word or spelling errors. Past Medical History Past Medical History: Cancer, GERD/Reflux, Hyperlipidemia, Hypertension Additional Past Medical History / Comment(s): vomitng and severe acid reflux, HX OF THUMB CANCER (SURGERY & RADIATION [place] 2017)., Hx of burn right calf., TAILBONE & NECK PAIN- SEES DR MUSTAFA . History of Any Multi-Drug Resistant Organisms: None Reported Past Surgical History: Appendectomy, Tonsillectomy Additional Past Surgical History / Comment(s): RT HAND I&D D/T DOG BITE. NOSE FX REPAIR. EGD , skin cancer to left thumb with removal., bronchoscopy. stimulator Past Anesthesia/Blood Transfusion Reactions: No Reported Reaction Past Psychological History: No Psychological Hx Reported Smoking Status: Never smoker Past Alcohol Use History: Occasional Additional Past Alcohol Use History / Comment(s): Used to drink beer daily but has not drank in the last 2 weeks since he has been sick Past Drug Use History: Marijuana Additional Drug Use History / Comment(s): Denies any tobacco use although does state he used to smoke marijuana regularly - Past Family History Father Family Medical History: Cancer, Coronary Artery Disease (CAD) Additional Family Medical History / Comment(s): prostate cancer Medications and Allergies Home Medications Medication Instructions Recorded Confirmed Type Cyclobenzaprine [Flexeril] 10 mg PO BID-W/MEALS 07/09/19 05/03/25 History Hydrocodone/Acetaminophen [Marion 1 tab PO Q6H PRN 06/09/20 05/03/25 History 10-325] Metoprolol Tartrate [Lopressor] 100 mg PO BID 06/09/20 05/03/25 History amLODIPine BESYLATE 10 mg PO DAILY 09/24/20 05/03/25 History Omeprazole [PriLOSEC] 40 mg PO BID #28 cap 02/17/21 05/03/25 Rx Cyclobenzaprine [Flexeril] 20 mg PO HS 04/22/25 05/03/25 History Hydrocortisone Cream 1 applic TOPICAL BID PRN 04/22/25 05/03/25 History [Hydrocortisone 2.5% Cream] Ketoconazole 2% Cream [Nizoral 2%] 1 applic TOPICAL DAILY PRN 04/22/25 05/03/25 History Azithromycin [Zithromax Z Pack] See Taper PO DIRECTED 05/03/25 05/03/25 History Evolocumab [Repatha Sureclick] 140 mg SQ Q14D 05/03/25 05/03/25 History SUMAtriptan succinate [Imitrex] 50 mg PO QID PRN 05/03/25 05/03/25 History methylPREDNISolone Dose Pack See Taper PO DIRECTED 05/03/25 05/03/25 History [Medrol Dose Pack] Allergies Allergy/AdvReac Type Severity Reaction Status Date / Time Sulfa (Sulfonamide Allergy Severe Anaphylaxis, Verified 05/03/25 09:42 Antibiotics) FEVER, AFFECTED LIVER hydralazine Allergy Rash/Hives Verified 05/03/25 09:42 hydrochlorothiazide Allergy Rash/Hives Verified 05/03/25 09:42 lisinopril Allergy Rash/Hives Verified 05/03/25 09:42 Penicillins Allergy Respitory Verified 05/03/25 09:42 Distress amoxicillin [From Augmentin] AdvReac Severe DIZZINESS,S Verified 05/03/25 09:42 HAKINESS clavulanic acid AdvReac Severe DIZZINESS,S Verified 05/03/25 09:42 [From Augmentin] HAKINESS chlorthalidone AdvReac BLADDER Verified 05/03/25 09:42 PAIN clonidine AdvReac STOMACH Verified 05/03/25 09:42 ULCERS escitalopram [From Lexapro] AdvReac Diarrhea Verified 05/03/25 09:42 losartan AdvReac STOMACH Verified 05/03/25 09:42 ULCERS Physical Exam Vitals: Vital Signs Temp Pulse Resp BP Pulse Ox 05/03/25 14:09 89 20 125/79 05/03/25 13:12 97 16 94 L 05/03/25 08:07 101 H 05/03/25 07:48 105 H 05/03/25 06:16 97.4 F L 88 20 90 L 05/03/25 04:23 92 05/03/25 04:13 91 05/03/25 03:47 105 H 22 98 05/03/25 03:16 125 H 22 158/85 91 L Intake and Output 05/03/25 05/03/25 05/03/25 06:59 14:59 22:59 Other: Weight 87.997 kg Results CBC & Chem 7: 05/03/25 03:30 05/03/25 03:30 Labs: Abnormal Lab Results - Last 24 Hours (Table) 05/03/25 05/03/25 05/03/25 Range/Units 03:30 03:30 03:30 WBC 18.89 H (4.50-10.00) 10*3/uL Plt Count 608 H (140-440) 10*3/uL Immature Gran # 0.21 H (0.00-0.04) 10*3/uL Neutrophils # 14.41 H (1.80-7.70) 10*3/uL Monocytes # 2.07 H (0.20-1.00) 10*3/uL Eosinophils # 0.01 L (0.04-0.35) 10*3/uL APTT 20.4 L (22.0-30.0) sec D-Dimer 1.02 H (<0.60) mg/L FEU BUN 24 H (9-20) mg/dL Plasma Lactic Acid Darrin (0.7-2.0) mmol/L AST 126 H (17-59) U/L ALT 248 H (4-49) U/L Alkaline Phosphatase 392 H (38-126) U/L 05/03/25 Range/Units 03:30 WBC (4.50-10.00) 10*3/uL Plt Count (140-440) 10*3/uL Immature Gran # (0.00-0.04) 10*3/uL Neutrophils # (1.80-7.70) 10*3/uL Monocytes # (0.20-1.00) 10*3/uL Eosinophils # (0.04-0.35) 10*3/uL APTT (22.0-30.0) sec D-Dimer (<0.60) mg/L FEU BUN (9-20) mg/dL Plasma Lactic Acid Darrin 3.4 H* (0.7-2.0) mmol/L AST (17-59) U/L ALT (4-49) U/L Alkaline Phosphatase (38-126) U/L
[2025-05-03] MEDS: CYCLOBENZAPRINE 10 MG TAB PO SCH ×2 (17:59→20:01)
[2025-05-03] MEDS: VANCOMYCIN 1,500 MG in SODIUM CHLORIDE 0.9% 500 ML 500 ML IVPB SCH (19:04)
[2025-05-03 19:58] LABS: Glucose,Whole Blood 122 mg/dL (70-110)
[2025-05-03] MEDS: PANTOPRAZOLE 40 MG TABLET PO SCH (20:01)
[2025-05-03] MEDS: guaiFENesin-DM 100-10MG/5ML 10 ML CUP PO PRN (20:44)
[2025-05-03] MEDS: BUDESONIDE 1 MG/2 ML NEBU INHALATION SCH (20:59)
[2025-05-03] MEDS: FORMOTEROL FUMARATE 20 MCG/2 ML NEBU INHALATION SCH (20:59)
--- NOTE | 2025-05-03 22:17 | P.CONS ---
History of Present Illness - Reason for Consult Consult date: 05/03/25 Empyema Requesting physician: Stevo Lewis - Chief Complaint Shortness of breath and cough x 1 month - History of Present Illness Patient is a 64-year-old male with past medical history significant for hypertension hyperlipidemia reflux history of thumb cancer status post and radiation has been dealing with shortness of breath and cough for more than a month and this patient has been treated x 2 with Zithromax and a tapering course of prednisone patient mentioned have some improvement initially however subsequently worsening shortness of breath patient also have a cough moderate intensity and has been constant purulent sputum denies any pleuritic chest pain patient did have some nausea but no vomiting decreased appetite no abdominal pain and no diarrhea or constipation with the symptoms the patient presented to hospital on arrival to the ER the patient was afebrile patient was tachycardic but not hypotensive, hypoxic and is currently on high flow nasal cannula oxygen patient did have elevated lactic acid white count of 18.89 creatinine 0.96 electrolytes are normal liver enzymes elevated influenza RSV COVID testing negative patient did have chest x-ray left lower lobe consolidation also have abdominal pelvis CT did show 7.7 cm left lower lobe empyema subsequently did have CT angiogram of the chest no PE there is a 16 cm left lower lobe empyema n odular opacities scattered throughout the right upper and middle lobes likely of infectious etiology patient has been evaluated by CT surgery placement of a pigtail catheter for which IR has been consulted patient was started on cefepime vancomycin infectious he was consulted for further management of antibiotic therapy Review of Systems Positive point and negatives has been mentioned in the HPI, complete review of systems was performed and all other systems are negative Past Medical History Past Medical History: Cancer, GERD/Reflux, Hyperlipidemia, Hypertension Additional Past Medical History / Comment(s): vomitng and severe acid reflux, HX OF THUMB CANCER (SURGERY & RADIATION [place] 2017)., Hx of burn right calf., TAILBONE & NECK PAIN- SEES DR MUSTAFA . History of Any Multi-Drug Resistant Organisms: None Reported Past Surgical History: Appendectomy, Tonsillectomy Additional Past Surgical History / Comment(s): RT HAND I&D D/T DOG BITE. NOSE FX REPAIR. EGD , skin cancer to left thumb with removal., bronchoscopy. stimulator Past Anesthesia/Blood Transfusion Reactions: No Reported Reaction Past Psychological History: No Psychological Hx Reported Smoking Status: Never smoker Past Alcohol Use History: Occasional Additional Past Alcohol Use History / Comment(s): Used to drink beer daily but has not drank in the last 2 weeks since he has been sick Past Drug Use History: Marijuana Additional Drug Use History / Comment(s): Denies any tobacco use although does state he used to smoke marijuana regularly - Past Family History Father Family Medical History: Cancer, Coronary Artery Disease (CAD) Additional Family Medical History / Comment(s): prostate cancer Medications and Allergies Home Medications Medication Instructions Recorded Confirmed Type Cyclobenzaprine [Flexeril] 10 mg PO BID-W/MEALS 07/09/19 05/03/25 History Hydrocodone/Acetaminophen [Aldrich 1 tab PO Q6H PRN 06/09/20 05/03/25 History 10-325] Metoprolol Tartrate [Lopressor] 100 mg PO BID 06/09/20 05/03/25 History amLODIPine BESYLATE 10 mg PO DAILY 09/24/20 05/03/25 History Omeprazole [PriLOSEC] 40 mg PO BID #28 cap 02/17/21 05/03/25 Rx Cyclobenzaprine [Flexeril] 20 mg PO HS 04/22/25 05/03/25 History Hydrocortisone Cream 1 applic TOPICAL BID PRN 04/22/25 05/03/25 History [Hydrocortisone 2.5% Cream] Ketoconazole 2% Cream [Nizoral 2%] 1 applic TOPICAL DAILY PRN 04/22/25 05/03/25 History Azithromycin [Zithromax Z Pack] See Taper PO DIRECTED 05/03/25 05/03/25 History Evolocumab [Repatha Sureclick] 140 mg SQ Q14D 05/03/25 05/03/25 History SUMAtriptan succinate [Imitrex] 50 mg PO QID PRN 05/03/25 05/03/25 History methylPREDNISolone Dose Pack See Taper PO DIRECTED 05/03/25 05/03/25 History [Medrol Dose Pack] Allergies Allergy/AdvReac Type Severity Reaction Status Date / Time Sulfa (Sulfonamide Allergy Severe Anaphylaxis, Verified 05/03/25 09:42 Antibiotics) FEVER, AFFECTED LIVER hydralazine Allergy Rash/Hives Verified 05/03/25 09:42 hydrochlorothiazide Allergy Rash/Hives Verified 05/03/25 09:42 lisinopril Allergy Rash/Hives Verified 05/03/25 09:42 Penicillins Allergy Respitory Verified 05/03/25 09:42 Distress amoxicillin [From Augmentin] AdvReac Severe DIZZINESS,S Verified 05/03/25 09:42 HAKINESS clavulanic acid AdvReac Severe DIZZINESS,S Verified 05/03/25 09:42 [From Augmentin] HAKINESS chlorthalidone AdvReac BLADDER Verified 05/03/25 09:42 PAIN clonidine AdvReac STOMACH Verified 05/03/25 09:42 ULCERS escitalopram [From Lexapro] AdvReac Diarrhea Verified 05/03/25 09:42 losartan AdvReac STOMACH Verified 05/03/25 09:42 ULCERS Physical Exam Vitals: Vital Signs Temp Pulse Resp BP Pulse Ox 05/03/25 15:52 99 20 148/90 98 05/03/25 14:09 89 20 125/79 05/03/25 13:12 97 16 94 L 05/03/25 08:07 101 H 05/03/25 07:48 105 H 05/03/25 06:16 97.4 F L 88 20 90 L 05/03/25 04:23 92 05/03/25 04:13 91 05/03/25 03:47 105 H 22 98 05/03/25 03:16 125 H 22 158/85 91 L Intake and Output 05/03/25 05/03/25 05/03/25 06:59 14:59 22:59 Other: Weight 87.997 kg GENERAL DESCRIPTION: Elderly male lying in bed, no distress. No tachypnea or accessory muscle of respiration use. HEENT: Shows Pallor , no scleral icterus. Oral mucous membrane is dry. NECK: Trachea central, no thyromegaly. LUNGS: Unlabored breathing. Decreased breath sound at the base HEART: S1, S2, regular rate and rhythm. No loud murmur ABDOMEN: Soft, no tenderness EXTREMITIES: No edema of feet. SKIN: No rash, no masses palpable. NEUROLOGICAL: The patient is awake, alert, oriented x3, mood and affect normal. Results CBC & Chem 7: 05/03/25 03:30 05/03/25 03:30 Labs: Abnormal Lab Results - Last 24 Hours (Table) 05/03/25 05/03/25 05/03/25 Range/Units 03:30 03:30 03:30 WBC 18.89 H (4.50-10.00) 10*3/uL Plt Count 608 H (140-440) 10*3/uL Immature Gran # 0.21 H (0.00-0.04) 10*3/uL Neutrophils # 14.41 H (1.80-7.70) 10*3/uL Monocytes # 2.07 H (0.20-1.00) 10*3/uL Eosinophils # 0.01 L (0.04-0.35) 10*3/uL APTT 20.4 L (22.0-30.0) sec D-Dimer 1.02 H (<0.60) mg/L FEU BUN 24 H (9-20) mg/dL Plasma Lactic Acid Darrin (0.7-2.0) mmol/L AST 126 H (17-59) U/L ALT 248 H (4-49) U/L Alkaline Phosphatase 392 H (38-126) U/L /10/16 Range/Units 03:30 WBC (4.50-10.00) 10*3/uL Plt Count (140-440) 10*3/uL Immature Gran # (0.00-0.04) 10*3/uL Neutrophils # (1.80-7.70) 10*3/uL Monocytes # (0.20-1.00) 10*3/uL Eosinophils # (0.04-0.35) 10*3/uL APTT (22.0-30.0) sec D-Dimer (<0.60) mg/L FEU BUN (9-20) mg/dL Plasma Lactic Acid Darrin 3.4 H* (0.7-2.0) mmol/L AST (17-59) U/L ALT (4-49) U/L Alkaline Phosphatase (38-126) U/L Assessment and Plan (1) Allergy to multiple antibiotics Current Visit: Yes Status: Acute Code(s): Z88.1 - ALLERGY STATUS TO OTHER ANTIBIOTIC AGENTS SNOMED Code(s): 647388291 (2) Empyema Current Visit: Yes Status: Acute Code(s): J86.9 - PYOTHORAX WITHOUT FISTULA SNOMED Code(s): 835047936 (3) Pneumonia Current Visit: Yes Status: Acute Code(s): J18.9 - PNEUMONIA, UNSPECIFIED ORGANISM SNOMED Code(s): 430538189 (4) Sepsis Current Visit: Yes Status: Acute Code(s): A41.9 - SEPSIS, UNSPECIFIED ORGANISM SNOMED Code(s): 59895127 Plan: 1patient presented to hospital with sepsis in this patient with have tachycardia elevated white count elevated lactic acid meeting ready for SIRS/sepsis source is left lower lobe empyema in this patient has failed outpatient Zithromax and steroid therapy will need to cover for resistant gram- positive as well as gram-negative pathogen. 2patient with multiple antibiotic ALLERGIES that would limit the number of antibiotic safe to use. 3await pigtail catheter placement and fluid should be sent for culture both aerobic and anaerobic. 4patient will be empirically treated with cefepime and vancomycin while waiting for the workup to be completed Multiple question concern answered We will follow on clinical condition and cultures to further adjust medication if needed Thank you for this consultation we will follow the patient along with you Dictation was produced using [employer] dictation software. please excuse any gramma tical, word or spelling errors.
[2025-05-03] MEDS ORDERED: DEXTROSE 50% SYRINGE 50 ML IVP PRN ×2 (22:25)
[2025-05-04] MEDS: traMADol 50 MG TAB PO PRN (04:48)
[2025-05-04 06:18] LABS: Glucose,Whole Blood 105 mg/dL (70-110)
[2025-05-04] MEDS: INSULIN LISPRO (HumaLOG) 100 UNIT/ML 10 mL VL SQ SCH (06:25)
[2025-05-04 07:28] LABS: ALT 152 U/L (4-49); AST 29 U/L (17-59); African American GFR (CKD) >90 (>60 ml/min/1.73 sqM); Albumin 3.2 g/dL (3.5-5.0); Alkaline Phosphatase 290 U/L (38-126); Anion Gap 13 mmol/L; Blood Urea Nitrogen 15 mg/dL (9-20); Calcium 8.7 mg/dL (8.4-10.2); Carbon Dioxide 25 mmol/L (22-30); Chloride 100 mmol/L (98-107); Glucose 99 mg/dL (74-99); Non-African American GFR(CKD) >90 (>60 ml/min/1.73 sqM); Potassium 4.2 mmol/L (3.5-5.1); Sodium 138 mmol/L (137-145); Total Protein 6.4 g/dL (6.3-8.2)
[2025-05-04 07:44] LABS: HCT 41.4 % (39.6-50.0); HGB 13.7 g/dL (13.0-17.0); MCH 29.9 pg (27.0-32.0); MCHC 33.1 g/dL (32.0-37.0); MCV 90.4 fL (80.0-97.0); Platelet Count 443 10*3/uL (140-440); RBC 4.58 10*6/uL (4.40-5.60); RDW 12.5 % (11.5-14.5); WBC 13.76 10*3/uL (4.50-10.00)
--- NOTE | 2025-05-04 07:49 | P.PN ---
Subjective Progress Note Date: 05/04/25 Principal diagnosis: Left-sided empyema, leukocytosis, lactic acidosis, transaminitis, acute hypoxic respiratory failure. History of hypertension, hyperlipidemia, chronic pain with stimulator and chronic narcotic use, GERD, previous marijuana use, daily EtOH use although has not had any alcohol in the last 2 1/2 weeks The patient was seen and examined this morning sitting up in the chair on the cardiac stepdown unit in no acute distress although he does admit to continued s hortness of breath and significant coughing with sputum production. The patient states he has not slept in 16 days. He is currently in sinus tach with heart rate in the low 100s, remains on 11 L high flow nasal cannula with oxygen saturation in the mid 90s, only able to achieve 750 mL on incentive spirometry. Remains on cefepime, vancomycin, Solu-Medrol. Awaiting pigtail catheter placement by interventional radiology for lytic therapy. No other new concerns from cardiothoracic surgery standpoint. Objective - Vital Signs Vital signs: Vital Signs Temp 98.6 F 05/04/25 03:20 Pulse 70 05/04/25 03:20 Resp 20 05/04/25 03:20 BP 151/86 05/04/25 03:20 Pulse Ox 95 05/04/25 03:20 FiO2 Intake & Output 05/03/25 05/04/25 05/04/25 18:59 06:59 18:59 Intake Total 118 540 Output Total 450 Balance 118 90 Weight 87.997 kg 88 kg Intake: Oral 118 540 Output: Urine 450 Other: Voiding Method Toilet Toilet Urinal Urinal # Voids 1 - Exam CONSTITUTIONAL: Appears uncomfortable, cooperative, no acute distress although does continue to be short of breath RESPIRATORY: Lungs sounds coarse bilaterally, diminished in the bases, left greater than right. Respirations even, nonlabored. Currently on 11 L high flow nasal cannula with oxygen saturation 95%. Able to achieve 750 mL on incentive spirometry. Strong productive cough with copious amounts of thick yellow sputum. CARDIOVASCULAR: S1, S2 present. Regular rate and rhythm, sinus tach on telemetry. Palpable peripheral pulses bilaterally. No edema present. No calf pain or tenderness noted. GASTROINTESTINAL: Abdomen soft, nontender, nondistended, obese. Active bowel sounds present 4 quadrants. Tolerating diet GENITOURINARY: Continues to void INTEGUMENTARY: Skin is warm and dry NEUROLOGIC: Cranial nerves II through XII intact MUSKULOSKELETAL: Able to move all extremities, strength equal bilaterally, gait normal PSYCHIATRIC: Alert and oriented to person place and time - Allied health notes Allied health notes reviewed: nursing - Labs CBC & Chem 7: 05/03/25 03:30 05/04/25 05:58 Labs: Abnormal Lab Results - Last 24 Hours (Table) 05/03/25 05/03/25 05/03/25 Range/Units 15:35 19:57 20:04 Creatinine (0.66-1.25) mg/dL POC Glucose (mg/dL) 122 H (70-110) mg/dL Plasma Lactic Acid Darrin 2.8 H* 2.4 H* (0.7-2.0) mmol/L ALT (4-49) U/L Alkaline Phosphatase (38-126) U/L Albumin (3.5-5.0) g/dL 05/04/25 Range/Units 05:58 Creatinine 0.50 L (0.66-1.25) mg/dL POC Glucose (mg/dL) (70-110) mg/dL Plasma Lactic Acid Darrin (0.7-2.0) mmol/L ALT 152 H (4-49) U/L Alkaline Phosphatase 290 H (38-126) U/L Albumin 3.2 L (3.5-5.0) g/dL Assessment and Plan Assessment: Left-sided empyema Leukocytosis Lactic acidosis Transaminitis Acute hypoxic respiratory failure Shortness of breath, productive cough History of hypertension Hyperlipidemia Chronic pain with stimulator and chronic narcotic use GERD Previous marijuana use Daily EtOH use although has not had any alcohol in the last 2 1/2 weeks Plan: Await placement of pigtail catheter by interventional radiology, will instill lytic therapy once placed Continue antibiotics, steroids Wean oxygen as tolerated, encourage incentive spirometry use Increase activity as tolerated Continue home medications Medical management of other comorbidities per internal medicine, pulmonology. Will continue to follow
[2025-05-04] MEDS: ONDANSETRON 4 MG/2 ML VIAL IVP PRN (08:48)
[2025-05-04] MEDS: ACETAMINOPHEN TAB 325 MG TAB PO PRN (08:53)
[2025-05-04 09:48] LABS: Lymphocytes # (M) 0.28 k/uL (1.0-4.8); Monocytes # (M) 0.41 k/uL (0-1.0); Neutrophils # (M) 13.07 k/uL (1.3-7.7); Neutrophils % (M) 95 %; Total Cells Counted 100
--- NOTE | 2025-05-04 11:42 | P.PN ---
Subjective Progress Note Date: 05/04/25 Principal diagnosis: Respiratory infection. This is a very pleasant 64-year-old male patient with a known history of hyperlipidemia, gastroesophageal reflux disease, skin cancer of the thumb with previous surgery and radiation in 2017, former smoker. He has been having issues with cough and congestion for approximately 1 month now. He had been treated with antibiotics and steroids in the outpatient setting without much improvement. He was seen here in the ER in April 22 and given a Z-Rajesh. He continued with significant cough and phlegm production. He states the phlegm ta flory very metallic like and gross. He came back to the emergency room early this morning. Chest x-ray reveals a left lower lobe consolidation. ET scan of the chest reveals a 16 cm left lower lobe empyema. Nodular opacities scattered throughout the right upper and middle lobes likely infectious or inflammatory. No evidence of pulmonary embolism. White count 18.8. Hemoglobin 14.4. Platelets 608. D-dimer 1.02. Sodium 138. Potassium 5.1. Bicarb 22. BUN 24. Creatinine 0.96. Glucose 78. AST 126. ALT 248. Troponin negative x 1. proBNP 362. Viral screen negative for influenza A/B, RSV, COVID. He is seen in consultation in the emergency department. He is currently sitting up in a chair. He is afebrile. Hemodynamically stable. Maintaining O2 saturations in the low 90s on 5 L/min per nasal cannula. Progress note dated May 04, 2025. 64-year-old male seen in consultation yesterday. Please see our note above. He has a history of hyperlipidemia, GERD, and skin cancer. The patient came into the emergency department, initially on April 22 and received a Z-Rajesh, for what was thought to be a mild upper respiratory tract infection. The patient continued to have symptoms, which worsen, including cough, shortness of breath, and significant sputum production with chest congestion. He was readmitted to the hospital with a infection in the left lung, likely an abscess, with parapneumonic effusion, and possible empyema. Interventional radiology and cardiothoracic surgery were both consulted. The patient was placed on vancomycin and cefepime. Currently, he is seen in room 378. He is getting lactated Ringer's at 130 cc an hour. He is on high flow nasal cannula at 11 L. A chest x-ray is ordered for tomorrow. Current labs include a white count of 13.8, hemoglobin 13.7, hematocrit 41.4, platelet count of 443,000. Sodium 138, potassium 4.2, chlorides 100, CO2 25, anion gap 13, BUN 15, creatinine 0.50. Glucose was 105. AST is 29. ALT is 152. Alkaline phosphatase is 290. Albumin is 3.2. Objective - Vital Signs Vital signs: Vital Signs Temp 99.0 F 05/04/25 08:33 Pulse 113 H 05/04/25 08:33 Resp 20 05/04/25 08:33 BP 152/85 05/04/25 08:33 Pulse Ox 93 L 05/04/25 08:33 FiO2 Intake & Output 05/03/25 05/04/25 05/04/25 18:59 06:59 18:59 Intake Total 118 540 Output Total 450 Balance 118 90 Weight 87.997 kg 88 kg Intake: Oral 118 540 Output: Urine 450 Other: Voiding Method Toilet Toilet Toilet Urinal Urinal Urinal # Voids 1 1 # Bowel Movements 1 - Exam Mildly tachypneic, without significant distress, currently on 11 L high flow nasal O2. HEENT examination is grossly unremarkable. Mucous membranes are moist. No oral lesions. Neck supple. Full range of motion. No adenopathy thyromegaly or neck vein distention. Cardiovascular examination reveals regular rhythm rate. S1-S2 normal. No S3 or S4. No discernible murmur noted. Heart rate 100 bpm. Lungs scattered rhonchi. Few scattered crackles. No wheezes. Breath sounds equal. Abdomen soft bowel sounds are heard. No masses or tenderness. Extremities are intact. No cyanosis clubbing or edema. Skin is without rash or lesion. Neurologic examination is brief but nonfocal. - Labs CBC & Chem 7: 05/04/25 05:58 05/04/25 05:58 Labs: Abnormal Lab Results - Last 24 Hours (Table) 05/03/25 05/03/25 05/03/25 Range/Units 15:35 19:57 20:04 WBC (4.50-10.00) 10*3/uL Plt Count (140-440) 10*3/uL Immature Gran # (0.00-0.04) 10*3/uL Neutrophils # (Manual) (1.3-7.7) k/uL Lymphocytes # (Manual) (1.0-4.8) k/uL Creatinine (0.66-1.25) mg/dL POC Glucose (mg/dL) 122 H (70-110) mg/dL Plasma Lactic Acid Darrin 2.8 H* 2.4 H* (0.7-2.0) mmol/L ALT (4-49) U/L Alkaline Phosphatase (38-126) U/L Albumin (3.5-5.0) g/dL 05/04/25 05/04/25 Range/Units 05:58 05:58 WBC 13.76 H (4.50-10.00) 10*3/uL Plt Count 443 H (140-440) 10*3/uL Immature Gran # 0.06 H (0.00-0.04) 10*3/uL Neutrophils # (Manual) 13.07 H (1.3-7.7) k/uL Lymphocytes # (Manual) 0.28 L (1.0-4.8) k/uL Creatinine 0.50 L (0.66-1.25) mg/dL POC Glucose (mg/dL) (70-110) mg/dL Plasma Lactic Acid Darrin (0.7-2.0) mmol/L ALT 152 H (4-49) U/L Alkaline Phosphatase 290 H (38-126) U/L Albumin 3.2 L (3.5-5.0) g/dL Assessment and Plan Assessment: Acute hypoxic respiratory failure secondary to suspected empyema of the left lung. Marijuana use. Hyperlipidemia. Gastroesophageal reflux disease. History of skin cancer of the left thumb. Former smoker. Plan: Plan dated May 04, 2025. The patient is seen today in room 378. He actually looks a bit more comfortable today than he did yesterday in the emergency department. For 1 thing, he is not coughing near as much. He continues on oxygen, at 11 L/min. He continues on vancomycin and cefepime. He has been seen by cardiothoracic surgery. We have put in consults for them, and interventional radiology, for pigtail catheter insertion. He will likely need lytics in the form of alpha dornase and tPA. We will continue to follow make recommendations. The patient may need a decortication, should he not respond to regular drainage. Prognosis is guarded. Dictation was produced using [employer] software. Please excuse any grammatical, word or spelling errors. Time with Patient: Less than 30
[2025-05-04 12:06] LABS: Glucose,Whole Blood 109 mg/dL (70-110)
--- NOTE | 2025-05-04 15:21 | P.PN ---
Subjective Progress Note Date: 05/04/25 Principal diagnosis: Reason for follow-up is empyema Patient is a 64-year-old male with past medical history significant for hypertension hyperlipidemia reflux history of thumb cancer status post and radiation has been dealing with shortness of breath and cough for more than a month now admit to the hospital concerning for left lower lobe empyema. On today's evaluation that is 05/04/2025, Patient is afebrile patient is currently on 11 L high flow nasal oxygen and complaining of shortness of breath, the patient denies any chest pain however he did have persistent productive cough, the patient denies any nausea vomiting did not have any abdominal pain and no diarrhea. Patient white count is down to 13.76, creatinine 0.50 blood cultures are pending sputum not collected Objective - Vital Signs Vital signs: Vital Signs Temp 98.5 F 05/04/25 12:20 Pulse 98 05/04/25 12:20 Resp 24 05/04/25 12:20 BP 169/90 05/04/25 12:20 Pulse Ox 93 L 05/04/25 12:20 FiO2 Intake & Output 05/03/25 05/04/25 05/04/25 18:59 06:59 18:59 Intake Total 118 540 118 Output Total 450 Balance 118 90 118 Weight 87.997 kg 88 kg Intake: Oral 118 540 118 Output: Urine 450 Other: Voiding Method Toilet Toilet Toilet Urinal Urinal Urinal # Voids 1 1 # Bowel Movements 1 - Exam GENERAL DESCRIPTION: An elderly male lying in bed in no distress RESPIRATORY SYSTEM: Unlabored breathing , coarse breath sounds bilaterally HEART: S1 S2 regular rate and rhythm , ABDOMEN: Soft , no tenderness EXTREMITIES: No edema feet - Labs CBC & Chem 7: 05/04/25 05:58 05/04/25 05:58 Labs: Abnormal Lab Results - Last 24 Hours (Table) 05/03/25 05/03/25 05/03/25 Range/Units 15:35 19:57 20:04 WBC (4.50-10.00) 10*3/uL Plt Count (140-440) 10*3/uL Immature Gran # (0.00-0.04) 10*3/uL Neutrophils # (Manual) (1.3-7.7) k/uL Lymphocytes # (Manual) (1.0-4.8) k/uL Creatinine (0.66-1.25) mg/dL POC Glucose (mg/dL) 122 H (70-110) mg/dL Plasma Lactic Acid Darrin 2.8 H* 2.4 H* (0.7-2.0) mmol/L ALT (4-49) U/L Alkaline Phosphatase (38-126) U/L Albumin (3.5-5.0) g/dL 05/04/25 05/04/25 Range/Units 05:58 05:58 WBC 13.76 H (4.50-10.00) 10*3/uL Plt Count 443 H (140-440) 10*3/uL Immature Gran # 0.06 H (0.00-0.04) 10*3/uL Neutrophils # (Manual) 13.07 H (1.3-7.7) k/uL Lymphocytes # (Manual) 0.28 L (1.0-4.8) k/uL Creatinine 0.50 L (0.66-1.25) mg/dL POC Glucose (mg/dL) (70-110) mg/dL Plasma Lactic Acid Darrin (0.7-2.0) mmol/L ALT 152 H (4-49) U/L Alkaline Phosphatase 290 H (38-126) U/L Albumin 3.2 L (3.5-5.0) g/dL Microbiology - Last 24 Hours (Table) 05/03/25 03:30 Blood Culture - Preliminary Blood Assessment and Plan (1) Allergy to multiple antibiotics Current Visit: Yes Status: Acute Code(s): Z88.1 - ALLERGY STATUS TO OTHER ANTIBIOTIC AGENTS SNOMED Code(s): 474237787 (2) Empyema Current Visit: Yes Status: Acute Code(s): J86.9 - PYOTHORAX WITHOUT FISTULA SNOMED Code(s): 800786689 (3) Pneumonia Current Visit: Yes Status: Acute Code(s): J18.9 - PNEUMONIA, UNSPECIFIED ORGANISM SNOMED Code(s): 753938542 (4) Sepsis Current Visit: Yes Status: Acute Code(s): A41.9 - SEPSIS, UNSPECIFIED ORGANISM SNOMED Code(s): 97173152 Plan: 1patient presented to hospital with sepsis in this patient with have tachycardia elevated white count elevated lactic acid meeting ready for SIRS/sepsis source is left lower lobe empyema in this patient has failed outpatient Zithromax and steroid therapy will need to cover for resistant gram-p ositive as well as gram-negative pathogen. 2patient with multiple antibiotic ALLERGIES that would limit the number of antibiotic safe to use. 3await pigtail catheter placement scheduled for tomorrow and fluid should be sent for culture both aerobic and anaerobic. 4patient afebrile white count is trending down to continue with cefepime and vancomycin while waiting for the workup to be completed Multiple question concern answered Dictation was produced using [employer] dictation software. please excuse any grammatical, word or spelling errors. Time with Patient: Less than 30
--- NOTE | 2025-05-04 16:03 | P.PN ---
Subjective Progress Note Date: 05/04/25 64-year-old gentleman with past medical history significant for hypertension, hyperlipidemia, GERD who presented the ER because of shortness of breath for the last 2 weeks patient stated that he was all right 2 weeks back when he initially came to the ER with symptoms of cough and congestion. Patient said that he was at that time getting short of breath on exertion. Patient denied any fever or chills at the time. Patient was worked up in the ER and was discharged on oral antibiotics and steroids. Patient stated that he continued to have shortness of breath which progressed from only present on exertion to even at rest. Patient was complaining of productive cough. There was no complaint of fever or chills. Patient was complaining of malaise and generalized weakness. Patient denied any chest pain. Patient denies any palpitation. Patient also complaining of orthopnea . Denies any nausea, vomiting abdominal pain. Patient denies any complaint of dizziness. There is no complaint of headache. Initial lab work done in the ER showed WBC 18.89, hemoglobin 14.4, platelet count 608, D-dimer 1.02, sodium 138, potassium 5.1, BUN 24, creatinine 0.96, lactate 3.4, bilirubin 0.6, AST 126, ALT 248, troponin 0.012 Influenza A not detected Influenza B not detected RSV not detected COVID-19 not detected EKG done in the ER showed heart rate of 99, no ST segment elevation or depression seen, no T-wave inversions seen. Chest x-ray done in the ER showed left lower lobe consolidation CT head done showed no acute intracranial process CTA head and neck done showed no evidence of of dissection of the cervical internal carotid arteries or vertebral arteries, no evidence of significant stenosis at the carotid bifurcations, no evidence of intracranial high-grade stenosis or aneurysm CT abdomen pelvis done showed no acute abdominal process CT chest done showed 10.8 x 5.9 x 16 cm left lower lobe air-filled collection with compressive atelectasis of the left lower lobe Patient admitted to internal medicine service 05/04. Patient seen examined. States he does not feel better compared to yeste rday, still having a lot of productive cough. Complaining of orthopnea. Currently 11 L of oxygen REVIEW OF SYSTEMS: CONSTITUTIONAL: No fever, no malaise,. CARDIOVASCULAR: No chest pain, no palpitations, no syncope. PULMONARY: Mentioned above GASTROINTESTINAL: No diarrhea, no nausea, no vomiting, no abdominal pain. NEUROLOGICAL: No headaches, no weakness, PHYSICAL EXAMINATION: GENERAL: The patient is alert and oriented x3, ill looking HEENT: Pupils are round and equally reacting to light. EOMI. No scleral icterus. No conjunctival pallor. Normocephalic, atraumatic. No pharyngeal erythema. No thyromegaly. CARDIOVASCULAR: S1 and S2 present. No murmurs, rubs, or gallops. PULMONARY: Coarse breath sounds, diminished at the bases ABDOMEN: Soft, nontender, nondistended, normoactive bowel sounds. No palpable organomegaly. MUSCULOSKELETAL: No joint swelling or deformity. EXTREMITIES: No cyanosis, clubbing, or pedal edema. NEUROLOGICAL: Gross neurological examination did not reveal any focal deficits. SKIN: No rashes. Assessment and plan Empyema Sepsis Lactic acidosis Acute hypoxic respiratory failure Acute transaminitis Marijuana use Hyperlipidemia Gastroesophageal reflux disease History of skin cancer of the left thumb postsurgery Former smoker Monitor vital signs Monitor CBC Monitor CMP Continue telemetry monitoring follow-up blood cultures follow-up on sputum culture Aggressive bronchopulmonary hygiene Encourage use of I-S Continue DuoNeb inhalations Continue IV Solu-Medrol Continue IV cefepime and vancomycin Pulmonology following, recommendations noted IR consulted CT surgery following Labs and medication were reviewed.. Continue same treatment. Continue with symptomatic treatment. Resume home medication. Monitor labs and vitals. DVT and GI prophylaxis. Further recommendations as per clinical course of the patient Dictation was produced using [employer] dictation software. please excuse any grammatical, word or spelling errors. Objective - Vital Signs Vital signs: Vital Signs Temp 98.5 F 05/04/25 12:20 Pulse 98 05/04/25 12:20 Resp 24 05/04/25 12:20 BP 169/90 05/04/25 12:20 Pulse Ox 93 L 05/04/25 12:20 FiO2 Intake & Output 05/03/25 05/04/25 05/04/25 18:59 06:59 18:59 Intake Total 118 540 118 Output Total 450 Balance 118 90 118 Weight 87.997 kg 88 kg Intake: Oral 118 540 118 Output: Urine 450 Other: Voiding Method Toilet Toilet Toilet Urinal Urinal Urinal # Voids 1 1 # Bowel Movements 1 - Labs CBC & Chem 7: 05/04/25 05:58 05/04/25 05:58 Labs: Abnormal Lab Results - Last 24 Hours (Table) 05/03/25 05/03/25 05/03/25 Range/Units 15:35 19:57 20:04 WBC (4.50-10.00) 10*3/uL Plt Count (140-440) 10*3/uL Immature Gran # (0.00-0.04) 10*3/uL Neutrophils # (Manual) (1.3-7.7) k/uL Lymphocytes # (Manual) (1.0-4.8) k/uL Creatinine (0.66-1.25) mg/dL POC Glucose (mg/dL) 122 H (70-110) mg/dL Plasma Lactic Acid Darrin 2.8 H* 2.4 H* (0.7-2.0) mmol/L ALT (4-49) U/L Alkaline Phosphatase (38-126) U/L Albumin (3.5-5.0) g/dL 05/04/25 05/04/25 Range/Units 05:58 05:58 WBC 13.76 H (4.50-10.00) 10*3/uL Plt Count 443 H (140-440) 10*3/uL Immature Gran # 0.06 H (0.00-0.04) 10*3/uL Neutrophils # (Manual) 13.07 H (1.3-7.7) k/uL Lymphocytes # (Manual) 0.28 L (1.0-4.8) k/uL Creatinine 0.50 L (0.66-1.25) mg/dL POC Glucose (mg/dL) (70-110) mg/dL Plasma Lactic Acid Darrin (0.7-2.0) mmol/L ALT 152 H (4-49) U/L Alkaline Phosphatase 290 H (38-126) U/L Albumin 3.2 L (3.5-5.0) g/dL Microbiology - Last 24 Hours (Table) 05/03/25 03:30 Blood Culture - Preliminary Blood
[2025-05-04 16:49] LABS: Glucose,Whole Blood 95 mg/dL (70-110)
[2025-05-04 19:57] LABS: Glucose,Whole Blood 86 mg/dL (70-110)
[2025-05-05 05:56] LABS: Glucose,Whole Blood 81 mg/dL (70-110)
[2025-05-05] MEDS: VANCOMYCIN TROUGH DUE 1 EACH MISC MISCELLANE ONE (06:48)
[2025-05-05 07:07] LABS: African American GFR (CKD) >90 (>60 ml/min/1.73 sqM); Non-African American GFR(CKD) >90 (>60 ml/min/1.73 sqM)
--- NOTE | 2025-05-05 07:37 | P.PN ---
Subjective Progress Note Date: 05/05/25 Principal diagnosis: Left-sided empyema, leukocytosis, lactic acidosis, transaminitis, acute hypoxic respiratory failure. History of hypertension, hyperlipidemia, chronic pain with stimulator and chronic narcotic use, GERD, previous marijuana use, daily EtOH use although has not had any alcohol in the last 2 1/2 weeks The patient was seen and examined this morning sitting up in the minor on the cardiac stepdown unit in no acute distress, sleeping. He is currently in sinus tach with heart rate in the low 100s, remains on 11 L high flow nasal cannula with oxygen saturation in the mid 90s. Remains on cefepime, vancomycin, Solu- Medrol. Awaiting pigtail catheter placement by interventional radiology for lytic therapy. Patient has refused all inhaled bronchodilators and steroids for the last 24 hours. No other new concerns from cardiothoracic surgery standpoint. Objective - Vital Signs Vital signs: Vital Signs Temp 98.9 F 05/04/25 20:15 Pulse 99 05/05/25 03:27 Resp 22 05/05/25 03:27 BP 157/85 05/05/25 03:27 Pulse Ox 93 L 05/05/25 03:27 FiO2 Intake & Output 05/04/25 05/05/25 05/05/25 18:59 06:59 18:59 Intake Total 118 Output Total 400 Balance 118 -400 Weight 89.5 kg Intake: Oral 118 Output: Urine 400 Other: Voiding Method Toilet Toilet Urinal Urinal # Voids 2 # Bowel Movements 1 - Exam CONSTITUTIONAL: Appears comfortable, sleeping RESPIRATORY: Lungs sounds coarse bilaterally, diminished in the bases, left greater than right. Respirations even, nonlabored. Currently on 11 L high flow nasal cannula with oxygen saturation 93% CARDIOVASCULAR: S1, S2 present. Regular rate and rhythm, sinus tach on telemetry. Palpable peripheral pulses bilaterally. No edema present. No calf pain or tenderness noted. GASTROINTESTINAL: Abdomen soft, nontender, nondistended, obese. Active bowel sounds present 4 quadrants. Tolerating diet GENITOURINARY: Continues to void INTEGUMENTARY: Skin is warm and dry NEUROLOGIC: Cranial nerves II through XII intact MUSKULOSKELETAL: Able to move all extremities, strength equal bilaterally PSYCHIATRIC: Oriented to person place and time - Allied health notes Allied health notes reviewed: nursing - Labs CBC & Chem 7: 05/04/25 05:58 05/05/25 06:19 Labs: Abnormal Lab Results - Last 24 Hours (Table) 05/04/25 05/05/25 Range/Units 05:58 06:19 WBC 13.76 H (4.50-10.00) 10*3/uL Plt Count 443 H (140-440) 10*3/uL Immature Gran # 0.06 H (0.00-0.04) 10*3/uL Neutrophils # (Manual) 13.07 H (1.3-7.7) k/uL Lymphocytes # (Manual) 0.28 L (1.0-4.8) k/uL Creatinine 0.52 L (0.66-1.25) mg/dL Microbiology - Last 24 Hours (Table) 05/03/25 03:30 Blood Culture - Preliminary Blood - Imaging and Cardiology Chest x-ray: image reviewed Assessment and Plan Assessment: Left-sided empyema Leukocytosis Lactic acidosis Transaminitis Acute hypoxic respiratory failure Shortness of breath, productive cough History of hypertension Hyperlipidemia Chronic pain with stimulator and chronic narcotic use GERD Previous marijuana use Daily EtOH use although has not had any alcohol in the last 2 1/2 weeks Plan: Await placement of pigtail catheter by interventional radiology, will instill lytic therapy once placed Continue antibiotics, steroids Wean oxygen as tolerated, encourage incentive spirometry use Increase activity as tolerated Continue home medications Medical management of other comorbidities per internal medicine, pulmonology. Will continue to follow
--- NOTE | 2025-05-05 08:29 | XR ---
EXAMINATION TYPE: XR chest 1V portable DATE OF EXAM: 05/05/2025 6:48 AM COMPARISON: 05/03/2025 CLINICAL INDICATION: Male, 64 years old with history of Empyema, , FINDINGS: Spinal stimulator array centered along the lower thoracic spinal canal. Heart upper limits of normal in size. Similar focal pleural parenchymal opacity at the left lower lung though with improvement in aeration along the left hilar region. Right lung and pleural space appear clear. IMPRESSION: Prominent pleural-parenchymal opacity persists at the left lower lung though with improvement at the left perihilar region. [facility], , 05/05/2025 8:26 AM
[2025-05-05 11:25] LABS: Glucose,Whole Blood 80 mg/dL (70-110)
--- NOTE | 2025-05-05 13:46 | P.PN ---
Subjective Progress Note Date: 05/05/25 64-year-old gentleman with past medical history significant for hypertension, hyperlipidemia, GERD who presented the ER because of shortness of breath for the last 2 weeks patient stated that he was all right 2 weeks back when he initially came to the ER with symptoms of cough and congestion. Patient said that he was at that time getting short of breath on exertion. Patient denied any fever or chills at the time. Patient was worked up in the ER and was discharged on oral antibiotics and steroids. Patient stated that he continued to have shortness of breath which progressed from only present on exertion to even at rest. Patient was complaining of productive cough. There was no complaint of fever or chills. Patient was complaining of malaise and generalized weakness. Patient denied any chest pain. Patient denies any palpitation. Patient also complaining of orthopnea . Denies any nausea, vomiting abdominal pain. Patient denies any complaint of dizziness. There is no complaint of headache. Initial lab work done in the ER showed WBC 18.89, hemoglobin 14.4, platelet count 608, D-dimer 1.02, sodium 138, potassium 5.1, BUN 24, creatinine 0.96, lactate 3.4, bilirubin 0.6, AST 126, ALT 248, troponin 0.012 Influenza A not detected Influenza B not detected RSV not detected COVID-19 not detected EKG done in the ER showed heart rate of 99, no ST segment elevation or depression seen, no T-wave inversions seen. Chest x-ray done in the ER showed left lower lobe consolidation CT head done showed no acute intracranial process CTA head and neck done showed no evidence of of dissection of the cervical internal carotid arteries or vertebral arteries, no evidence of significant stenosis at the carotid bifurcations, no evidence of intracranial high-grade stenosis or aneurysm CT abdomen pelvis done showed no acute abdominal process CT chest done showed 10.8 x 5.9 x 16 cm left lower lobe air-filled collection with compressive atelectasis of the left lower lobe Patient admitted to internal medicine service 05/04. Patient seen examined. States he does not feel better compared to yeste rday, still having a lot of productive cough. Complaining of orthopnea. Currently 11 L of oxygen /14. Patient seen examined. Still having a lot of productive cough. Still getting short of breath on exertion. Discussed with pulmonology, they want patient to be transferred to another facility for IR drainage REVIEW OF SYSTEMS: CONSTITUTIONAL: No fever, no malaise,. CARDIOVASCULAR: No chest pain, no palpitations, no syncope. PULMONARY: Mentioned above GASTROINTESTINAL: No diarrhea, no nausea, no vomiting, no abdominal pain. NEUROLOGICAL: No headaches, no weakness, PHYSICAL EXAMINATION: GENERAL: The patient is alert and oriented x3, ill looking HEENT: Pupils are round and equally reacting to light. EOMI. No scleral icterus. No conjunctival pallor. Normocephalic, atraumatic. No pharyngeal erythema. No thyromegaly. CARDIOVASCULAR: S1 and S2 present. No murmurs, rubs, or gallops. PULMONARY: Coarse breath sounds, diminished at the bases ABDOMEN: Soft, nontender, nondistended, normoactive bowel sounds. No palpable organomegaly. MUSCULOSKELETAL: No joint swelling or deformity. EXTREMITIES: No cyanosis, clubbing, or pedal edema. NEUROLOGICAL: Gross neurological examination did not reveal any focal deficits. SKIN: No rashes. Assessment and plan Empyema Sepsis Lactic acidosis Acute hypoxic respiratory failure Acute transaminitis Marijuana use Hyperlipidemia Gastroesophageal reflux disease History of skin cancer of the left thumb postsurgery Former smoker Monitor vital signs Monitor CBC Monitor CMP Continue telemetry monitoring follow-up blood cultures follow-up on sputum culture Aggressive bronchopulmonary hygiene Encourage use of I-S Continue DuoNeb inhalations Continue IV Solu-Medrol Continue IV cefepime and vancomycin Pulmonology following, recommendations noted IR consulted CT surgery following [facility] contacted for transfer Labs and medication were reviewed.. Continue same treatment. Continue with symptomatic treatment. Resume home medication. Monitor labs and vitals. DVT and GI prophylaxis. Further recommendations as per clinical course of the patient Dictation was produced using [employer] dictation software. please excuse any gram matical, word or spelling errors. Objective - Vital Signs Vital signs: Vital Signs Temp 98.8 F 05/05/25 12:06 Pulse 95 05/05/25 12:06 Resp 20 05/05/25 12:06 BP 129/82 05/05/25 12:06 Pulse Ox 96 05/05/25 12:06 FiO2 Intake & Output 05/04/25 05/05/25 05/05/25 18:59 06:59 18:59 Intake Total 118 10 Output Total 400 725 Balance 118 -400 -715 Weight 89.5 kg Intake: IV 10 Invasive Line 4 10 Oral 118 0 Output: Urine 400 725 Other: Voiding Method Toilet Toilet Toilet Urinal Urinal Urinal # Voids 2 # Bowel Movements 1 - Labs CBC & Chem 7: 05/04/25 05:58 05/05/25 06:19 Labs: Abnormal Lab Results - Last 24 Hours (Table) 05/05/25 Range/Units 06:19 Creatinine 0.52 L (0.66-1.25) mg/dL Microbiology - Last 24 Hours (Table) 05/03/25 03:30 Blood Culture - Preliminary Blood
[2025-05-05] MEDS: VANCOMYCIN 1,500 MG in SODIUM CHLORIDE 0.9% 500 ML 500 ML IVPB SCH (14:13)
[2025-05-05 16:45] LABS: Glucose,Whole Blood 98 mg/dL (70-110)
--- NOTE | 2025-05-05 18:19 | P.PN ---
Subjective Progress Note Date: 05/05/25 This is a very pleasant 64-year-old male patient with a known history of hyperlipidemia, gastroesophageal reflux disease, skin cancer of the thumb with previous surgery and radiation in 2017, former smoker. He has been having issues with cough and congestion for approximately 1 month now. He had been t reated with antibiotics and steroids in the outpatient setting without much improvement. He was seen here in the ER in April 22 and given a Z-Rajesh. He continued with significant cough and phlegm production. He states the phlegm taste very metallic like and gross. He came back to the emergency room early this morning. Chest x-ray reveals a left lower lobe consolidation. ET scan of the chest reveals a 16 cm left lower lobe empyema. Nodular opacities scattered throughout the right upper and middle lobes likely infectious or inflammatory. No evidence of pulmonary embolism. White count 18.8. Hemoglobin 14.4. Platelets 608. D-dimer 1.02. Sodium 138. Potassium 5.1. Bicarb 22. BUN 24. Creatinine 0.96. Glucose 78. AST 126. ALT 248. Troponin negative x 1. proBNP 362. Viral screen negative for influenza A/B, RSV, COVID. He is seen in consultation in the emergency department. He is currently sitting up in a chair. He is afebrile. Hemodynamically stable. Maintaining O2 saturations in the low 90s on 5 L/min per nasal cannula. Progress note dated May 04, 2025. 64-year-old male seen in consultation yesterday. Please see our note above. He has a history of hyperlipidemia, GERD, and skin cancer. The patient came into the emergency department, initially on April 22 and received a Z-Rajesh, for what was thought to be a mild upper respiratory tract infection. The patient continued to have symptoms, which worsen, including cough, shortness of breath, and significant sputum production with chest congestion. He was readmitted to the hospital with a infection in the left lung, likely an abscess, with parapneumonic effusion, and possible empyema. Interventional radiology and cardiothoracic surgery were both consulted. The patient was placed on vancomycin and cefepime. Currently, he is seen in room 378. He is getting lactated Ringer's at 130 cc an hour. He is on high flow nasal cannula at 11 L. A chest x-ray is ordered for tomorrow. Current labs include a white count of 13.8, hemoglobin 13.7, hematocrit 41.4, platelet count of 443,000. Sodium 138, potassium 4.2, chlorides 100, CO2 25, anion gap 13, BUN 15, creatinine 0.50. Glucose was 105. AST is 29. ALT is 152. Alkaline phosphatase is 290. Albumin is 3.2. On 05/05/2025, the patient is coughing out gross purulent secretions and significant quantities. Cultures were sent. Meanwhile, the patient remains on broad-spectrum antibiotics and the patient is currently on IV cefepime and vancomycin. The patient has a left lower lobe lung abscess as evident on the CAT scan of the chest that was done on 05/03/2025. The patient has a 10.8 x 5.9 x 16 cm left lower lobe air-fluid collection with compressive atelectasis of the left lower lobe. There is also a patchy nodular opacity within the right upper lobe. No evidence of any pulmonary embolism. Patient was supposed to have a IR guided pigtail catheter insertion and this procedure was not done due to the fact that there is no interventional radiology services over the next 1 week. The follow-up chest x-ray from today shows prominent pleural-parenchymal opacity in the left lower lobe with improvement at the level of the left perihilar. However clearly there is still an air-fluid level. No new labs from today. The patient was second dropped down to 13.7 from yesterday with a hemoglobin 13.7 and a platelet count of 443. Normal coagulation profile. The electrolytes were all normal. Normal renal function. Vancomycin level is at 5.5. The patient is currently on oxygen at 9 L with a pulse ox of 97%. Afebrile. Objective - Vital Signs Vital signs: Vital Signs Temp 98.8 F 05/05/25 12:06 Pulse 95 05/05/25 12:06 Resp 20 05/05/25 12:06 BP 129/82 05/05/25 12:06 Pulse Ox 96 05/05/25 12:06 FiO2 Intake & Output 05/04/25 05/05/25 05/05/25 18:59 06:59 18:59 Intake Total 118 0 Output Total 400 725 Balance 118 -400 -725 Weight 89.5 kg Intake: Oral 118 0 Output: Urine 400 725 Other: Voiding Method Toilet Toilet Toilet Urinal Urinal Urinal # Voids 2 # Bowel Movements 1 - Exam Calm and comfortable, without significant distress, currently on 9L high flow nasal O2. HEENT examination is grossly unremarkable. Mucous membranes are moist. No oral lesions. Neck supple. Full range of motion. No adenopathy thyromegaly or neck vein d istention. Cardiovascular examination reveals regular rhythm rate. S1-S2 normal. No S3 or S4. No discernible murmur noted. Lungs scattered rhonchi. Few scattered crackles. No wheezes. Breath sounds equal. Abdomen soft bowel sounds are heard. No masses or tenderness. Extremities are intact. No cyanosis clubbing or edema. Skin is without rash or lesion. Neurologic examination is brief but nonfocal. - Labs CBC & Chem 7: 05/04/25 05:58 05/05/25 06:19 Labs: Abnormal Lab Results - Last 24 Hours (Table) 05/05/25 Range/Units 06:19 Creatinine 0.52 L (0.66-1.25) mg/dL Microbiology - Last 24 Hours (Table) 05/03/25 03:30 Blood Culture - Preliminary Blood Assessment and Plan Plan: Acute hypoxic respiratory failure secondary to suspected empyema of the left lung/lung abscess. The patient was found to have a 16 x 10.8 x 5.9 cm left lower lobe air-fluid collection with compressive atelectasis highly suggestive of a lung abscess/loculated empyema. Currently on IV cefepime and vancomycin. The patient is currently on 9 L of oxygen by nasal cannula. Left lung abscess/empyema loculated in addition to a patchy nodular opacity in the right upper lobe as evident on the CAT scan of the chest Acute leukocytosis secondary to above, improving Marijuana use. Hyperlipidemia. Gastroesophageal reflux disease. History of skin cancer of the left thumb. Former smoker. Plan: Wean down FiO2 as tolerated to maintain saturation above 90%, currently on 9 L Continue same antibiotic coverage and the patient is currently on a combination of cefepime and vancomycin The patient is producing copious amount of respiratory secretions and we will obtain cultures White cell count is improving Intervention radiology service is not available. Based on that, I made recommendations to transfer this patient to [facility] for IR guided drainage of the right lung abscess/loculated empyema. Case was discussed with the medical team. Continues incentive spirometer Will continue to follow
[2025-05-05 19:56] LABS: Glucose,Whole Blood 123 mg/dL (70-110)
[2025-05-06 06:01] LABS: Glucose,Whole Blood 100 mg/dL (70-110)
--- NOTE | 2025-05-06 11:31 | XR ---
EXAMINATION TYPE: XR chest 1V DATE OF EXAM: 05/06/2025 COMPARISON: 05/05/2025 CLINICAL INDICATION: Male, 64 years old with history of empyema; TECHNIQUE: Single frontal view of the chest is obtained. FINDINGS: Heart remains upper limits of normal in size. Spinal stimulator array centered at the lowe r thoracic spinal canal. Similar mild interstitial densities and more focal patchy left infrahilar an d left basilar opacity with similar appearance. IMPRESSION: Overall stable exam with mild bilateral interstitial densities and focal left infrahilar and left basilar opacity. [facility], Workstation: [facility], 05/06/2025 11:28 AM
[2025-05-06 11:36] LABS: Glucose,Whole Blood 89 mg/dL (70-110)
[2025-05-06 12:03] LABS: Basophils # (A) 0.01 10*3/uL (0.00-0.10); Basophils % (A) 0.1 %; Eosinophils # (A) 0.00 10*3/uL (0.04-0.35); Eosinophils % (A) 0.0 %; HCT 40.1 % (39.6-50.0); HGB 13.6 g/dL (13.0-17.0); Lymphocytes # (A) 0.67 10*3/uL (0.90-5.00); Lymphocytes % (A) 6.5 %; MCH 30.6 pg (27.0-32.0); MCHC 33.9 g/dL (32.0-37.0); MCV 90.1 fL (80.0-97.0); Monocytes # (A) 0.74 10*3/uL (0.20-1.00); Monocytes % (A) 7.2 %; Neutrophils # (A) 8.66 10*3/uL (1.80-7.70); Neutrophils % (A) 84.7 %; Platelet Count 387 10*3/uL (140-440); RBC 4.45 10*6/uL (4.40-5.60); RDW 12.2 % (11.5-14.5); WBC 10.23 10*3/uL (4.50-10.00)
[2025-05-06 12:28] LABS: ALT 99 U/L (4-49); AST 63 U/L (17-59); African American GFR (CKD) >90 (>60 ml/min/1.73 sqM); Albumin 2.8 g/dL (3.5-5.0); Alkaline Phosphatase 224 U/L (38-126); Anion Gap 8 mmol/L; Blood Urea Nitrogen 19 mg/dL (9-20); Calcium 8.1 mg/dL (8.4-10.2); Carbon Dioxide 31 mmol/L (22-30); Chloride 102 mmol/L (98-107); Glucose 99 mg/dL (74-99); Non-African American GFR(CKD) >90 (>60 ml/min/1.73 sqM); Potassium 3.6 mmol/L (3.5-5.1); Sodium 141 mmol/L (137-145); Total Protein 5.9 g/dL (6.3-8.2)
--- NOTE | 2025-05-06 13:36 | P.PN ---
Subjective Progress Note Date: 05/05/25 Principal diagnosis: Reason for follow-up is empyema Patient is a 64-year-old male with past medical history significant for hypertension hyperlipidemia reflux history of thumb cancer status post and radiation has been dealing with shortness of breath and cough for more than a month now admit to the hospital concerning for left lower lobe empyema. On today's evaluation that is 05/05/2025, patient has been afebrile, patient is still complaining of cough and shortness of breath currently on 11 L high flow nasal oxygen persistent nausea no abdominal discomfort or any diarrhea Patient did above creatinine 0.52 Objective - Vital Signs Vital signs: Vital Signs Temp 98.8 F 05/05/25 12:06 Pulse 95 05/05/25 12:06 Resp 20 05/05/25 12:06 BP 129/82 05/05/25 12:06 Pulse Ox 96 05/05/25 12:06 FiO2 Intake & Output 05/04/25 05/05/25 05/05/25 18:59 06:59 18:59 Intake Total 118 10 Output Total 400 725 Balance 118 -400 -715 Weight 89.5 kg Intake: IV 10 Invasive Line 4 10 Oral 118 0 Output: Urine 400 725 Other: Voiding Method Toilet Toilet Toilet Urinal Urinal Urinal # Voids 2 # Bowel Movements 1 - Exam GENERAL DESCRIPTION: An elderly male lying in bed in no distress RESPIRATORY SYSTEM: Unlabored breathing , coarse breath sounds bilaterally HEART: S1 S2 regular rate and rhythm , ABDOMEN: Soft , no tenderness EXTREMITIES: No edema feet - Labs CBC & Chem 7: 05/06/25 11:49 05/06/25 11:49 Labs: Abnormal Lab Results - Last 24 Hours (Table) 05/05/25 Range/Units 06:19 Creatinine 0.52 L (0.66-1.25) mg/dL Microbiology - Last 24 Hours (Table) 05/03/25 03:30 Blood Culture - Preliminary Blood Assessment and Plan (1) Allergy to multiple antibiotics Current Visit: Yes Status: Acute Code(s): Z88.1 - ALLERGY STATUS TO OTHER ANTIBIOTIC AGENTS SNOMED Code(s): 317670851 (2) Empyema Current Visit: Yes Status: Acute Code(s): J86.9 - PYOTHORAX WITHOUT FISTULA SNOMED Code(s): 267305830 (3) Pneumonia Current Visit: Yes Status: Acute Code(s): J18.9 - PNEUMONIA, UNSPECIFIED ORGANISM SNOMED Code(s): 002882298 (4) Sepsis Current Visit: Yes Status: Acute Code(s): A41.9 - SEPSIS, UNSPECIFIED ORGANISM SNOMED Code(s): 82561034 Plan: 1patient presented to hospital with sepsis in this patient with have tach ycardia elevated white count elevated lactic acid meeting ready for SIRS/sepsis source is left lower lobe empyema in this patient has failed outpatient Zithromax and steroid therapy will need to cover for resistant gram-positive as well as gram-negative pathogen. 2patient with multiple antibiotic ALLERGIES that would limit the number of antibiotic safe to use. 3patient is currently being considered for transfer to tertiary care as the IR service is not available at this facility 4patient afebrile white count is trending down as of yesterday, to continue with cefepime and vancomycin while waiting for the workup to be completed Multiple question concern answered Dictation was produced using [employer] dictation software. please excuse any grammatical, word or spelling errors. Time with Patient: Less than 30
--- NOTE | 2025-05-06 13:37 | P.PN ---
Subjective Progress Note Date: 05/06/25 Principal diagnosis: Reason for follow-up is empyema Patient is a 64-year-old male with past medical history significant for hypertension hyperlipidemia reflux history of thumb cancer status post and radiation has been dealing with shortness of breath and cough for more than a month now admit to the hospital concerning for left lower lobe empyema. On today's evaluation that is 05/06/2025, Patient is afebrile this morning patient did have persistent symptoms of cough bringing some purulent sputum with associated shortness of breath and nausea vomiting and diarrhea. Patient white count is down to 10.23, creatinine 0.49 blood culture negative sputum so far negative Objective - Vital Signs Vital signs: Vital Signs Temp 99.3 F 05/06/25 08:20 Pulse 68 05/06/25 08:20 Resp 22 05/06/25 08:20 BP 160/88 05/06/25 08:20 Pulse Ox 93 L 05/06/25 08:20 FiO2 Intake & Output 05/05/25 05/06/25 05/06/25 18:59 06:59 18:59 Intake Total 10 Output Total 1250 700 375 Balance -1240 -700 -375 Intake: IV 10 Invasive Line 4 10 Oral 0 Output: Urine 1250 700 375 Other: Voiding Method Toilet Toilet Toilet Urinal Urinal Urinal # Voids 1 - Exam GENERAL DESCRIPTION: An elderly male lying in bed in no distress RESPIRATORY SYSTEM: Unlabored breathing , coarse breath sounds bilaterally HEART: S1 S2 regular rate and rhythm , ABDOMEN: Soft , no tenderness EXTREMITIES: No edema feet - Labs CBC & Chem 7: 05/06/25 11:49 05/06/25 11:49 Labs: Abnormal Lab Results - Last 24 Hours (Table) 05/05/25 Range/Units 19:54 POC Glucose (mg/dL) 123 H (70-110) mg/dL Microbiology - Last 24 Hours (Table) 05/05/25 12:50 Gram Stain - Preliminary Sputum 05/03/25 03:30 Blood Culture - Preliminary Blood Assessment and Plan (1) Allergy to multiple antibiotics Current Visit: Yes Status: Acute Code(s): Z88.1 - ALLERGY STATUS TO OTHER ANTIBIOTIC AGENTS SNOMED Code(s): 763625638 (2) Empyema Current Visit: Yes Status: Acute Code(s): J86.9 - PYOTHORAX WITHOUT FISTULA SNOMED Code(s): 370807744 (3) Pneumonia Current Visit: Yes Status: Acute Code(s): J18.9 - PNEUMONIA, UNSPECIFIED ORGANISM SNOMED Code(s): 695651258 (4) Sepsis Current Visit: Yes Status: Acute Code(s): A41.9 - SEPSIS, UNSPECIFIED O RGANISM SNOMED Code(s): 45522385 Plan: 1patient presented to hospital with sepsis in this patient with have tachycardia elevated white count elevated lactic acid meeting ready for SIRS/sepsis source is left lower lobe empyema in this patient has failed outpatient Zithromax and steroid therapy will need to cover for resistant gram-positive as well as gram-negative pathogen. 2patient with multiple antibiotic ALLERGIES that would limit the number of antibiotic safe to use. 3patient is currently being considered for transfer to tertiary care as the IR service is not available at this facility patient has been accepted at [facility] waiting for a bed 4patient afebrile white count is down to 10,000 blood sputum cultures so far pending, to continue with cefepime and vancomycin while waiting for the workup to be completed Dictation was produced using [employer] dictation software. please excuse any grammatical, word or spelling errors.
--- NOTE | 2025-05-06 14:07 | P.PN ---
Subjective Progress Note Date: 05/06/25 64-year-old gentleman with past medical history significant for hypertension, hyperlipidemia, GERD who presented the ER because of shortness of breath for the last 2 weeks patient stated that he was all right 2 weeks back when he initially came to the ER with symptoms of cough and congestion. Patient said that he was at that time getting short of breath on exertion. Patient denied any fever or chills at the time. Patient was worked up in the ER and was discharged on oral antibiotics and steroids. Patient stated that he continued to have shortness of breath which progressed from only present on exertion to even at rest. Patient was complaining of productive cough. There was no complaint of fever or chills. Patient was complaining of malaise and generalized weakness. Patient denied any chest pain. Patient denies any palpitation. Patient also complaining of orthopnea . Denies any nausea, vomiting abdominal pain. Patient denies any complaint of dizziness. There is no complaint of headache. Initial lab work done in the ER showed WBC 18.89, hemoglobin 14.4, platelet count 608, D-dimer 1.02, sodium 138, potassium 5.1, BUN 24, creatinine 0.96, lactate 3.4, bilirubin 0.6, AST 126, ALT 248, troponin 0.012 Influenza A not detected Influenza B not detected RSV not detected COVID-19 not detected EKG done in the ER showed heart rate of 99, no ST segment elevation or depression seen, no T-wave inversions seen. Chest x-ray done in the ER showed left lower lobe consolidation CT head done showed no acute intracranial process CTA head and neck done showed no evidence of of dissection of the cervical internal carotid arteries or vertebral arteries, no evidence of significant stenosis at the carotid bifurcations, no evidence of intracranial high-grade stenosis or aneurysm CT abdomen pelvis done showed no acute abdominal process CT chest done showed 10.8 x 5.9 x 16 cm left lower lobe air-filled collection with compressive atelectasis of the left lower lobe Patient admitted to internal medicine service 05/04. Patient seen examined. States he does not feel better compared to yeste rday, still having a lot of productive cough. Complaining of orthopnea. Currently 11 L of oxygen 05/05. Patient seen examined. Still having a lot of productive cough. Still getting short of breath on exertion. Discussed with pulmonology, they want patient to be transferred to another facility for IR drainage 05/06. Patient seen examined. Continues to be on 9 liters of oxygen. Patient is getting short of breath on minimal exertion. Patient is frustrated, explained to him about the transfer process, [facility], patient has been accepted there, waiting on bed availability REVIEW OF SYSTEMS: CONSTITUTIONAL: No fever, no malaise,. CARDIOVASCULAR: No chest pain, no palpitations, no syncope. PULMONARY: Mentioned above GASTROINTESTINAL: No diarrhea, no nausea, no vomiting, no abdominal pain. NEUROLOGICAL: No headaches, no weakness, PHYSICAL EXAMINATION: GENERAL: The patient is alert and oriented x3, ill looking HEENT: Pupils are round and equally reacting to light. EOMI. No scleral icterus. No conjunctival pallor. Normocephalic, atraumatic. No pharyngeal erythema. No thyromegaly. CARDIOVASCULAR: S1 and S2 present. No murmurs, rubs, or gallops. PULMONARY: Coarse breath sounds, diminished at the bases ABDOMEN: Soft, nontender, nondistended, normoactive bowel sounds. No palpable organomegaly. MUSCULOSKELETAL: No joint swelling or deformity. EXTREMITIES: No cyanosis, clubbing, or pedal edema. NEUROLOGICAL: Gross neurological examination did not reveal any focal deficits. SKIN: No rashes. Assessment and plan Empyema Sepsis Lactic acidosis Acute hypoxic respiratory failure Acute transaminitis Marijuana use Hyperlipidemia Gastroesophageal reflux disease History of skin cancer of the left thumb postsurgery Former smoker Monitor vital signs Monitor CBC Monitor CMP Continue telemetry monitoring follow-up blood cultures follow-up on sputum culture Aggressive bronchopulmonary hygiene Encourage use of I-S Continue DuoNeb inhalations Continue IV Solu-Medrol Continue IV cefepime and vancomycin Pulmonology following, recommendations noted IR consulted, no IR coverage at [facility] CT surgery following [facility] contacted for transfer, patient has been accepted there [facility] contacted per patient's wishes, accepted there, waiting on bed availability Labs and medication were reviewed.. Continue same treatment. Continue with symptomatic treatment. Resume home medication. Monitor labs and vitals. DVT and GI prophylaxis. Further recommendations as per clinical course of the patient Dictation was produced using [employer] dictation software. please excuse any grammatical, word or spelling errors. Objective - Vital Signs Vital signs: Vital Signs Temp 99.3 F 05/06/25 08:20 Pulse 68 05/06/25 08:20 Resp 22 05/06/25 08:20 BP 160/88 05/06/25 08:20 Pulse Ox 93 L 05/06/25 08:20 FiO2 Intake & Output 05/05/25 05/06/25 05/06/25 18:59 06:59 18:59 Intake Total 10 Output Total 1250 700 375 Balance -4647 -298 -485 Intake: IV 10 Invasive Line 4 10 Oral 0 Output: Urine 1250 700 375 Other: Voiding Method Toilet Toilet Toilet Urinal Urinal Urinal # Voids 1 - Labs CBC & Chem 7: 05/06/25 11:49 05/06/25 11:49 Labs: Abnormal Lab Results - Last 24 Hours (Table) 05/05/25 Range/Units 19:54 POC Glucose (mg/dL) 123 H (70-110) mg/dL Microbiology - Last 24 Hours (Table) 05/05/25 12:50 Gram Stain - Preliminary Sputum 05/03/25 03:30 Blood Culture - Preliminary Blood
--- NOTE | 2025-05-06 14:09 | P.PN ---
Subjective Progress Note Date: 05/06/25 This is a very pleasant 64-year-old male patient with a known history of hyperlipidemia, gastroesophageal reflux disease, skin cancer of the thumb with previous surgery and radiation in 2017, former smoker. He has been having issues with cough and congestion for approximately 1 month now. He had been t reated with antibiotics and steroids in the outpatient setting without much improvement. He was seen here in the ER in April 22 and given a Z-Rajesh. He continued with significant cough and phlegm production. He states the phlegm taste very metallic like and gross. He came back to the emergency room early this morning. Chest x-ray reveals a left lower lobe consolidation. ET scan of the chest reveals a 16 cm left lower lobe empyema. Nodular opacities scattered throughout the right upper and middle lobes likely infectious or inflammatory. No evidence of pulmonary embolism. White count 18.8. Hemoglobin 14.4. Platelets 608. D-dimer 1.02. Sodium 138. Potassium 5.1. Bicarb 22. BUN 24. Creatinine 0.96. Glucose 78. AST 126. ALT 248. Troponin negative x 1. proBNP 362. Viral screen negative for influenza A/B, RSV, COVID. He is seen in consultation in the emergency department. He is currently sitting up in a chair. He is afebrile. Hemodynamically stable. Maintaining O2 saturations in the low 90s on 5 L/min per nasal cannula. Progress note dated May 04, 2025. 64-year-old male seen in consultation yesterday. Please see our note above. He has a history of hyperlipidemia, GERD, and skin cancer. The patient came into the emergency department, initially on April 22 and received a Z-Rajesh, for what was thought to be a mild upper respiratory tract infection. The patient continued to have symptoms, which worsen, including cough, shortness of breath, and significant sputum production with chest congestion. He was readmitted to the hospital with a infection in the left lung, likely an abscess, with parapneumonic effusion, and possible empyema. Interventional radiology and cardiothoracic surgery were both consulted. The patient was placed on vancomycin and cefepime. Currently, he is seen in room 378. He is getting lactated Ringer's at 130 cc an hour. He is on high flow nasal cannula at 11 L. A chest x-ray is ordered for tomorrow. Current labs include a white count of 13.8, hemoglobin 13.7, hematocrit 41.4, platelet count of 443,000. Sodium 138, potassium 4.2, chlorides 100, CO2 25, anion gap 13, BUN 15, creatinine 0.50. Glucose was 105. AST is 29. ALT is 152. Alkaline phosphatase is 290. Albumin is 3.2. On 05/05/2025, the patient is coughing out gross purulent secretions and significant quantities. Cultures were sent. Meanwhile, the patient remains on broad-spectrum antibiotics and the patient is currently on IV cefepime and vancomycin. The patient has a left lower lobe lung abscess as evident on the CAT scan of the chest that was done on 05/03/2025. The patient has a 10.8 x 5.9 x 16 cm left lower lobe air-fluid collection with compressive atelectasis of the left lower lobe. There is also a patchy nodular opacity within the right upper lobe. No evidence of any pulmonary embolism. Patient was supposed to have a IR guided pigtail catheter insertion and this procedure was not done due to the fact that there is no interventional radiology services over the next 1 week. The follow-up chest x-ray from today shows prominent pleural-parenchymal opacity in the left lower lobe with improvement at the level of the left perihilar. However clearly there is still an air-fluid level. No new labs from today. The patient was second dropped down to 13.7 from yesterday with a hemoglobin 13.7 and a platelet count of 443. Normal coagulation profile. The electrolytes were all normal. Normal renal function. Vancomycin level is at 5.5. The patient is currently on oxygen at 9 L with a pulse ox of 97%. Afebrile. On 05/06/2025, the patient continues to cough out copious amount of purulent respiratory secretions that are brown and loose and liquidy. A repeat chest x- ray was done and the findings are essentially stable and the patient has a left infrahilar opacity/consolidation with possible air-fluid level. He remains hy poxic and the patient is on 9 L of oxygen by nasal cannula with a pulse ox of 91%. Sputum samples are still pending for now. Meanwhile, the patient is still covered with IV cefepime and vancomycin. As mentioned earlier, the patient has a lung abscess/loculated empyema and the patient needs to go to [facility] for IR guided pigtail catheter insertion and drainage of this left lung abscess. The white cell count at 10.2 with a heme of 13.6 and the platelet count of 387. Electrolytes are all stable with a BUN of 19 and a creatinine of 0.4. Denies having any significant chest pain. He continues to have a congested cough. He is afebrile. He is also hemodynamically stable. Objective - Vital Signs Vital signs: Vital Signs Temp 98.2 F 05/06/25 04:29 Pulse 106 H 05/06/25 04:29 Resp 22 05/06/25 04:29 BP 165/100 05/06/25 04:29 Pulse Ox 94 L 05/06/25 04:29 FiO2 Intake & Output 05/05/25 05/06/25 05/06/25 18:59 06:59 18:59 Intake Total 10 Output Total 1250 700 375 Balance -1240 -700 -375 Intake: IV 10 Invasive Line 4 10 Oral 0 Output: Urine 1250 700 375 Other: Voiding Method Toilet Toilet Urinal Urinal # Voids 1 - Exam Calm and comfortable, without significant distress, currently on 9L high flow nasal O2. HEENT examination is grossly unremarkable. Mucous membranes are moist. No oral lesions. Neck supple. Full range of motion. No adenopathy thyromegaly or neck vein distention. Cardiovascular examination reveals regular rhythm rate. S1-S2 normal. No S3 or S4. No discernible murmur noted. Lungs scattered rhonchi. Few scattered crackles. No wheezes. Breath sounds equal. Abdomen soft bowel sounds are heard. No masses or tenderness. Extremities are intact. No cyanosis clubbing or edema. Skin is without rash or lesion. Neurologic examination is brief but nonfocal. - Labs CBC & Chem 7: 05/06/25 11:49 05/06/25 11:49 Labs: Abnormal Lab Results - Last 24 Hours (Table) 05/05/25 Range/Units 19:54 POC Glucose (mg/dL) 123 H (70-110) mg/dL Microbiology - Last 24 Hours (Table) 05/05/25 12:50 Gram Stain - Preliminary Sputum 05/03/25 03:30 Blood Culture - Preliminary Blood Assessment and Plan Plan: Acute hypoxic respiratory failure secondary to suspected empyema of the left lung/lung abscess. The patient was found to have a 16 x 10.8 x 5.9 cm left lower lobe air-fluid collection with compressive atelectasis highly suggestive of a lung abscess/loculated empyema. Currently on IV cefepime and vancomycin. The patient is currently on 9 L of oxygen by nasal cannula. Left lung abscess/empyema loculated in addition to a patchy nodular opacity in the right upper lobe as evident on the CAT scan of the chest Acute leukocytosis secondary to above, improving Marijuana use. Hyperlipidemia. Gastroesophageal reflux disease. History of skin cancer of the left thumb. Former smoker. Plan: Clinically unchanged and the patient remains on 9 L of oxygen by nasal cannula. I made recommendation to transfer this patient to another facility where IR guided pigtail catheter can be inserted for drainage of this lung abscess. Still working on this transfer process. Wean down FiO2 as tolerated to maintain saturation above 90%, currently on 9 L Continue same antibiotic coverage and the patient is currently on a combination of cefepime and vancomycin, awaiting cultures The patient is producing copious amount of respiratory secretions and we will obtain cultures White cell count is improving Intervention radiology service is not available. Based on that, I made recommendations to transfer this patient to [facility] for IR guided drainage of the right lung abscess/loculated empyema. Case was discussed with the medical team. Continues incentive spirometer Will continue to follow
[2025-05-06 16:52] LABS: Glucose,Whole Blood 92 mg/dL (70-110)
[2025-05-06] MEDS: VANCOMYCIN 1,750 MG in SODIUM CHLORIDE 0.9% 500 ML 500 ML IVPB SCH (18:09)
[2025-05-06 19:56] LABS: Glucose,Whole Blood 175 mg/dL (70-110)
[2025-05-06 20:52] VITALS: BP 169/86; PULSE 114; RESP 22; TEMP 98.6
--- NOTE | 2025-05-07 13:13 | P.DS ---
Providers Date of admission: 05/03/25 06:50 Expected date of discharge: 05/07/25 Attending physician: Brady Mccormick Consults: 05/03/25 06:29 Consult Physician Urgent Consulting Provider: Nick Andrade Consult Reason/Comments: sepsis, pneumonia, hypoxic resp failure, empyema Do you want consulting provider notified?: Already Contacted 05/03/25 08:12 Consult Physician Routine Consulting Provider: Tan Fields Consult Reason/Comments: Empyema Do you want consulting provider notified?: Yes 05/03/25 12:45 Consult Physician Routine Consulting Provider: Bg Krishnamurthy Consult Reason/Comments: Empyema Do you want consulting provider notified?: Yes Primary care physician: Dayo Luo Hospital Course: Discharge diagnoses; Empyema Sepsis Lactic acidosis Acute hypoxic respiratory failure Acute transaminitis Marijuana use Hyperlipidemia Gastroesophageal reflux disease History of skin cancer of the left thumb postsurgery Former smoker Hospital course; 64-year-old gentleman with past medical history significant for hypertension, hyperlipidemia, GERD who presented the ER because of shortness of breath for the last 2 weeks patient stated that he was all right 2 weeks back when he initially came to the ER with symptoms of cough and congestion. Patient said that he was at that time getting short of breath on exertion. Patient denied any fever or chills at the time. Patient was worked up in the ER and was discharged on oral antibiotics and steroids. Patient stated that he continued to have shortness of breath which progressed from only present on exertion to even at rest. Patient was complaining of productive cough. There was no complaint of fever or chills. Patient was complaining of malaise and generalized weakness. Patient denied any chest pain. Patient denies any palpitation. Patient also complaining of orthopnea . Denies any nausea, vomiting abdominal pain. Patient denies any complaint of dizziness. There is no complaint of headache. Initial lab work done in the ER showed WBC 18.89, hemoglobin 14.4, platelet count 608, D-dimer 1.02, sodium 138, potassium 5.1, BUN 24, creatinine 0.96, lactate 3.4, bilirubin 0.6, AST 126, ALT 248, troponin 0.012 Influenza A not detected Influenza B not detected RSV not detected COVID-19 not detected EKG done in the ER showed heart rate of 99, no ST segment elevation or depression seen, no T-wave inversions seen. Chest x-ray done in the ER showed left lower lobe consolidation CT head done showed no acute intracranial process CTA head and neck done showed no evidence of of dissection of the cervical internal carotid arteries or vertebral arteries, no evidence of significant stenosis at the carotid bifurcations, no evidence of intracranial high-grade stenosis or aneurysm CT abdomen pelvis done showed no acute abdominal process CT chest done showed 10.8 x 5.9 x 16 cm left lower lobe air-filled collection with compressive atelectasis of the left lower lobe Patient admitted to internal medicine service 05/04. Patient seen examined. States he does not feel better compared to yesterday, still having a lot of productive cough. Complaining of orthopnea. Currently 11 L of oxygen 05/05. Patient seen examined. Still having a lot of productive cough. Still getting short of breath on exertion. Discussed with pulmonology, they want patient to be transferred to another facility for IR drainage 05/06. Patient seen examined. Continues to be on 9 liters of oxygen. Patient is getting short of breath on minimal exertion. Patient is frustrated, explained to him about the transfer process, patient wants to be transferred to [facility], [facility] also contacted, patient has been accepted there, patient was discharged to [facility] in the evening PHYSICAL EXAMINATION: GENERAL: The patient is alert and oriented x3, ill looking HEENT: Pupils are round and equally reacting to light. EOMI. No scleral icterus. No conjunctival pallor. Normocephalic, atraumatic. No pharyngeal erythema. No thyromegaly. CARDIOVASCULAR: S1 and S2 present. No murmurs, rubs, or gallops. PULMONARY: Coarse breath sounds, diminished at the bases ABDOMEN: Soft, nontender, nondistended, normoactive bowel sounds. No palpable organomegaly. MUSCULOSKELETAL: No joint swelling or deformity. EXTREMITIES: No cyanosis, clubbing, or pedal edema. NEUROLOGICAL: Gross neurological examination did not reveal any focal deficits. SKIN: No rashes. Dictation was produced using [employer] dictation software. please excuse any grammatical, word or spelling errors. Patient Condition at Discharge: Serious Plan - Discharge Summary Discharge Rx Participant: No New Discharge Prescriptions: Continue Cyclobenzaprine [Flexeril] 10 mg PO BID-W/MEALS Metoprolol Tartrate [Lopressor] 100 mg PO BID Hydrocodone/Acetaminophen [[place] 10-325] 1 tab PO Q6H PRN PRN Reason: Pain amLODIPine BESYLATE 10 mg PO DAILY Cyclobenzaprine [Flexeril] 20 mg PO HS SUMAtriptan succinate [Imitrex] 50 mg PO QID PRN PRN Reason: Migraine Headache methylPREDNISolone Dose Pack [Medrol Dose Pack] See Taper PO DIRECTED Azithromycin [Zithromax Z Pack] See Taper PO DIRECTED Evolocumab [Repatha Sureclick] 140 mg SQ Q14D Omeprazole [PriLOSEC] 40 mg PO BID #28 cap Ketoconazole 2% Cream [Nizoral 2%] 1 applic TOPICAL DAILY PRN PRN Reason: eczema Hydrocortisone Cream [Hydrocortisone 2.5% Cream] 1 applic TOPICAL BID PRN PRN Reason: eczema Discharge Medication List Cyclobenzaprine [Flexeril] 10 mg PO BID-W/MEALS 07/09/19 [History] Hydrocodone/Acetaminophen [[place] 10-325] 1 tab PO Q6H PRN 06/09/20 [History] Metoprolol Tartrate [Lopressor] 100 mg PO BID 06/09/20 [History] amLODIPine BESYLATE 10 mg PO DAILY 09/24/20 [History] Omeprazole [PriLOSEC] 40 mg PO BID #28 cap 02/17/21 [Rx] Cyclobenzaprine [Flexeril] 20 mg PO HS 04/22/25 [History] Hydrocortisone Cream [Hydrocortisone 2.5% Cream] 1 applic TOPICAL BID PRN 04/22/25 [History] Ketoconazole 2% Cream [Nizoral 2%] 1 applic TOPICAL DAILY PRN 04/22/25 [History] Azithromycin [Zithromax Z Pack] See Taper PO DIRECTED 05/03/25 [History] Evolocumab [Repatha Sureclick] 140 mg SQ Q14D 05/03/25 [History] SUMAtriptan succinate [Imitrex] 50 mg PO QID PRN 05/03/25 [History] methylPREDNISolone Dose Pack [Medrol Dose Pack] See Taper PO DIRECTED 05/03/25 [History] Follow up Appointment(s)/Referral(s): Dayo Luo MD [Primary Care Provider] - 1-2 days Discharge/Stand Alone Forms: Who Do I Call?, Community Resources Discharge Disposition: OTHER INSTITUTION NOT DEFINED
== END 2025-05-06 23:26 | disposition short-term general hospital (02) | DRG 871 ==
LOC: EC 03:14 → 3SCARD 06:50
PROVIDERS: ADMIT Hospitalist; ATTEND Hospitalist
DX: A41.9 Sepsis, unspecified organism (principal); J86.9 Pyothorax without fistula; J96.01 Acute respiratory failure with hypoxia; E87.20 Acidosis, unspecified; I10 Essential (primary) hypertension; J98.11 Atelectasis; R04.2 Hemoptysis; K21.9 Gastro-esophageal reflux disease without esophagitis; E78.5 Hyperlipidemia, unspecified; G89.29 Other chronic pain; Z79.891 Long term (current) use of opiate analgesic; Z79.899 Other long term (current) drug therapy; Z85.828 Personal history of other malignant neoplasm of skin; Z87.891 Personal history of nicotine dependence; Z92.3 Personal history of irradiation; Z96.82 Presence of neurostimulator; Z88.2 Allergy status to sulfonamides; Z88.0 Allergy status to penicillin; Z88.1 Allergy status to other antibiotic agents; Z88.8 Allergy status to other drugs, medicaments and biological substances; R74.01 Elevation of levels of liver transaminase levels
CPT/HCPCS: 36415; 71045; 71275; 74177; 80053; 80202; 82565; 83605; 83690; 83735; 83880; 84484; 85025; 85379; 85610; 85730; 87040; 87070; 87205; 87636; 93005; 94640; 94760; 96361; 96365; 96366; 96372; 96375; 96376; 99291